=== PATIENT | female | born 1975 | race Caucasian/White ===

== ENCOUNTER 2017-11-27 16:55 | Outpatient (REF) | payer MEDICAID, SELFPAY ==
[2017-11-27 20:30] LABS: Abs Immature Grans 0.02 k/cumm (0.0-0.09); Absolute Basophil Count 0.07 k/cumm (0.0-0.2); Absolute Eosinophil Count 0.28 k/cumm (0.0-0.7); Absolute Lymphocyte Count 3.35 k/cumm (1.2-3.4); Absolute Monocyte Count 0.58 k/cumm (0.11-0.7); Absolute Neutrophil Count 5.65 k/cumm (1.2-6.7); Basophils % 0.7; Eosinophils % 2.8; HCT 45.5 % (36.0-46.0); Immature Grans % 0.2; Lymphocytes % 33.7; Mean Corpuscular Hemoglobin 31.1 pg (27.0-33.0); Mean Corpuscular Volume 94.4 fL (80-95); Mean Platelet Volume 9.5 fL (8.0-11.0); Monocytes % 5.8; Neutrophils % 56.8; Platelet Count 318 x1000/uL (130-400); RBC 4.82 m/cumm (4.00-5.20); RBC Distribution Width 13.4 % (11.7-14.6); White Blood Cell Count 9.95 k/cumm (4.4-10.8)
[2017-11-27 20:49] LABS: ALT 15 U/L (12-78); AST 11 U/L (15-37); Albumin 3.1 g/dL (3.4-5.0); Alkaline Phosphatase 103 U/L (46-116); Amylase 55 U/L (25-115); Anion Gap 10.9 mmol/L (3-11); BUN 9 mg/dL (7-18); Bilirubin, Total 0.2 mg/dL (0.2-1.0); CO2 27.1 mmol/L (21.0-32.0); CREATININE 0.71 mg/dL (0.55-1.02); Calcium 8.8 mg/dL (8.5-10.1); Chloride 106 mmol/L (98-107); Glucose 102 mg/dL (70-100); Lipase 110 U/L (73-393); Potassium 4.2 mmol/L (3.5-5.1); Sodium 144 mmol/L (136-145); Total Protein 6.2 g/dL (6.4-8.2)
== END 2017-11-27 17:15 ==
LOC: NCHCN 16:55
PROVIDERS: PCP Nurse Practitioner Family; Visit Provider Nurse Practitioner Family
DX: R10.9 Unspecified abdominal pain (principal)
CPT/HCPCS: 80053; 83690; 82150; 85025

== ENCOUNTER 2017-11-30 01:16 | Outpatient (CLI) | payer MEDICAID, SELFPAY ==
--- NOTE | 2017-11-30 08:15 | DI.CT_ITS ---
SYMPTOM/DIAGNOSIS: LOWER QUAD ABD PAIN, DIFFUSE R10.9 CT ABDOMEN AND PELVIS: The study was carried out according to the usual protocol with an intravenous administration of 100 cc Omnipaque 350 and oral ingestion of dilute Omnipaque. The lung bases are unremarkable. The liver is normal. The gallbladder is normal. There are no stones or ductal dilatation. The pancreas and spleen and kidneys are unremarkable. The adrenals are normal. There is no evidence of bowel obstruction or localized bowel abnormality. The appendix is intact. There is no evidence of free air or free fluid in the intraperitoneal space. The bladder is normal. There are small bilateral ovarian cysts. The uterus is normal. There is no evidence of an aortic aneurysm. There is no evidence of a hernia SUMMARY: No acute abnormality is demonstrated. Please see the above discussion.
[2017-11-30] MEDS: Omnipaque 350 MG/ML 50 ML BTL IJ (08:46)
[2017-11-30] MEDS: Omnipaque 350 MG/ML 100 ML BTL IJ (08:48)
== END 2017-11-30 01:36 ==
PROVIDERS: PCP Nurse Practitioner Family; Visit Provider Nurse Practitioner Family
DX: R10.31 Right lower quadrant pain (principal); N83.291 Other ovarian cyst, right side; N83.292 Other ovarian cyst, left side
CPT/HCPCS: 74177; J3490; Q9967

== ENCOUNTER 2018-01-03 01:29 | Outpatient (CLI) | payer MEDICAID, SELFPAY ==
--- NOTE | 2018-01-03 14:00 | DI.US_ITS ---
SYMPTOMS/DIAGNOSIS: PELVIC PAIN, N83.209, OVARIAN CYST PELVIC ULTRASOUND: A transabdominal and transvaginal examination was carried out. The uterus measures 8 cm in length, 4.3 cm in height and 5.1 cm in width with an endometrial stripe thickness of 2.5 mm. Note is made of small calcifications in the endometrial in the uterine fundus. There are small nabothian cysts. The right ovary measures 3.5 x 1.8 x 2.5 cm, the left ovary 1.6 x 1.9 x 3.0 cm. Follicular cysts are demonstrated in the right ovary. There is a 1.3 x 1.3 x 0.9 complex cyst in the left ovary, which may well represent a collapsing cyst. Normal blood flow is noted in the ovaries. There is nothing to suggest torsion. There is no free fluid in the pelvis. SUMMARY: A 1.3 x 1.3 x 0.9 cm complex cyst is noted in the left ovary and may represent a collapsing cyst; however, further evaluation with a repeat pelvic ultrasound in four to six weeks is suggested for further review.
== END 2018-01-03 01:49 ==
PROVIDERS: PCP Nurse Practitioner Family; Visit Provider Obstetrics & Gynecology Gynecology
DX: R10.2 Pelvic and perineal pain (principal); N83.292 Other ovarian cyst, left side
CPT/HCPCS: 76830; 76856

== ENCOUNTER 2018-08-18 16:09 | Emergency (ER) | payer MEDICAID, SELFPAY ==
[2018-08-18 16:15] VITALS: BP 133/84; PULSE 104; TEMP 37.2; O2SAT 98
--- NOTE | 2018-08-18 17:09 | DI.RAD_ITS ---
SYMPTOM/DIAGNOSIS: RIGHT GROIN/LATERAL PAIN. nO TRAUMA PELVIS AND RIGHT HIP: AP pelvis and AP and frog leg lateral views of the right hip were performed. The exam is somewhat limited by the patient's body habitus, reducing visualization of bony detail. There is no evidence of fracture or dislocation. There are no significant degenerative changes. There is no gross evidence of a lytic or blastic lesion. The SI joints are unremarkable. IMPRESSION: Negative pelvis and right hip
--- NOTE | 2018-08-18 17:09 | ED.GENADUL_ITS ---
Discharge Plan Disposition Patient Disposition: HOME Discharge Details Chief Complaint: Sorethroat Clinical Impression: Pharyngitis, Right hip pain Primary Care Provider: Angelita Cruz ED Provider: Nando Virgen Home Meds and New Rx's Prescriptions: No Action Flovent Diskus 250 mcg/actuation blister with device 1 inh IH Q12H RF: 0 nicotine 21 mg/24 hr patch 24 hour 1 patch TD Q24H RF: 0 omeprazole 20 MG capsule,delayed release(DR/EC) 20 mg PO DAILY RF: 0 cetirizine 5 MG tablet,chewable 10 mg PO DAILY RF: 0 levalbuterol tartrate [Xopenex HFA] 15 GM HFA aerosol inhaler 45 mcg Inhalation QID RF: 0 albuterol sulfate [ProAir HFA] 8.5 GM HFA aerosol inhaler 2 puff Inhalation Q6H PRN RF: 0 Savella 50 MG tablet 50 mg PO BID RF: 0 amitriptyline 100 MG tablet 100 mg PO HS RF: 0 clonazepam 1 MG tablet 1 mg PO DAILY RF: 0 acetaminophen [Tylenol] 325 MG tablet 650 mg PO Q6H PRN PRNQty: 30 RF: 0 Discharge Instructions Instructions: Pharyngitis (ED) Additional Instructions: Your strep screen was negative. We will follow-up with your culture results. X-rays of your hip were negative for fracture. Follow-up with your provider should your pain or symptoms persist. Return should pain worsen. Referrals: Angelita Cruz [Primary Care Provider] - 1 week Medical Decision Making This is a nontoxic-appearing 42-year-old female presenting with the above complaint. Vitals stable. Physical exam reveals focal tenderness over the anterior lateral right hip. Full range of motion. Pain with active range of motion. X-rays negative for acute osseous abnormality. Patient also noted to have URI symptoms including sore throat, nasal congestion, sinus pressure. Strep screen negative today. Supportive care discussed. Return precautions p rovided. She is stable for discharge at this time HPI General Date/Time Provider Initiated Documentation: 08/18/18 16:17 . HPI Narrative: Patient is a 42-year-old female with a significant past medical history for fibromyalgia, PTSD, tobacco abuse who presents to the emergency department today for sore throat and right hip pain. Patient states that she has had URI symptoms including rhinorrhea, ear congestion, sore throat and cough for the last 24 to 48 hours. She states that she is been taking cough drops for her sore throat. She denies any fever, nausea, abdominal pain or shortness of breath. Patient also complains of right hip pain. She has had hip pain in the past cervantes ana maría today her pain seems to be worse. She states that she was walking yesterday and her hip gave out. She locates her pain along the anterior lateral aspect of the right hip. Pain radiates down the lateral femur. She has been able to place weight over her right lower extremity however reports pain with active flexion and external rotation of the hip. No trauma. No numbness or tingling. She denies any lower back pain or abdominal pain. Related Data Home Medications Medication Instructions Recorded Confirmed cetirizine 10 mg PO DAILY tab-cap 07/23/12 08/18/18 levalbuterol tartrate [Xopenex HFA] 45 mcg INHALATION QID puff 07/23/12 08/18/18 omeprazole 20 mg PO DAILY tab-cap 07/23/12 08/18/18 amitriptyline 100 mg PO HS 04/11/13 08/18/18 clonazepam 1 mg PO DAILY 04/03/17 08/18/18 Savella 50 mg PO BID tab-cap NS 06/30/17 08/18/18 albuterol sulfate [ProAir HFA] 2 puff INHALATION Q6H PRN inhaler 06/30/17 08/18/18 NS acetaminophen [Tylenol] 650 mg PO Q6H PRN PRN #30 tab 07/13/17 08/18/18 fluticasone propionate 250 1 inh IH Q12H 01/01/18 08/18/18 mcg/actuation blister powder for inhalation nicotine 21 mg/24 hr daily 1 patch TD Q24H 01/01/18 08/18/18 transdermal patch Previous Rx's Medication Instructions Recorded acetaminophen [Tylenol] 650 mg PO Q6H PRN PRN #30 tab 07/13/17 Allergies Allergy/AdvReac Type Severity Reaction Status Date / Time erythromycin base Allergy Intermediate Unverified 08/18/18 16:19 [Erythromycin Base] Penicillins Allergy Intermediate Skin Rash Unverified 08/18/18 16:19 propoxyphene napsylate Allergy Intermediate Unverified 08/18/18 16:19 [From Darvocet-N 100] amoxicillin Allergy Unknown Verified 08/18/18 16:19 cyclobenzaprine Allergy Unverified 08/18/18 16:19 [From Flexeril] doxycycline Allergy Unverified 08/18/18 16:19 nabumetone Allergy Unverified 08/18/18 16:19 naproxen [From Aleve] Allergy Unverified 08/18/18 16:19 oxaprozin Allergy Unverified 08/18/18 16:19 ranitidine HCl [From Zantac] Allergy Unverified 08/18/18 16:19 Sulfa (Sulfonamide Allergy Unverified 08/18/18 16:19 Antibiotics) codeine [Codeine] AdvReac Intermediate Upset Unverified 08/18/18 16:19 stomach ibuprofen AdvReac Intermediate upset Unverified 08/18/18 16:19 stomach General Stated Complaint: Sorethroat KAYLYNN: 4 Review of Systems Constitutional Denies anorexia, Denies chills, Denies fever(s), Denies headache(s), Denies malaise, Denies night sweats and Denies weakness ENT Denies dysphagia, Denies dizziness, Denies dry mouth, Denies ear discharge, Denies headache(s), Reports nasal congestion, Reports sinus pain, Reports sore throat, Denies throat swelling and Denies tongue swelling Cardiovascular Denies dyspnea Respiratory Reports cough, Denies pain on inspiration, Denies pain with cough, Denies dyspnea and Denies wheezing Gastrointestinal Denies abdominal pain and Denies dysphagia Musculoskeletal Denies back pain, Denies deformity, Denies joint swelling, Reports limited range of motion, Denies muscle weakness, Denies numbness, Denies stiffness and Denies tingling Integumentary/Breasts Denies rash Neurologic Denies dizziness, Denies headache(s), Denies numbness, Denies tingling and Denies weakness Allergic/Immunologic Denies throat swelling, Denies tongue swelling and Denies wheezing [facility] Medical History PTSD (post-traumatic stress disorder) (Chronic) Mood disorder (Chronic) Anxiety disorder (Chronic) Fibromyalgia (Chronic) Asthma, mild persistent (Chronic) Tobacco abuse (Chronic) Learning difficulty (Chronic) Genital herpes (Chronic) Abdominal pain (Chronic) Back pain (Chronic) JULIEN II (cervical intraepithelial neoplasia II) (Acute) Follicular cyst of ovary (Acute) Varicose vein of leg (Acute) ADHD Lumbar back pain Mass of left thigh Myositis Vaginal discharge Surgical History Excision, Lesion (07/13/17) Social History Smoking/Tobacco Use Status: Former Tobacco Use Alcohol Intake: never Drug use: Never Substance use type: does not use Seatbelt use: always Do you feel safe at home: Yes Do you feel safe in your relationship?: Yes Exam Const General: cooperative and healthy appearing Orientation: alert, awake and oriented x3 HENMT Head: normal to inspection Ears: hearing grossly normal bilaterally and TM's normal bilaterally General nose exam: external nose normal Face and sinus: normal facial exam and sinuses nontender Mouth: oral mucosae normal Throat: posterior oropharynx abnormal erythema; no edema and no exudates Eyes General: appearance normal, both eyes and all related structures Neck Neck: normal visual inspection Lymphatic: lymphadenopathy Chest Chest: normal inspection of the chest Resp Effort & Inspection: normal respiratory effort and able to speak in complete sentences Auscultation: clear to auscultation bilaterally Cardio Rate: regular rate Rhythm: regular rhythm GI Inspection: normal to inspection Palpation: soft Back/Spine/Pelvis Thoracic/Lumbar Spine: thoracic and lumbar spine normal to inspection Skin General skin exam: no rashes or lesions noted Neuro Gait: normal gait Motor: muscle tone normal throughout Sensory Exam: no sensory deficits noted Extrem General: normal to inspection Right lower extremity: hip/thigh Details: normal to inspection, tenderness Location: of the hip and of the proximal upper leg and abnormal ROM Details: pain with passive ROM during Details: to flexion, to internal rotation and to external rotation Course Vital Signs Temperature 37.2 C 08/18/18 16:15 Pulse 104 H 08/18/18 16:15 Blood Pressure 133/84 08/18/18 16:15 Pulse Oximetry 98 08/18/18 16:15 Temperature 37.2 C 08/18/18 16:15 Pulse 104 H 08/18/18 16:15 Respiratory Effort 08/18/18 16:18 Blood Pressure 133/84 08/18/18 16:15 Pulse Oximetry 98 08/18/18 16:15 Oxygen Delivery Method Room Air 08/18/18 16:15 Oxygen Flow Rate 0 08/18/18 16:15 Lab/Test Results Lab/Test Results: 08/18/18 16:30 Pharynx Streptococcus Screen (MARLEN) - Pending POC Strep Test-ARNAUD(Rapid) Start: 08/18/18 16:44 Freq: .Rapid Strep Test Status: Active Protocol: Document 08/18/18 16:45 MM (Rec: 08/18/18 16:45 MM [id number]) Strep test-ARNAUD(Rapid)-POC POC-Strep test-ARNAUD (Rapid) Negative POC-Strep test-ARNAUD (Rapid) Negative
--- NOTE | 2018-08-18 17:20 | DI.VRAD_ITS ---
EXAM: XR Right Hip with Pelvis when Performed EXAM DATE/TIME: 08/18/2018 4:55 PM CLINICAL HISTORY: 42 years old, female; Right hip; Patient HX: Right groin/lateral hip pain, no trauma TECHNIQUE: Imaging protocol: XR Right hip with pelvis when performed. Views: 2 or 3 views. COMPARISON: US PELVIS TRANSVAGINAL 01/03/2018 10:07 AM FINDINGS: Bones/joints: Osseous anatomic alignment is well preserved. No acutely displaced fracture or dislocation. Joint spaces are well preserved. Soft tissues: Normal. IMPRESSION: Negative for acute skeletal pathology. Dictated and Authenticated by: Roman Mcgregor MD. Ordering:CELESTE Collier MD
== END 2018-08-18 17:42 | disposition home or self-care (01) ==
PROVIDERS: Emergency Provider Physician Assistant; PCP Nurse Practitioner Family
DX: M25.551 Pain in right hip (principal); J02.9 Acute pharyngitis, unspecified
CPT/HCPCS: 73502; 87081

== ENCOUNTER 2018-09-19 15:12 | Outpatient (REF) | payer MEDICAID, SELFPAY ==
[2018-09-19 19:58] LABS: Abs Immature Grans 0.02 k/cumm (0.0-0.09); Absolute Basophil Count 0.04 k/cumm (0.0-0.2); Absolute Eosinophil Count 0.21 k/cumm (0.0-0.7); Absolute Lymphocyte Count 2.77 k/cumm (1.2-3.4); Absolute Monocyte Count 0.72 k/cumm (0.11-0.7); Absolute Neutrophil Count 8.06 k/cumm (1.2-6.7); Basophils % 0.3; Eosinophils % 1.8; HCT 42.7 % (36.0-46.0); HGB 13.9 g/dL (12.0-15.5); Immature Grans % 0.2; Lymphocytes % 23.4; Mean Corp. HGB Concentration 32.6 g/dL (32.0-36.0); Mean Corpuscular Hemoglobin 30.5 pg (27.0-33.0); Mean Corpuscular Volume 93.8 fL (80-95); Mean Platelet Volume 9.4 fL (8.0-11.0); Monocytes % 6.1; Neutrophils % 68.2; Platelet Count 332 x1000/uL (130-400); RBC 4.55 m/cumm (4.00-5.20); RBC Distribution Width 14.5 % (11.7-14.6); White Blood Cell Count 11.82 k/cumm (4.4-10.8)
[2018-09-19 20:28] LABS: ALT 20 U/L (12-78); AST 11 U/L (15-37); Albumin 3.3 g/dL (3.4-5.0); Alkaline Phosphatase 87 U/L (46-116); Anion Gap 9.1 mmol/L (3-11); BUN 11 mg/dL (7-18); Bilirubin, Total 0.3 mg/dL (0.2-1.0); CO2 26.9 mmol/L (21.0-32.0); CREATININE 0.87 mg/dL (0.55-1.02); Calcium 8.9 mg/dL (8.5-10.1); Chloride 107 mmol/L (98-107); Glucose 75 mg/dL (70-100); Potassium 4.3 mmol/L (3.5-5.1); Sodium 143 mmol/L (136-145); Total Protein 6.5 g/dL (6.4-8.2)
== END 2018-09-19 15:32 ==
LOC: NCHCN 15:12
PROVIDERS: PCP Nurse Practitioner Family; Visit Provider Family Medicine
DX: R10.11 Right upper quadrant pain (principal)
CPT/HCPCS: 80053; 85025

== ENCOUNTER 2019-02-22 03:25 | Outpatient (CLI) | payer MEDICAID, SELFPAY ==
[2019-02-22] MEDS: Inhaler, Assist Device 1 EACH MC (10:40)
[2019-02-22] MEDS: Albuterol HFA 18 GM 200 PUFF INH IH (10:40)
--- NOTE | 2019-02-22 12:49 | PFT_ITS ---
PULMONARY FUNCTION TEST REPORT DATE OF SERVICE: February 22, 2019 REQUESTING PROVIDER: Ayesha Mendiola N.P. Spirometry shows moderately severe obstructive airways disease with significant bronchodilator response. Lung volumes show no evidence of restriction. Diffusion capacity moderately reduced, which is normal when corrected to alveolar volume. Airways resistance normal. IMPRESSION: Moderately severe obstructive airways disease with significant bronchodilator response. This is associated with moderate diffusion defect. Clinical correlation recommended. KAL/kathryn D/
== END 2019-02-22 03:45 ==
PROVIDERS: PCP Nurse Practitioner Family; Visit Provider Nurse Practitioner Family
DX: J45.909 Unspecified asthma, uncomplicated (principal); R06.09 Other forms of dyspnea; R06.2 Wheezing; F17.210 Nicotine dependence, cigarettes, uncomplicated
CPT/HCPCS: 94060; 94150; 94726; 94729

== ENCOUNTER 2019-07-15 09:16 | Emergency (ER) | payer MEDICAID, SELFPAY ==
--- NOTE | 2019-07-15 09:15 | DI.RAD_ITS ---
EXAM: XR FOOT RT COMPLETE CLINICAL HISTORY: Stepped through a box spring, twisting TECHNIQUE: COMPARISON: CR RIGHT FOOT COMPLETE from 09/16/2010 FINDINGS: Three views were obtained. There are fractures of the diaphyseal metaphyseal junctions of the 2nd th rough 4th metatarsals with slight displacement and angulation. No other fracture seen. IMPRESSION:
[2019-07-15 09:21] VITALS: BP 145/89; PULSE 109; RESP 20; TEMP 37.1; O2SAT 98
--- NOTE | 2019-07-15 10:25 | W.ED.GENAD ---
Discharge Plan Disposition Patient Disposition: HOME Condition: Stable Discharge Details Chief Complaint: Orthopedic Clinical Impression: Metatarsal fracture Primary Care Provider: Ayesha Mendiola ED Provider: Sunil Andrade Home Meds and New Rx's Prescriptions: No Action Flovent Diskus 250 mcg/actuation blister with device 1 inh IH Q12H RF: 0 nicotine 21 mg/24 hr patch 24 hour 1 patch TD Q24H RF: 0 omeprazole 20 MG capsule,delayed release(DR/EC) 20 mg PO DAILY RF: 0 cetirizine 5 MG tablet,chewable 10 mg PO DAILY RF: 0 levalbuterol tartrate [Xopenex HFA] 15 GM HFA aerosol inhaler 45 mcg Inhalation QID RF: 0 albuterol sulfate [ProAir HFA] 8.5 GM HFA aerosol inhaler 2 puff Inhalation Q6H PRN RF: 0 Savella 50 MG tablet 50 mg PO BID RF: 0 amitriptyline 100 MG tablet 100 mg PO HS RF: 0 clonazepam 1 MG tablet 1 mg PO DAILY RF: 0 acetaminophen [Tylenol] 325 MG tablet 650 mg PO Q6H PRN PRNQty: 30 RF: 0 Discharge Instructions Instructions: Foot Fracture in Adults (ED) Additional Instructions: Rest, elevate, cool compresses every 2 hours for 20 minutes. [id number] Tylenol and/or Motrin as directed for discomfort. Wear walking boot and use crutches, you may stop using crutches as tolerated but be sure to wear the boot and follow-up with our podiatry team. I have given you the referral to Dr. Moran, call his office later today or tomorrow for prompt outpatient reevaluation. Please watch for new or worsening symptoms and return to the ER for any concerns. Referrals: Giacomo Moran DPM [[facility] STAFF PHYSICIAN] - Discharge Data Discharge Date/Time-TO BE ENTERED AT DEPARTURE: 07/15/19 10:32 Medical Decision Making 43-year-old female presenting with right foot injury that occurred Monday after stepping through her box spring. Pain is persisting, decided to come to the ER for further evaluation. She appears well, no acute distress. Neuro, vascular, tendon intact. Will obtain x-ray to rule out any bony involvement. I read the right foot x-ray as a second, third, fourth distal metatarsal fracture, minimal displacement. Case discussed with Dr. Moran, recommends Cam walking boot, and he will be happy to follow the patient in his office. I discussed the x-ray and my conversation with podiatry with the patient. She feels as though she also needs crutches. Cam walking boot and crutches applied. Dr. Moran's name and number given to the patient she may contact his office later today for prompt outpatient reevaluation. Patient with no additional questions or concerns, comfortable discharge at this time Medical Records Medical records reviewed: Yes I reviewed the patient's medical records. Imaging Data Radiologic Study: Attestation: I personally reviewed and interpreted this imaging study as follows: Imaging: X-Ray My impression: Right foot x-ray read by me as minimally displaced second, third, fourth distal metatarsal fractures. HPI General Mode of arrival: ambulatory. Date/Time Provider Initiated Documentation: 07/15/19 09:17. Limitations to Documentation: no limitations. Information obtained by: patient. HPI Narrative: 43-year-old female with a history of PTSD, back pain, asthma, anxiety, current smoker, presents having stepped through her box spring on Monday injuring her right foot. She reports that the injury was a twisting mechanism and also directly struck the wooden frame. She initially thought the injury was a sprain however it is not getting any better with time and elevation. She denies any other injury, numbness, tingling, weakness. Reports the pain is moderate at rest, worse with weightbearing. Related Data Home Medications Medication Instructions Recorded Confirmed cetirizine 10 mg PO DAILY tab-cap 07/23/12 07/15/19 levalbuterol tartrate [Xopenex HFA] 45 mcg INHALATION QID puff 07/23/12 07/15/19 omeprazole 20 mg PO DAILY tab-cap 07/23/12 07/15/19 amitriptyline 100 mg PO HS 04/11/13 07/15/19 clonazepam 1 mg PO DAILY 04/03/17 07/15/19 Savella 50 mg PO BID tab-cap NS 06/30/17 07/15/19 albuterol sulfate [ProAir HFA] 2 puff INHALATION Q6H PRN inhaler 06/30/17 07/15/19 NS acetaminophen [Tylenol] 650 mg PO Q6H PRN PRN #30 tab 07/13/17 07/15/19 fluticasone propionate 250 1 inh IH Q12H 01/01/18 07/15/19 mcg/actuation blister powder for inhalation nicotine 21 mg/24 hr daily 1 patch TD Q24H 01/01/18 08/18/18 transdermal patch Previous Rx's Medication Instructions Recorded acetaminophen [Tylenol] 650 mg PO Q6H PRN PRN #30 tab 07/13/17 Allergies Allergy/AdvReac Type Severity Reaction Status Date / Time erythromycin base Allergy Intermediate Unverified 07/15/19 09:23 [Erythromycin Base] Penicillins Allergy Intermediate Skin Rash Unverified 07/15/19 09:23 propoxyphene napsylate Allergy Intermediate Unverified 07/15/19 09:23 [From Darvocet-N 100] amoxicillin Allergy Unknown Verified 07/15/19 09:23 cyclobenzaprine Allergy Unverified 07/15/19 09:23 [From Flexeril] doxycycline Allergy Unverified 07/15/19 09:23 nabumetone Allergy Unverified 07/15/19 09:23 naproxen [From Aleve] Allergy Unverified 07/15/19 09:23 oxaprozin Allergy Unverified 07/15/19 09:23 ranitidine HCl [From Zantac] Allergy Unverified 07/15/19 09:23 Sulfa (Sulfonamide Allergy Unverified 07/15/19 09:23 Antibiotics) codeine [Codeine] AdvReac Intermediate Upset Unverified 07/15/19 09:23 stomach ibuprofen AdvReac Intermediate upset Unverified 07/15/19 09:23 stomach General Stated Complaint: Orthopedic KAYLYNN: 4 Review of Systems Constitutional Constitutional: Denies weakness Cardiovascular Cardiovascular: Denies chest pain and Denies dyspnea Respiratory Respiratory: Denies cough and Denies dyspnea Musculoskeletal Musculoskeletal: Denies deformity, Denies numbness and Denies tingling Integumentary/Breasts Skin/Breast: Denies rash Neurologic Neurologic: Denies numbness, Denies tingling and Denies weakness PFSH Medical History Abdominal pain (Chronic) since ? 2016. CT scan neg for GI etiology. Pelvic u/s normal. ADHD Anxiety disorder (Chronic) Asthma, mild persistent (Chronic) Back pain (Chronic) JULIEN II (cervical intraepithelial neoplasia II) (Acute) Fibromyalgia (Chronic) Follicular cyst of ovary (Acute) Genital herpes (Chronic) Learning difficulty (Chronic) Lumbar back pain Mass of left thigh Mood disorder (Chronic) Myositis PTSD (post-traumatic stress disorder) (Chronic) Tobacco abuse (Chronic) Vaginal discharge Varicose vein of leg (Acute) Surgical History Excision, Lesion (07/13/17) left posterior thigh, benign vascular proliferation and mature fibroadipose tissue Social History Smoking/Tobacco Use Status: Current every day Tobacco Type: cigarettes Alcohol Intake: never Drug use: Never Substance use type: does not use Seatbelt use: always Do you feel safe at home: Yes Do you feel safe in your relationship?: Yes Exam Const General: cooperative, healthy appearing, comfortable and no acute distress Orientation: alert, awake and oriented x3 HENMT Head: normal to inspection, normocephalic and atraumatic Mouth: moist mucous membranes Eyes Conjunctivae: conjunctivae normal Neck Neck: normal visual inspection, trachea midline and supple Resp Effort & Inspection: normal respiratory effort and able to speak in complete sentences Cardio Rate: regular rate Rhythm: regular rhythm Skin General skin exam: no rashes or lesions noted Neuro General: patient alert, patient awake, moves all extremities and no focal motor deficits Sensory Exam: no sensory deficits noted Extrem General: full ROM and capillary refill normal Right lower extremity: full ROM, normal capillary refill and foot Details: normal capillary refill, tenderness (Dorsal aspect second-fourth metatarsal), toes with normal ROM and ecchymosis (Dorsal aspect of foot distal second-fourth metatarsal); no unusual warmth Psych Appearance: grossly normal Mental Status: mental status grossly normal Course Vital Signs Vital signs: Vital Signs Temperature 37.1 C 07/15/19 09:21 Pulse 109 H 07/15/19 09:21 Respiratory Rate 20 07/15/19 09:21 Blood Pressure 145/89 H 07/15/19 09:21 Pulse Oximetry 98 07/15/19 09:21 Temperature 37.1 C 07/15/19 09:21 Temperature Source Skin 07/15/19 09:21 Pulse 109 H 07/15/19 09:21 Respiratory Rate 20 07/15/19 09:21 Respiratory Effort Non-Labored 07/15/19 09:26 Blood Pressure 145/89 H 07/15/19 09:21 Blood Pressure Position Sitting 07/15/19 09:21 Pulse Oximetry 98 07/15/19 09:21 Oxygen Delivery Method Room Air 07/15/19 09:21 Oxygen Flow Rate 0 07/15/19 09:21 Pain Level 9 07/15/19 09:21
== END 2019-07-15 10:32 | disposition home or self-care (01) ==
PROVIDERS: Emergency Provider Physician Assistant; PCP Nurse Practitioner Family
DX: S92.321A Displaced fracture of second metatarsal bone, right foot, initial encounter for closed fracture (principal); S92.331A Displaced fracture of third metatarsal bone, right foot, initial encounter for closed fracture; S92.341A Displaced fracture of fourth metatarsal bone, right foot, initial encounter for closed fracture; X50.9XXA Other and unspecified overexertion or strenuous movements or postures, initial encounter
CPT/HCPCS: 28470; 73630; E0114; L4361

== ENCOUNTER 2019-10-01 19:48 | Outpatient (REF) | payer MEDICAID, SELFPAY ==
[2019-10-04 17:59] LABS: Amphetamine 2714 ng/mL (Cutoff: 25); Amphetamines Interpretation Positive.; MDA (Ecstasy Metabolite) Negative ng/mL (Cutoff: 25); MDMA (Ecstasy) Negative ng/mL (Cutoff: 25); Methamphetamine Negative ng/mL (Cutoff: 25); Phentermine Negative ng/mL (Cutoff: 25); Pseudoephedrine/Ephedrine Negative ng/mL (Cutoff: 25)
[2019-10-04 23:40] LABS: Benzoylecgonine Negative ng/mL (Cutoff: 50); Cocaine Negative ng/mL (Cutoff: 50); Cocaine Interpretation Negative.
[2019-10-05 03:07] LABS: 2-OH-Ethyl-Flurazepam Negative ng/mL (Cutoff: 100); 7-NH-Clonazepam Negative ng/mL (Cutoff: 100); 7-NH-Flunitrazepam Negative ng/mL (Cutoff: 50); Alpha OH-Alprazolam Negative ng/mL (Cutoff: 100); Alpha-OH-Triazolam Negative ng/mL (Cutoff: 100); Benzodiazepines Interpretation Negative.; Lorazepam Negative ng/mL (Cutoff: 100); Temazepam Negative ng/mL (Cutoff: 100)
[2019-10-05 05:42] LABS: Codeine Negative ng/mL (Cutoff: 25); Dihydrocodeine Negative ng/mL (Cutoff: 25); Hydrocodone Negative ng/mL (Cutoff: 25); Hydromorphone Negative ng/mL (Cutoff: 25); Morphine Negative ng/mL (Cutoff: 25); Naloxone Negative ng/mL (Cutoff: 25); Norhydrocodone Negative ng/mL (Cutoff: 25); Noroxycodone Negative ng/mL (Cutoff: 25); Noroxymorphone Negative ng/mL (Cutoff: 25); Opiates Interpretation Negative.
[2019-10-05 16:33] LABS: Methylphenidate 22 ng/mL; Ritalinic Acid NEGATIVE
[2019-10-06 11:59] LABS: Carboxy-THC Interpretation Negative.; Delta-9 CarboxyThc by LC-MS/MS Negative ng/mL (Cutoff:<3)
== END 2019-10-01 20:08 ==
LOC: NCHCN 19:48
PROVIDERS: PCP Nurse Practitioner Family; Visit Provider Nurse Practitioner Psychiatric/Mental Health
DX: Z51.81 Encounter for therapeutic drug level monitoring (principal)
CPT/HCPCS: 80324; 80349; 80360; 80361; 80346; 80353

== ENCOUNTER 2019-11-07 13:44 | Outpatient (REF) | payer MEDICAID, SELFPAY ==
[2019-11-14 03:54] LABS: 2-OH-Ethyl-Flurazepam Negative ng/mL (Cutoff: 100); 7-NH-Flunitrazepam Negative ng/mL (Cutoff: 50); Alpha OH-Alprazolam Negative ng/mL (Cutoff: 100); Alpha-OH-Triazolam Negative ng/mL (Cutoff: 100); Lorazepam Negative ng/mL (Cutoff: 100); Temazepam Negative ng/mL (Cutoff: 100)
== END 2019-11-07 14:04 ==
LOC: NCHCN 13:44
PROVIDERS: PCP Nurse Practitioner Family; Visit Provider Nurse Practitioner Psychiatric/Mental Health
DX: Z51.81 Encounter for therapeutic drug level monitoring (principal)
CPT/HCPCS: 80346

== ENCOUNTER 2019-12-04 02:09 | Outpatient (CLI) | payer MEDICAID, SELFPAY ==
--- NOTE | 2019-12-04 09:15 | DI.RAD_ITS ---
EXAM: XR SHOULDER RT COMPLETE 2+V CLINICAL HISTORY: RT SHOULDER JOINT PAIN,M25.511,RECURRENT DISLOCATIONS. TECHNIQUE: 2D digital imaging was performed. COMPARISON: No exams were available for comparison FINDINGS: BONES: No acute fracture is present. No old fracture deformities are seen. No bony destructive les ion is seen. JOINTS: No dislocation present. There is minimal spurring at the AC joint and glenohumeral joint. SOFT TISSUE: Normal. IMPRESSION: Mild degenerative changes. DATA REPOSITORY: RADIATION DOSE DELIVERED:
== END 2019-12-04 02:29 ==
PROVIDERS: PCP Nurse Practitioner Family; Visit Provider Physician Assistant
DX: M19.011 Primary osteoarthritis, right shoulder (principal); M77.8 Other enthesopathies, not elsewhere classified
CPT/HCPCS: 73030

== ENCOUNTER 2020-01-12 03:56 | Emergency (ER) | payer MEDICAID, SELFPAY ==
[2020-01-12 04:06] VITALS: BP 154/105; PULSE 121; RESP 22; TEMP 36.6; O2SAT 98
[2020-01-12 04:15] VITALS: PULSE 121; RESP 18; O2SAT 98
--- NOTE | 2020-01-12 04:15 | RT.EKG_ITS ---
APPROVED REPORT Exam: Resting ECG Patient Location: E HR:115 bpm ECG Measurements Heart Rate 115 AXIS DC 136 P 74 QRSd 70 QRS 9 QT 333 T 30 QTc 460 Conclusion Sinus tachycardia...rate> 99 Multiform ventricular premature complexes...short R-R, variable morphology Low voltage, precordial leads...precordial leads <1.0mV Physician: EKG 4: 34 Rate 115, sinus tachycardia, occasional PVC, no significant ST elevation or depression, no QT prolong ation, QRS prolongation, or other significant abnormality.
--- NOTE | 2020-01-12 04:34 | ED.GENADUL_ITS ---
Discharge Plan Disposition Patient Disposition: HOME Condition: Good Discharge Details Clinical Impression: Medication adverse effect, Misuse of drugs Primary Care Provider: Ayesha Mendiola ED Provider: Ramakrishna Ty Home Meds and New Rx's Prescriptions: Continued Flovent Diskus 250 mcg/actuation blister with device 1 inh IH Q12H RF: 0 omeprazole 20 MG capsule,delayed release(DR/EC) 20 mg PO DAILY RF: 0 cetirizine 5 MG tablet,chewable 10 mg PO DAILY RF: 0 levalbuterol tartrate [Xopenex HFA] 15 GM HFA aerosol inhaler 45 mcg Inhalation QID RF: 0 albuterol sulfate [ProAir HFA] 8.5 GM HFA aerosol inhaler 2 puff Inhalation Q6H PRN RF: 0 Savella 50 MG tablet 50 mg PO BID RF: 0 amitriptyline 100 MG tablet 100 mg PO HS RF: 0 acetaminophen [Tylenol] 325 MG tablet 650 mg PO Q6H PRN PRNQty: 30 RF: 0 Discharge Instructions Additional Instructions: It would be in your best interest to not snort Ritalin or Focalin. Please only take your amitriptyline as directed. Please follow-up closely with your counselor in your mental health specialist. Please drink plenty of fluids, and stay well-hydrated. If you notice any worsening of your symptoms, or any new symptoms such as vomiting, diarrhea, fever, chills, shortness of breath, chest pain, numbness, weakness, or fainting , please return immediately to the emergency department for reevaluation. Please follow up with your primary care provider as soon as possible for reassessment and reevaluation. As always, it was a pleasure participating in your medical care today. Referrals: Ayesha Mendiola [Primary Care Provider] - Medical Decision Making 44-year-old female with a past medical history of PTSD, anxiety disorder, fibromyalgia, asthma, mood disorder, presents today for unintentional overdose and auditory visual hallucinations. The patient's sister is at bedside. Per the patient and sister sounds like that patient had a friend grind up 1 Ritalin and one Focalin, she then snorted it, and she also took 1 tablet of amitriptyline. She is unable to give any other specifics as to the doses. Normally the patient does take amitriptyline 100 mg daily. Patient states that around this time she began hearing voices and thinking that people were at and around her house. She began saying things that were of concern to her. She contacted her sister who then brought her to the ER for further assessment. The patient's sister states that the patient gets like this occasionally when she has a psychotic episode usually secondary to taking these medications in the way is not intended. The patient currently denies seeing or hearing anything currently that is not real, she denies any homicidal or suicidal ideations. She states that she just wants to sleep. She denies any alcohol use tonight or any other IV or illicit drug use. She states that she does want help and does want to seek out a counselor to speak with at some point in the future. No other complaints at this time. Physical exam demonstrates pressured speech, mild flight of ideas, however she denies any auditory or visual hallucinations now. She is mildly tachycardic, mucous membranes notably dry. While this may certainly be a component of the effect of snorting the Ritalin and Focalin and taking the amitriptyline, her EKG shows no signs of widened QRS, or widened QTC so I notably doubt TCA overdose if this would be inconsistent. At this time she may be experiencing a mild schizophrenic episode. She does not seem to be harm to herself but I feel she does need medical clearance and further eval. We will rehydrate, evaluate for acute metabolic or toxicology logic etiology that could be the cause of her symptoms. I do feel that formal mental health evaluation would be beneficial. If the patient is not a threat to herself or others, and the sister is here with her in the room I do not feel that there is an indication for a one-to-one observer at this time. 7:30 AM Laboratory work-up is returned, notably unremarkable, after Ativan and some flui ds the patient was doing remarkably better. Urine drug screen was only positive for TCAs, however EKG shows no signs of QRS prolongation or QT prolongation or significant dysrhythmia. Heart rate normalized while the patient was here, and patient notably returned to her baseline. She was seen and assessed by mental health, at this time patient has no more auditory visual hallucinations, she feels well would like to go home. She denies any homicidal or suicidal ideations. Suspect that her initial symptomatology was likely secondary to snorting Ritalin and Focalin. Mental health will schedule close outpatient follow-up this week with counselors and then later with psychiatry. Discussed red flags which to return. Sister was at bedside and plan was also discussed with her. [facility] feels that the patient is safe for discharge and at this time I agree. Patient has been medically cleared. I have extensively reviewed the treatment plan and discharge instructions with the patient and their family. I have addressed all patient concerns at this time. The patient and family was made aware of what symptoms to monitor for that would warrant a return to the emergency department. Discussed the plan with the patient and family, they demonstrate verbal understanding and agreement with our assessment and plan at this time. EKG 4: 34 Rate 115, sinus tachycardia, occasional PVC, no significant ST elevation or depression, no QT prolongation, QRS prolongation, or other significant abnormality. HPI General Date/Time Provider Initiated Documentation: 01/12/20 04:04 . HPI Narrative: 44-year-old female with a past medical history of PTSD, anxiety disorder, fibromyalgia, asthma, mood disorder, presents today for unintentional overdose and auditory visual hallucinations. The patient's sister is at bedside. Per the patient and sister sounds like that patient had a friend grind up 1 Ritalin and one Focalin, she then snorted it, and she also took 1 tablet of amitriptyline. She is unable to give any other specifics as to the doses. Normally the patient does take amitriptyline 100 mg daily. Patient states that around this time she began hearing voices and thinking that people were at and around her house. She began saying things that were of concern to her. She contacted her sister who then brought her to the ER for further assessment. The patient's sister states that the patient gets like this occasionally when she has a psychotic episode usually secondary to taking these medications in the way is not intended. The patient currently denies seeing or hearing anything currently that is not real, she denies any homicidal or suicidal ideations. She states that she just wants to sleep. She denies any alcohol use tonight or any other IV or illicit drug use. She states that she does want help and does want to seek out a counselor to speak with at some point in the future. No other complaints at this time. Related Data Home Medications Medication Instructions Recorded Confirmed cetirizine 10 mg PO DAILY tab-cap 07/23/12 01/12/20 levalbuterol tartrate [Xopenex HFA] 45 mcg INHALATION QID puff 07/23/12 01/12/20 omeprazole 20 mg PO DAILY tab-cap 07/23/12 01/12/20 amitriptyline 100 mg PO HS 04/11/13 01/12/20 Savella 50 mg PO BID tab-cap NS 06/30/17 01/12/20 albuterol sulfate [ProAir HFA] 2 puff INHALATION Q6H PRN inhaler 06/30/17 01/12/20 NS acetaminophen [Tylenol] 650 mg PO Q6H PRN PRN #30 tab 07/13/17 01/12/20 fluticasone propionate 250 1 inh IH Q12H 01/01/18 01/12/20 mcg/actuation blister powder for inhalation Previous Rx's Medication Instructions Recorded acetaminophen [Tylenol] 650 mg PO Q6H PRN PRN #30 tab 07/13/17 Allergies Allergy/AdvReac Type Severity Reaction Status Date / Time erythromycin base Allergy Intermediate Verified 01/12/20 04:14 [Erythromycin Base] Penicillins Allergy Intermediate Skin Rash Verified 01/12/20 04:14 propoxyphene napsylate Allergy Intermediate Verified 01/12/20 04:14 [From Darvocet-N 100] amoxicillin Allergy Unknown Verified 01/12/20 04:14 cyclobenzaprine Allergy Verified 01/12/20 04:14 [From Flexeril] doxycycline Allergy Verified 01/12/20 04:14 nabumetone Allergy Verified 01/12/20 04:14 naproxen [From Aleve] Allergy Verified 01/12/20 04:14 oxaprozin Allergy Verified 01/12/20 04:14 ranitidine HCl [From Zantac] Allergy Verified 01/12/20 04:14 Sulfa (Sulfonamide Allergy Verified 01/12/20 04:14 Antibiotics) codeine [Codeine] AdvReac Intermediate Upset Verified 01/12/20 04:14 stomach ibuprofen AdvReac Intermediate upset Verified 01/12/20 04:14 stomach General Stated Complaint: OD/Poison KAYLYNN: 3 Review of Systems All systems reviewed & are unremarkable except as noted in HPI and below PFSH Medical History Abdominal pain since ? 2016. CT scan neg for GI etiology. Pelvic u/s normal. ADHD Anxiety disorder Asthma, mild persistent Back pain JULIEN II (cervical intraepithelial neoplasia II) Fibromyalgia Follicular cyst of ovary Genital herpes Learning difficulty Lumbar back pain Mass of left thigh Mood disorder Myositis PTSD (post-traumatic stress disorder) Right rotator cuff tendonitis Tobacco abuse Vaginal discharge Varicose vein of leg Surgical History Excision, Lesion (07/13/17) left posterior thigh, benign vascular proliferation and mature fibroadipose tissue Social History Smoking/Tobacco Use Status: Current every day Tobacco Type: cigarettes Smoking risk assessment performed?: Yes Alcohol Intake: never Drug use: Never Substance use type: former substance user Current gender identity: female Seatbelt use: always Do you feel safe at home: Yes Do you feel safe in your relationship?: Yes Exam Narrative Exam Narrative: 1.Const: Well-nourished, Well-developed, appearing stated age 2.Eyes: PERRL, no conjunctival injection, and symmetrical lids. 3.ENT: Atraumatic external nose and ears. Moist MM. Neck: Symmetric, trachea midline, No thyromegaly. Patient demonstrates good movement of cervical neck. There is no nuchal rigidity, no nuchal tenderness. Patient is able to flex the neck without any difficulty or significant pain. Negative Kernig's and Brudzinski sign. 4.CVS: +S1/S2, No murmurs or gallops. Peripheral pulses 2+ and equal in all extremities. Brisk capillary refill in all extremities. 5.RESP: Unlabored respiratory effort. Clear to auscultation bilaterally. No wheezes rales or rhonchi 6.GI: Soft, Nontender/Nondistended, No hepatosplenomegaly. No guarding or rebound. 7.MSK: Normocephalic/Atraumatic, Extremities w/o deformity or ttp No cyanosis or clubbing, Normal movement of all extremities. No hyperreflexia, no clonus, no leadpipe rigidity. Patellar reflexes +2 bilaterally. No asterixis. 8.Skin: Warm, Dry. No rashes or lesions. 9.Neuro: central services tech II-XII grossly intact. Sensation grossly intact, no focal neurologic deficits. All 6 cardinal planes of vision are fully intact. No evidence of rotatory or vertical nystagmus. The patient demonstrated a normal [id number], good dexterity. There was no evidence of dysdiadochokinesia. Patient was able to ambulate without difficulty. There was no wide-based gait Sensation was intact bilaterally as well as muscle strength bilaterally for all extremities. Patient was able to verbalize butter cup with no slurring, or miss pronunciation. 10.Psych: (AAO) x3. Mildly pressured speech, flight of ideas is present. Course Vital Signs Vital signs: Vital Signs Temperature 36.6 C 01/12/20 04:06 Pulse 121 H 01/12/20 04:06 Respiratory Rate 22 01/12/20 04:06 Blood Pressure 154/105 H 01/12/20 04:06 Pulse Oximetry 98 01/12/20 04:06 Temperature 36.6 C 01/12/20 04:06 Temperature Source Skin 01/12/20 04:06 Pulse 121 H 01/12/20 04:06 Respiratory Rate 22 01/12/20 04:06 Respiratory Effort Non-Labored 01/12/20 04:14 Respiratory Depth Normal 01/12/20 04:14 Respiratory Pattern Normal 01/12/20 04:14 Blood Pressure 154/105 H 01/12/20 04:06 Pulse Oximetry 98 01/12/20 04:06 Pain Level 3 01/12/20 04:06
[2020-01-12 04:45] VITALS: BP 134/87; PULSE 101; RESP 15; O2SAT 97
[2020-01-12 04:46] LABS: *AMPHETAMINES SCREEN URINE Negative (Negative); *BARBITURATES SCREEN URINE Negative (Negative); *BENZODIAZEPINES SCREEN URINE Negative (Negative); Cannabinoids THC Negative (Negative); Cocaine Screen,Urine Negative (Negative); METHADONE URINE SCREEN Negative (Negative); OPIATES URINE SCREEN Negative (Negative)
[2020-01-12 04:48] LABS: Tricyclic Antidepressants POSITIVE (Negative)
[2020-01-12 04:54] LABS: Abs Immature Grans 0.02 10^3/uL (0.0-0.06); Absolute Basophil Count 0.07 10^3/uL (0.0-0.2); Absolute Eosinophil Count 0.22 10^3/uL (0.0-0.7); Absolute Lymphocyte Count 2.33 10^3/uL (1.2-3.4); Absolute Monocyte Count 0.76 10^3/uL (0.1-0.8); Basophils % 0.7; Eosinophils % 2.2; HCT 43.9 % (36.0-46.0); HGB 14.3 g/dL (11.2-15.7); Immature Grans % 0.2; Lymphocytes % 22.8; MCH 30.5 pg (27.0-33.0); MCHC 32.6 % (32.0-36.0); MCV 93.6 fL (80-95); MPV 8.6 fL (8.0-11.0); Monocytes % 7.5; Neutrophils % 66.6; Nucleated RBC 0 %; Platelet Count 327 10^3/uL (130-400); RBC 4.69 10^6/uL (3.93-5.22); RDW 13.4 % (11.7-14.6); RDW-SD 45.9 fL
[2020-01-12] MEDS: LORazepam 2 MG/ML VIAL 1 MG IVP (04:54)
[2020-01-12] MEDS: Normal Saline 1,000 ML 1000 ML IV (04:56)
[2020-01-12 05:08] LABS: Salicylate 6.9 mg/dL (2.8-20.0)
[2020-01-12 05:10] LABS: ALT 13 U/L (14-59); AST 20 U/L (15-37); Albumin 3.3 g/dL (3.4-5.0); Alkaline Phosphatase 90 U/L (46-116); Anion Gap 10.3 mmol/L (3-11); BUN 9 mg/dL (7-18); Bilirubin, Total 0.5 mg/dL (0.2-1.0); CO2 23.7 mmol/L (21.0-32.0); CREATININE 0.89 mg/dL (0.55-1.02); Calcium 8.2 mg/dL (8.5-10.1); Chloride 106 mmol/L (98-107); Glucose 111 mg/dL (74-106); Magnesium 1.9 mg/dL (1.8-2.4); Potassium 3.8 mmol/L (3.5-5.1); Sodium 140 mmol/L (136-145); Total Protein 7.1 g/dL (6.4-8.2)
[2020-01-12 05:17] LABS: Acetaminophen 2 ug/mL (10-30)
[2020-01-12 05:22] LABS: ETHANOL BLOOD < 3.0 mg/dL (<3)
[2020-01-12 05:26] LABS: HCG Qual (Serum) Negative
--- NOTE | 2020-01-12 07:20 | PDOC.MHCN_ITS ---
Date of service: 01/12/20 Time of Service: 07:20 Mental Health Crisis Note Presenting Issue How did you arrive at the ED and why did you come: Elsa arrived to the ER this am via her sister after Elsa had misused Ritalin and Focalin due to peer pressure per Elsa's report. Precipitating Factors Elsa denied current SI and HI. I observed no signs of delusions. She does seem confused but was also sleeping very soundly when I was brought to the room to zoom. She had a hard time waking and staying awake. Disposition BEHAVIOR: Elsa was pleasant and tried to be engaged but struggled with some questions of the assessment due to a learning disability possibly of a processing kind. Elsa's sister was helpful in keeping her awake and trying to help re-ask the questions. I would have to rephrase the questions so as to get the answer I needed from Elsa even with the sisters help. EYE CONTACT: fair MOOD: Sleepy and remorseful for using the drugs tonight. AFFECT: tired APPETITE: Reports she is very hungry now and eats well as a norm. SLEEP(trouble falling/staying asleep: Reports that she feels her Amitriptyline is affecting her ability to sleep not just the ADHD meds she did tonight. Plan Elsa will make a f/u appointment with her PCP to discuss meds. I will do an in house referral for case management to assist Elsa with housing concerns. Dr. Ty would like her to see a psychiatrist around her meds. I will discuss this with her later when I reach out to check in. If Elsa is agreeable to this I will also put in that referral. Signature Clinician's Name/Title: Anat Swift MS, [facility] Emergency Services Clinician
[2020-01-12 07:49] VITALS: BP 128/82; PULSE 96; RESP 18; TEMP 37; O2SAT 98
== END 2020-01-12 07:32 | disposition home or self-care (01) ==
PROVIDERS: Emergency Provider Student in an Organized Health Care Education/Training Program; PCP Nurse Practitioner Family
DX: R44.0 Auditory hallucinations (principal); R44.1 Visual hallucinations; E86.0 Dehydration; T43.635A Adverse effect of methylphenidate, initial encounter
CPT/HCPCS: 36415; 80053; 80307; 81025; 93005; 96361; 96374; 99284; 80320; 80329; 83735; 84703; 85025; 93010; 99285; J2060

== ENCOUNTER 2020-02-27 17:49 | Outpatient (REF) | payer MEDICAID, SELFPAY ==
[2020-03-01 16:06] LABS: COVID-19 RT-PCR UVMMC Result Negative (Negative)
== END 2020-02-27 18:09 ==
LOC: NCHCN 17:49
PROVIDERS: PCP Nurse Practitioner Family; Visit Provider Nurse Practitioner Family
DX: R05 Cough (principal)
CPT/HCPCS: U0003

== ENCOUNTER 2020-04-07 15:54 | Outpatient (REF) | payer MEDICAID, SELFPAY ==
[2020-04-07 22:38] LABS: TSH (W/Ref FT4) 0.82 uIU/mL (0.36-3.74); Vitamin B12 291 pg/mL (193-986)
[2020-04-09 04:47] LABS: Vitamin D 25 Total 40.4 ng/ml (30-100)
== END 2020-04-07 15:55 | disposition home or self-care (01) ==
LOC: NCHCN 15:54
PROVIDERS: PCP Nurse Practitioner Family; Visit Provider Nurse Practitioner Psychiatric/Mental Health
DX: F39 Unspecified mood [affective] disorder (principal)
CPT/HCPCS: 82306; 82607; 84443

== ENCOUNTER 2020-05-05 03:01 | Outpatient (CLI) | payer MEDICAID, SELFPAY ==
[2020-05-07 13:06] LABS: Cotinine 366 ng/mL (<3.0); Nicotine 21 ng/mL (<3.0)
== END 2020-05-05 03:02 | disposition home or self-care (01) ==
LOC: LBO 03:02
PROVIDERS: PCP Nurse Practitioner Family; Visit Provider Student in an Organized Health Care Education/Training Program
DX: F17.200 Nicotine dependence, unspecified, uncomplicated (principal)
CPT/HCPCS: 36415; 80323

== ENCOUNTER 2020-05-08 06:13 | Day surgery (SDC) | payer MEDICAID, SELFPAY ==
[2020-05-08] VITALS (8 sets, daily range): BP systolic 110–135; BP diastolic 68–96; PULSE 92–114; RESP 17–28; TEMP 36–36.5; O2SAT 93–99
[2020-05-08] MEDS: Lactated Ringers 1,000 ML 100 ML IV (07:03)
[2020-05-08] MEDS: ceFAZolin 2 GM/50 ML BAG IVPB (07:44)
[2020-05-08] MEDS: EPINEPHrine 30 MG/30 ML VIAL (09:16)
--- NOTE | 2020-05-08 09:20 | ROE_ITS ---
Date of service: 05/08/20 Time of Service: 08:00 Operative Note Operative Note DATE OF PROCEDURE: 05/08/20 PRE-OP DIAGNOSIS: Right: 1. Labral tear 2. LHB tendinopathy 3. Bursitis 4. Impingement 5. Instability POST-OP DIAGNOSIS: other Right: 1. Labral tear 2. LHB tendinopathy 3. Bursitis 4. Impingement 5. Partial rotator cuff subscpularis tear PROCEDURE: Right: 1. Rotator cuff repair, CPT# 28851. This involved repair of the subscapularis using suture and anchor to close a tear defect and secure the rotator cuff to the footprint of the lesser tuberosity. 2. Arthroscopic biceps tenodesis, CPT# 07932. This involved arthroscopically suturing and reattaching the long head of the biceps tendon to the proximal humerus at the superior margin of the bicipital groove with a screw at the correct tension. 3. Extensive debridement, CPT# 42471. This involved using arthroscopic hand instruments, power instruments, and radiofrequency instruments to release to rel ease the long head of the biceps tendon and debride areas of labral tearing, synovitis, and chondromalacia about the biceps groove within the glenohumeral joint anteriorly, superiorly and posteriorly as well as partial rotator cuff tearing of the supraspinatus. 4. Subacromial decompression with partial acromioplasty, CPT# 36670. This involved using arthroscopic power instruments and a radiofrequency wand to complete a bursectomy and remove bone spurs on the undersurface of the acromion. 5. Capsulorrhaphy, CPT #23124. This involved suturing and reattaching the posterior capsule labral complex for posterior labral repair and plication. The assistant professor nurse education was medically required in order to help assist in techniques above, which require positioning the arm, holding the arthroscope, and manipulat ing multiple instruments and sutures at the same time. This cannot be done without the help of an experienced assistant professor nurse education. SURGEON: Will Herrmann SIX PACK PACKER: Luis Pollard ANESTHESIA TYPE: Local By Surgeon, General:No Airway and Primary Nerve Block Refer to Anesthesia Record ESTIMATED BLOOD LOSS: 15 PATHOLOGY: none sent COMPLICATIONS: None Patient was transported to: PACU Patient's condition: stable Implants: Arthrex: 4.75mm SwiveLocks x 1 and 2.9 mm PushLock x1 Indications: The patient was diagnosed with the above conditions and appropriately indicated for surgical intervention. Please see complete medical record for details. Findings: Exam under anesthesia: Full range of motion without any gross instability although difficult to appreciate any subtle subluxation given shoulder obesity Glenohumeral joint: Significant anterior and superior synovitis. Anterior labral fraying that continued into a SLAP tear that traveled posteriorly to the equator involving slight cartilage and bone loss most posteriorly. Mild long head biceps tendon injection. Subscapularis with significant upper border split tearing with grossly intact attachment to the lesser tuberosity although the tear extended a few centimeters from the lesser tuberosity medial and was full- thickness from anterior posterior. Intact articular sided supraspinatus and infraspinatus except for some anterior margin fraying of the articular supraspinatus. Moderate chondromalacia about the bicipital groove. Subacromial space: Moderate bursitis. Moderate undersurface acromial and distal clavicle bone spurring. Intact bursal rotator cuff. Procedure Description: In the operating room, general anesthesia was induced. Bilateral shoulders were examined. The patient was positioned in the beachchair position. All bony prominences were well-padded. Preoperative antibiotics were administered. The shoulder was prepped and draped in the usual sterile fashion. The correct patient, procedure, and side of the procedure were all verified prior to incision. Starting through the posterior portal a standard complete diagnostic arthroscopy was performed of the glenohumeral joint including inspection of the long head of the biceps, anterior and superior labrum, subscapularis tendon, supraspinatus and infraspinatus tendons, and axillary recess. The glenoid and humeral head cartilage as well as the posterior labrum were inspected from an anterior viewing portal. Significant findings and interventions noted above. Rigid cannula was established anteriorly. An all-arthroscopic suprapectoral biceps tenodesis was performed through an anterior portal using a Loop N Tack method with a SutureTape FiberLink cinched around and through the tendon. The biceps was tenotomized from the labrum and kept laterally for subscapularis work. A self retrieving suture passer was then used to pass a fiber tape just inferior to the horizontal split tear about the lateral margin of the subscapularis incorporating the tear and tested found to have good apposition of the tissue. Decision was made to repair to a suture anchor for secure fixation prevent tear propagation from last tuberosity. The punch was used to localize placement of a suture anchor at the superior margin of the bicipital groove just lateral superior to the subscapularis. Details from the subscapularis sutures were brought from medial to lateral through the eyelet of the suture anchor in the tail of the biceps tenodesis suture brought from lateral to medial. Suture anchor was then brought down and secured to bone without placing undue tension of the subscapularis and appropriately tension the biceps tenodesis. Repair was probed and inspected through range of motion found to be appropriate. Was no limitation to external rotation. Next the posterior labrum tear extended from the SLAP tear was inspected. There was diminutive posterior labral tissue. Given the patient complaints of subjective instability, the posterior labral tear, and loss of some cartilage posteriorly in the decision was made to proceed with a 1 anchor posterior labral capsular ligamentous complex repair and plication stitch. This will complete both anterior posterior work to the patient best chance of stability. Rigid cannula was moved posteriorly localized over spinal needle best trajectory for the tear and anchor placement on the glenoid. A 1 portal technique was used to pass stitch around the posterior capsule and labrum tear after the labral tear margin had been debrided and a fiber link shuttled over the tissue in cinch mode. The drill was used to drill guide for the push lock anchor, the sutures passed through the eyelet of the suture, and the suture anchor secured down to bone. Repair was tested and found of secure fixation. There was a slight prominence of plastic most superior that was removed using the [place] just barely millimeter. The posterior labral tissue remained diminutive but securely fixated the posterior margin glenoid. Starting through the posterior portal, the arthroscope was directed into the subacromial space. A lateral 50 yard line lateral portal was created. A combination of power instruments and a radiofrequency ablator were used to debride bursitis anteriorly, posteriorly, and laterally as well as expose and smooth bone spurring on the undersurface of the acromion. The coracoacromial ligament was partially released. The bursectomy was completed viewing laterally and working from posteriorly and the rotator cuff was thoroughly inspected with findings noted above. The distal clavicle was only slightly coplane to match the contour of the undersurface the acromion. The shoulder was drained of arthroscopic fluid. All portal sites were copiously irrigated. These incisions were closed using 3-0 Monocryl in a buried fashion, covered with Mastisol, Steri-Strips, Xeroform, dry gauze, and ABDs. The dressings were covered and secured with Medipore tape. The operative extremity was placed into a sling for immobilization. The patient awoke from anesthesia without complication and was transferred to the recovery room in a stable condition.
[2020-05-08] MEDS: Normal Saline Flush 10 ML SYR IV (10:35)
[2020-05-08] MEDS: HYDROmorphone 2 MG/ML VIAL IVP (10:35)
--- NOTE | 2020-05-08 12:14 | W.PM.DSUDISC ---
Discharge Plan Disposition Patient Disposition: HOME Condition: Stable Discharge Details Reason For Visit: Right shoulder surgery Attending Provider: Will Herrmann Primary Care Provider: Ayesha Mendiola Home Meds and New Rx's Prescriptions: New aspirin 81 mg tablet,delayed release (DR/EC) 81 mg PO DAILY 14 Days Qty: 14 RF: 0 oxycodone 5 mg tablet 5 - 10 mg PO Q4H PRN (Reason: moderate to severe pain) Qty: 16 RF: 0 Continued Flovent Diskus 250 mcg/actuation blister with device 1 inh IH Q12H RF: 0 omeprazole 20 MG capsule,delayed release(DR/EC) 20 mg PO DAILY RF: 0 cetirizine 5 MG tablet,chewable 10 mg PO DAILY RF: 0 levalbuterol tartrate [Xopenex HFA] 15 GM HFA aerosol inhaler 45 mcg Inhalation QID RF: 0 albuterol sulfate [ProAir HFA] 8.5 GM HFA aerosol inhaler 2 puff Inhalation Q6H PRN RF: 0 Savella 50 MG tablet 50 mg PO BID RF: 0 acetaminophen [Tylenol] 325 MG tablet 650 mg PO Q6H PRN PRNQty: 30 RF: 0 mirtazapine 7.5 mg tablet 7.5 mg PO HS RF: 0 Discharge Instructions Additional Instructions: Surgery: Shoulder arthroscopy with subscapularis rotator cuff repair, arthroscopic biceps tenodesis, extensive debridement, posterior labral repair and subacromial decompression. Activity: You should keep your arm at your side in a neutral position at all times except for physical therapy. Do not try to lift or raise your arm using your own muscles. You should use the sling whenever you are out of the house. You may have to adjust the abduction pillow or remove it for comfort. At home it is best to remove the sling and rest the arm on a pillow at your side or support the operative side with your other hand. You may allow the arm to dangle at your side. A physical therapy prescription will be sent electronically to begin in 2-3 weeks. Prescriptions: Aspirin 81 mg take 1 daily to prevent a blood clot for 2 weeks Oxycodone 5 mg take 1-2 every 4-6 hours as needed for severe pain You may use [id number] Tylenol (acetaminophen) as needed for mild pain. These pain medications may be taken all at once or in different combinations as needed. Also, recommend Colace (docusate) as a stool softener as surgery and pain medicine cause constipation. Dressings: Remove shoulder bandage after 3 days. Leave the sticky Steri-Strips in place until they fall off or remove them after you shower. Cover the incisions with Band-Aids or leave them open to air. You may shower after 5 days. Follow-up: 10-[address] Herrmann You may take off the leg compression stockings this evening at home. You may also leave them on a few days longer if you have a history of leg swelling or edema. Let us know right away if you develop any redness, drainage, fevers, chest pain, or trouble breathing. Do not drink alcohol or drive for at least 24 hours after anesthesia. Please call the office during business hours with any questions or concerns. Stand Alone Forms: Anesthesia Discharge Inst. Referrals: Will Herrmann MD [ [facility] STAFF PHYSICIAN] - Discharge Orders Discharge Orders: Discharge Order (Routine); Ordered 05/08/20 Ordered By: Will Herrmann DS: Diagnosis Discharge Diagnosis (1) Tear of right glenoid labrum: Status: Acute (2) Instability of right shoulder joint: Status: Acute (3) Tendonitis of long head of biceps brachii of right shoulder: Status: Acute (4) Bursitis of right shoulder: Status: Acute (5) Impingement syndrome of right shoulder: Status: Acute (6) Right rotator cuff tendonitis: Status: Deleted (7) Rotator cuff tear, right: Status: Acute
== END 2020-05-08 12:30 | disposition home or self-care (01) ==
PROVIDERS: PCP Nurse Practitioner Family; Visit Provider Student in an Organized Health Care Education/Training Program
PROC: (CPT 29805; principal; 2020-05-08 07:30)
PROC: (CPT 23430; 2020-05-08 07:30)
DX: S43.431A Superior glenoid labrum lesion of right shoulder, initial encounter (principal); M75.21 Bicipital tendinitis, right shoulder; M75.51 Bursitis of right shoulder; M75.41 Impingement syndrome of right shoulder; M75.81 Other shoulder lesions, right shoulder; M75.101 Unspecified rotator cuff tear or rupture of right shoulder, not specified as traumatic
CPT/HCPCS: 29806; 29827; 29826; 29823; 29828; 76942; 81025; J0690; J1100; J1885; J2001; J2250; J2370; J2405; J2704

== ENCOUNTER 2020-07-26 18:37 | Emergency (ER) | payer MEDICAID, SELFPAY ==
[2020-07-26 18:41] VITALS: BP 154/99; PULSE 94; RESP 18; TEMP 36.5; O2SAT 97
--- NOTE | 2020-07-26 18:50 | ED.GENADUL_ITS ---
Discharge Plan Disposition Patient Disposition: HOME Condition: Good Discharge Details Clinical Impression: Tick bite, Erythema migrans (Lyme disease) Primary Care Provider: Ayesha Mendiola ED Provider: Ramakrishna Ty Home Meds and New Rx's Prescriptions: New azithromycin 500 mg tablet 500 mg PO DAILY 6 Days Qty: 6 RF: 0 Continued Flovent Diskus 250 mcg/actuation blister with device 1 inh IH Q12H RF: 0 quetiapine [Seroquel] 50 mg tablet 50 mg PO DAILY RF: 0 atomoxetine [Strattera] 25 mg capsule 25 mg PO DAILY RF: 0 omeprazole 20 MG capsule,delayed release(DR/EC) 20 mg PO DAILY RF: 0 cetirizine 5 MG tablet,chewable 10 mg PO DAILY RF: 0 levalbuterol tartrate [Xopenex HFA] 15 GM HFA aerosol inhaler 45 mcg Inhalation QID RF: 0 albuterol sulfate [ProAir HFA] 8.5 GM HFA aerosol inhaler 2 puff Inhalation Q6H PRN RF: 0 Savella 50 mg tablet See Rx Instructions PO BID RF: 0 acetaminophen [Tylenol] 325 MG tablet 650 mg PO Q6H PRN PRNQty: 30 RF: 0 mirtazapine 7.5 mg tablet 7.5 mg PO HS RF: 0 Discharge Instructions Instructions: Azithromycin (By mouth), Tick Bite (ED) Additional Instructions: You have the early stages of erythema migrans which is a tickborne illness. Please take the azithromycin, 500 mg every day as directed for the next 6 days. Take a 25 mg Benadryl with it every day as well as there is a slight risk that you may have an allergic reaction from the azithromycin. As we discussed together there are risks and benefits with taking the medication and also with not taking the medication and letting the disease progress. Through our shared decision-making process you have elected to go ahead with the azithromycin treatment for the tickborne illness. The prescription for the medication has been sent to your pharmacy on file. Azithromycin is not the ideal treatment for this tic disease, but with your other allergies it seems like the best option at this time. Because of this it is very important to follow-up closely with your primary care provider in the next 5 to 7 days to make sure that the rash and illness has resolved and was treated completely. If you notice any worsening of your symptoms, or any new symptoms such as swelling, rash, difficulty breathing, vomiting, diarrhea, fever, chills, shortness of breath, chest pain, numbness, weakness, or fainting , please return immediately to the emergency department for reevaluation. Please follow up with your primary care provider as soon as possible for reassessment and reevaluation. As always, it was a pleasure participating in your medical care today. Referrals: Ayesha Mendiola [Primary Care Provider] - Medical Decision Making This is a pleasant 44-year-old female with multiple medical allergies, asthma, fibromyalgia, PTSD, who presents today for tick bite on her right arm. Patient states that about an hour or 2 ago she noticed a tick on her right forearm, she plucked it off. She did feel that it was engorged. She was uncertain as to how long it was on her. She noticed a small red rash around that area and came in for further evaluation. She denies any symptoms of fever, chills, myalgias. No other complaints at this time. She is uncertain as to the type of tick that it was. No other modifying factors. Exam demonstrates a 3 cm rash on the patient's right forearm. The tick said was still in place, I was able to remove this with tweezers. No evidence of abscess. Out of concern for erythema migrans the patient would benefit from antibiotic therapy. However a compounding component is her multiple allergies to doxycycline amoxicillin erythromycin. Patient states that she has tolerated azithromycin in the past. We will do a trial of this. We will give her a 500 mg dose here and 25 mg of Benadryl as well. She states that her reaction to erythromycin is just a rash on her skin. She denies any history of anaphylaxis or angioedema. I spent an extended period of time discussing with the patient the risks and benefits of antibiotic therapy, the risks of an allergic reaction, and the long-term consequences of Lyme disease. Patient has elected to go ahead with the antibiotic therapy understanding these risks. We will continue to monitor the patient here for 30 minutes after her dose, and discussed with her extensively signs and symptoms concerning for an allergic reaction and an outpatient status. Because we are using azithromycin, which is a less ideal treatment method, she will need close follow-up in the next 7 days to monitor for improvement or resolution of her symptoms. 7:40 p.m. Patient was monitored here in the ED, she has had no allergic reaction whatsoever. No rash, swelling, difficulty breathing, diarrhea or vomiting. Patient stable for discharge. Again discussed risks and benefits of treatment decision with symptoms for which to evaluate for. I have extensively reviewed the treatment plan and discharge instructions with the patient. I have addressed all patient concerns at this time. The patient was made aware of what symptoms to monitor for that would warrant a return to the emergency department. Discussed the plan with the patient, they demonstrate verbal understanding and agreement with our assessment and plan at this time. The documentation in this chart was dictated using [employer] dictation software. Please excuse any dictation errors. HPI General Date/Time Provider Initiated Documentation: 07/26/20 18:47 . HPI Narrative: This is a pleasant 44-year-old female with multiple medical allergies, asthma, fibromyalgia, PTSD, who presents today for tick bite on her right arm. Patient states that about an hour or 2 ago she noticed a tick on her right forearm, she plucked it off. She did feel that it was engorged. She was uncertain as to how long it was on her. She noticed a small red rash around that area and came in for further evaluation. She denies any symptoms of fever, chills, myalgias. No other complaints at this time. She is uncertain as to the type of tick that it was. No other modifying factors. Related Data Home Medications Medication Instructions Recorded Confirmed cetirizine 10 mg PO DAILY tab-cap 07/23/12 07/26/20 levalbuterol tartrate [Xopenex HFA] 45 mcg INHALATION QID puff 07/23/12 07/26/20 omeprazole 20 mg PO DAILY tab-cap 07/23/12 07/26/20 albuterol sulfate [ProAir HFA] 2 puff INHALATION Q6H PRN inhaler 06/30/17 07/26/20 NS acetaminophen [Tylenol] 650 mg PO Q6H PRN PRN #30 tab 07/13/17 07/26/20 fluticasone propionate 250 1 inh IH Q12H 01/01/18 07/26/20 mcg/actuation blister powder for inhalation mirtazapine 7.5 mg PO HS 05/06/20 07/26/20 Savella 50 mg tablet See Rx Instructions PO BID 05/20/20 07/26/20 tab-cap NS atomoxetine 25 mg capsule 25 mg PO DAILY cap 07/22/20 07/26/20 quetiapine 50 mg tablet 50 mg PO DAILY 07/22/20 07/26/20 azithromycin 500 mg PO DAILY 6 Days #6 tab 07/26/20 Previous Rx's Medication Instructions Recorded acetaminophen [Tylenol] 650 mg PO Q6H PRN PRN #30 tab 07/13/17 azithromycin 500 mg PO DAILY 6 Days #6 tab 07/26/20 Allergies Allergy/AdvReac Type Severity Reaction Status Date / Time erythromycin base Allergy Intermediate Skin Rash Verified 07/26/20 18:50 [Erythromycin Base] Penicillins Allergy Intermediate Skin Rash Verified 07/26/20 18:50 propoxyphene napsylate Allergy Intermediate Hives Verified 07/26/20 18:50 [From Darvocet-N 100] amoxicillin Allergy Unknown Skin Rash Verified 07/26/20 18:50 cyclobenzaprine Allergy unknown Verified 07/26/20 18:50 [From Flexeril] doxycycline Allergy rash, SOB, Verified 07/26/20 18:50 upset stomach nabumetone Allergy Skin Rash Verified 07/26/20 18:50 naproxen [From Aleve] Allergy Verified 07/26/20 18:50 oxaprozin Allergy unknown Verified 07/26/20 18:50 ranitidine HCl [From Zantac] Allergy unknown Verified 07/26/20 18:50 Sulfa (Sulfonamide Allergy Hives Verified 07/22/20 09:30 Antibiotics) codeine [Codeine] AdvReac Intermediate Upset Verified 07/22/20 09:30 stomach ibuprofen AdvReac Intermediate upset Verified 07/22/20 09:30 stomach General Stated Complaint: RashLesion KAYLYNN: 4 Review of Systems All systems reviewed & are unremarkable except as noted in HPI and below PFSH Medical History Abdominal pain since ? 2015. CT scan neg for GI etiology. Pelvic u/s normal. ADHD Anxiety disorder Asthma, mild persistent Back pain JULIEN II (cervical intraepithelial neoplasia II) Fibromyalgia Follicular cyst of ovary Genital herpes Learning difficulty Lumbar back pain Mass of left thigh Mood disorder Myositis PTSD (post-traumatic stress disorder) Tobacco abuse Vaginal discharge Varicose vein of leg Surgical History Excision, Lesion (07/13/17) left posterior thigh, benign vascular proliferation and mature fibroadipose tissue Hx of tubal ligation Social History Smoking/Tobacco Use Status: Current every day Tobacco Type: cigarettes Smoking risk assessment performed?: Yes Alcohol Intake: never Drug use: Never Substance use type: former substance user Current gender identity: female Seatbelt use: always Do you feel safe at home: Yes Exam Narrative Exam Narrative: 1.Const: Well-nourished, Well-developed, appearing stated age 2.Eyes: PERRL, no conjunctival injection, and symmetrical lids. 3.ENT: Atraumatic external nose and ears. Moist MM. Neck: Symmetric, trachea midline, No thyromegaly. 4.CVS: +S1/S2, No murmurs or gallops. Peripheral pulses 2+ and equal in all extremities. Brisk capillary refill in all extremities. 5.RESP: Unlabored respiratory effort. Clear to auscultation bilaterally. No wheezes rales or rhonchi 6.GI: Soft, Nontender/Nondistended, No hepatosplenomegaly. No guarding or rebound. 7.MSK: Normocephalic/Atraumatic, Extremities w/o deformity or ttp No cyanosis or clubbing, Normal movement of all extremities 8.Skin: Warm, Dry. The patient's right forearm demonstrates a bull's-eye lesion with a diameter of roughly 3 cm. The tick head was still in place, I was able to extract this with tweezers though. No fluctuance or evidence of abscess. 9.Neuro: citrus picker II-XII grossly intact. Sensation grossly intact, no focal neurologic deficits. 10.Psych: (AAO) x3. Appropriate mood and affect Course Vital Signs Vital signs: Vital Signs Temperature 36.5 C 07/26/20 18:41 Pulse 94 H 07/26/20 18:41 Respiratory Rate 18 07/26/20 18:41 Blood Pressure 154/99 H 07/26/20 18:41 Pulse Oximetry 97 07/26/20 18:41 Temperature 36.5 C 07/26/20 18:41 Temperature Source Temporal Artery Scan 07/26/20 18:41 Pulse 94 H 07/26/20 18:41 Respiratory Rate 18 07/26/20 18:41 Respiratory Effort 07/26/20 18:48 Blood Pressure 154/99 H 07/26/20 18:41 Blood Pressure Position Sitting 07/26/20 18:41 Pulse Oximetry 97 07/26/20 18:41 Oxygen Delivery Method Room Air 07/26/20 18:41 Oxygen Flow Rate 0 07/26/20 18:41 Pain Level 6 07/26/20 18:41
[2020-07-26] MEDS: diphenhydrAMINE 25 MG CAP PO (18:54)
[2020-07-26] MEDS: Azithromycin 250 MG TAB 500 MG PO (18:54)
[2020-07-26 19:00] VITALS: BP 163/97; PULSE 84; O2SAT 98
[2020-07-26 19:30] VITALS: BP 148/94; PULSE 84; TEMP 36.3; O2SAT 98
== END 2020-07-26 19:34 | disposition home or self-care (01) ==
PROVIDERS: Emergency Provider Student in an Organized Health Care Education/Training Program; PCP Nurse Practitioner Family
DX: A69.20 Lyme disease, unspecified (principal); S40.861A Insect bite (nonvenomous) of right upper arm, initial encounter; W57.XXXA Bitten or stung by nonvenomous insect and other nonvenomous arthropods, initial encounter
CPT/HCPCS: 99283

== ENCOUNTER 2020-08-17 15:08 | Emergency (ER) | payer MEDICAID, SELFPAY ==
[2020-08-17 15:20] VITALS: BP 144/93; PULSE 106; RESP 18; TEMP 36.9; O2SAT 97
--- NOTE | 2020-08-17 15:32 | ED.GENADUL_ITS ---
Discharge Plan Disposition Patient Disposition: HOME Condition: Good Discharge Details Clinical Impression: Itching Primary Care Provider: Ayesha Mendiola ED Provider: Ramakrishna Ty Home Meds and New Rx's Prescriptions: New hydroxyzine HCl 25 mg tablet 25 mg PO TID Qty: 30 RF: 0 Continued Flovent Diskus 250 mcg/actuation blister with device 1 inh IH Q12H RF: 0 quetiapine [Seroquel] 50 mg tablet 50 mg PO DAILY RF: 0 atomoxetine [Strattera] 25 mg capsule 25 mg PO DAILY RF: 0 omeprazole 20 MG capsule,delayed release(DR/EC) 20 mg PO DAILY RF: 0 cetirizine 5 MG tablet,chewable 10 mg PO DAILY RF: 0 levalbuterol tartrate [Xopenex HFA] 15 GM HFA aerosol inhaler 45 mcg Inhalation QID RF: 0 albuterol sulfate [ProAir HFA] 8.5 GM HFA aerosol inhaler 2 puff Inhalation Q6H PRN RF: 0 Savella 50 mg tablet See Rx Instructions PO BID RF: 0 acetaminophen [Tylenol] 325 MG tablet 650 mg PO Q6H PRN PRNQty: 30 RF: 0 mirtazapine 7.5 mg tablet 7.5 mg PO HS RF: 0 Discharge Instructions Additional Instructions: At this time there is no evidence of new bug bites on your skin or evidence of recent bites. Please take the Atarax/hydroxyzine as directed to help with the itching. A prescription has been sent to your local pharmacy. If this does not improve your symptoms please follow-up closely with your primary care provider as we may need to adjust your dose of quetiapine as this can sometimes cause a side effect of itching sensation. If you notice any worsening of your symptoms, or any new symptoms such as vomiting, diarrhea, fever, chills, shortness of breath, chest pain, numbness, weakness, or fainting , please return immediately to the emergency department for reevaluation. Please follow up with your primary care provider as soon as possible for reassessment and reevaluation. As always, it was a pleasure participating in your medical care today. Referrals: Ayesha Mendiola [Primary Care Provider] - Discharge Data Discharge Date/Time-TO BE ENTERED AT DEPARTURE: 08/17/20 17:34 Medical Decision Making 44-year-old female with a past medical history of ADHD, asthma, fibromyalgia, PTSD, mood disorder, presents today for evaluation of itching. Patient states that she feels like for the last 24 to 48 hours she has had itching all over her body which she attributes to bug bites. States that she feels that occasionally bugs crawling on her skin but she cannot see them. She denies any other auditory or visual hallucinations though. She denies any fever or chills. Of note she was seen 2 weeks ago and did have evidence of a tick bite at that time, with mild infection. She was prescribed azithromycin secondary to multiple allergies. She tolerated this well and completed the prescription. Patient has no other complaints at this time. No change in her medications recently. Her physical exam is notably unremarkable. Note evidence of significant bite huerta, scabies, tics or other abnormalities. Patient otherwise does not show any signs of psychosis or other abnormalities clinically. She may certainly have some mild itching secondary to allergies or some bites that I cannot see. We will do a prescription trial of Atarax, if this does not improve her symptoms I did recommend that she follow-up closely with her family doctor for reassessment of her quetiapine dose as this may certainly sometimes cause the symptoms. Otherwise patient does not clinically demonstrate evidence of an acute psychotic episode. The patient is able to speak clearly. There is no demonstration of any slurring of speech. There is evidence of clear decision making capacity. Patient is able to ambulate well without any difficulty. There are no signs of ataxia or stumbling motions. Will discharge home with close follow-up with PCP. Discussed red flags which to return. I have extensively reviewed the treatment plan and discharge instructions with the patient. I have addressed all patient concerns at this time. The patient was made aware of what symptoms to monitor for that would warrant a return to the emergency department. Discussed the plan with the patient, they demonstrate verbal understanding and agreement with our assessment and plan at this time. The documentation in this chart was dictated using [employer] dictation software. Please excuse any dictation errors. HPI General Date/Time Provider Initiated Documentation: 08/17/20 15:23 . HPI Narrative: 44-year-old female with a past medical history of ADHD, asthma, fibromyalgia, PTSD, mood disorder, presents today for evaluation of itching. Patient states that she feels like for the last 24 to 48 hours she has had itching all over her body which she attributes to bug bites. States that she feels that occasionally bugs crawling on her skin but she cannot see them. She denies any other auditory or visual hallucinations though. She denies any fever or chills. Of note she was seen 2 weeks ago and did have evidence of a tick bite at that time, with mild infection. She was prescribed azithromycin secondary to multiple allergies. She tolerated this well and completed the prescription. Patient has no other complaints at this time. No change in her medications recently. Related Data Home Medications Medication Instructions Recorded Confirmed cetirizine 10 mg PO DAILY tab-cap 07/23/12 08/17/20 levalbuterol tartrate [Xopenex HFA] 45 mcg INHALATION QID puff 07/23/12 08/17/20 omeprazole 20 mg PO DAILY tab-cap 07/23/12 08/17/20 albuterol sulfate [ProAir HFA] 2 puff INHALATION Q6H PRN inhaler 06/30/17 08/17/20 NS acetaminophen [Tylenol] 650 mg PO Q6H PRN PRN #30 tab 07/13/17 08/17/20 fluticasone propionate 250 1 inh IH Q12H 01/01/18 08/17/20 mcg/actuation blister powder for inhalation mirtazapine 7.5 mg PO HS 05/06/20 08/17/20 Savella 50 mg tablet See Rx Instructions PO BID 05/20/20 08/17/20 tab-cap NS atomoxetine 25 mg capsule 25 mg PO DAILY cap 07/22/20 08/17/20 quetiapine 50 mg tablet 50 mg PO DAILY 07/22/20 08/17/20 hydroxyzine HCl 25 mg PO TID #30 tab 08/17/20 Previous Rx's Medication Instructions Recorded acetaminophen [Tylenol] 650 mg PO Q6H PRN PRN #30 tab 07/13/17 hydroxyzine HCl 25 mg PO TID #30 tab 08/17/20 Allergies Allergy/AdvReac Type Severity Reaction Status Date / Time erythromycin base Allergy Intermediate Skin Rash Verified 08/17/20 15:25 [Erythromycin Base] Penicillins Allergy Intermediate Skin Rash Verified 08/17/20 15:25 propoxyphene napsylate Allergy Intermediate Hives Verified 08/17/20 15:25 [From Darvocet-N 100] amoxicillin Allergy Unknown Skin Rash Verified 08/17/20 15:25 cyclobenzaprine Allergy unknown Verified 08/17/20 15:25 [From Flexeril] doxycycline Allergy rash, SOB, Verified 08/17/20 15:25 upset stomach nabumetone Allergy Skin Rash Verified 08/17/20 15:25 naproxen [From Aleve] Allergy Verified 08/17/20 15:25 oxaprozin Allergy unknown Verified 08/17/20 15:25 ranitidine HCl [From Zantac] Allergy unknown Verified 08/17/20 15:25 Sulfa (Sulfonamide Allergy Hives Verified 08/17/20 15:25 Antibiotics) codeine [Codeine] AdvReac Intermediate Upset Verified 08/17/20 15:25 stomach ibuprofen AdvReac Intermediate upset Verified 08/17/20 15:25 stomach General Stated Complaint: RashLesion KAYLYNN: 4 Review of Systems All systems reviewed & are unremarkable except as noted in HPI and below PFSH Medical History Abdominal pain since ? 2016. CT scan neg for GI etiology. Pelvic u/s normal. ADHD Anxiety disorder Asthma, mild persistent Back pain JULIEN II (cervical intraepithelial neoplasia II) Fibromyalgia Follicular cyst of ovary Genital herpes Learning difficulty Lumbar back pain Mass of left thigh Mood disorder Myositis PTSD (post-traumatic stress disorder) Tobacco abuse Vaginal discharge Varicose vein of leg Surgical History Excision, Lesion (07/13/17) left posterior thigh, benign vascular proliferation and mature fibroadipose tissue Hx of tubal ligation Social History Smoking/Tobacco Use Status: Current every day Tobacco Type: cigarettes Smoking risk assessment performed?: Yes Alcohol Intake: never Drug use: Never Substance use type: former substance user Current gender identity: female Seatbelt use: always Do you feel safe at home: Yes Do you feel safe in your relationship?: Yes Exam Narrative Exam Narrative: 1.Const: Well-nourished, Well-developed, appearing stated age 2.Eyes: PERRL, no conjunctival injection, and symmetrical lids. 3.ENT: Atraumatic external nose and ears. Moist MM. Neck: Symmetric, trachea midline, No thyromegaly. 4.CVS: +S1/S2, No murmurs or gallops. Peripheral pulses 2+ and equal in all extremities. Brisk capillary refill in all extremities. 5.RESP: Unlabored respiratory effort. Clear to auscultation bilaterally. No wheezes rales or rhonchi 6.GI: Soft, Nontender/Nondistended, No hepatosplenomegaly. No guarding or rebound. 7.MSK: Normocephalic/Atraumatic, Extremities w/o deformity or ttp No cyanosis or clubbing, Normal movement of all extremities 8.Skin: Warm, Dry. No rashes or lesions. No evidence of rash in the intertriginous areas, no new bite huerta. No significant lesions. 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 Sensation grossly intact, no focal neurologic deficits. 10.Psych: (AAO) x3. Appropriate mood and affect Course Vital Signs Vital signs: Vital Signs Temperature 36.9 C 08/17/20 15:20 Pulse 106 H 08/17/20 15:20 Respiratory Rate 18 08/17/20 15:20 Blood Pressure 144/93 H 08/17/20 15:20 Pulse Oximetry 97 08/17/20 15:20 Temperature 36.9 C 08/17/20 15:20 Temperature Source Temporal Artery Scan 08/17/20 15:20 Pulse 106 H 08/17/20 15:20 Respiratory Rate 18 08/17/20 15:20 Blood Pressure 144/93 H 08/17/20 15:20 Blood Pressure Position Standing 08/17/20 15:20 Pulse Oximetry 97 08/17/20 15:20 Oxygen Delivery Method Room Air 08/17/20 15:20 Oxygen Flow Rate 0 08/17/20 15:20 Pain Level 6 08/17/20 15:20
[2020-08-17] MEDS: hydrOXYzine HCL 25 MG TAB PO (15:40)
== END 2020-08-17 17:34 | disposition home or self-care (01) ==
PROVIDERS: Emergency Provider Student in an Organized Health Care Education/Training Program; PCP Nurse Practitioner Family
DX: L29.9 Pruritus, unspecified (principal)
CPT/HCPCS: 99283

== ENCOUNTER 2020-09-21 18:06 | Outpatient (REF) | payer MEDICAID, SELFPAY ==
[2020-09-22 10:09] LABS: Lyme Ab w Rflx to Lyme Confirm Negative (Negative)
[2020-09-22 11:57] LABS: COVID-19 RT-PCR UVMMC Result Negative (Negative)
== END 2020-09-21 18:07 | disposition home or self-care (01) ==
LOC: NCHCN 18:06
PROVIDERS: PCP Nurse Practitioner Family; Visit Provider Nurse Practitioner
DX: A69.20 Lyme disease, unspecified (principal); R05 Cough; Z20.822 Contact with and (suspected) exposure to COVID-19
CPT/HCPCS: U0003; 86618

== ENCOUNTER 2021-06-21 15:51 | Emergency (ER) | payer MEDICAID, SELFPAY ==
[2021-06-21 15:55] VITALS: BP 149/113; PULSE 114; RESP 18; TEMP 35.9; O2SAT 94
--- NOTE | 2021-06-21 17:05 | ED.GENADUL_ITS ---
Discharge Plan Disposition Patient Disposition: HOME Condition: Stable Discharge Details Clinical Impression: Tick bite Primary Care Provider: Ayesha Mendiola ED Provider: Sunil Andrade Home Meds and New Rx's Prescriptions: Continued Flovent Diskus 250 mcg/actuation blister with device 1 inh IH Q12H 0RF quetiapine [Seroquel] 50 mg tablet 50 mg PO DAILY 0RF atomoxetine [Strattera] 25 mg capsule 25 mg PO DAILY 0RF omeprazole 20 MG capsule,delayed release(DR/EC) 20 mg PO DAILY 0RF cetirizine 5 MG tablet,chewable 10 mg PO DAILY 0RF levalbuterol tartrate [Xopenex HFA] 15 GM HFA aerosol inhaler 45 mcg Inhalation QID 0RF albuterol sulfate [ProAir HFA] 8.5 GM HFA aerosol inhaler 2 puff Inhalation Q6H PRN 0RF Savella 50 mg tablet See Rx Instructions PO BID 0RF Rx Instructions: PO twice a day; acetaminophen [Tylenol] 325 MG tablet 650 mg PO Q6H PRN PRNQty: 30 0RF mirtazapine 7.5 mg tablet 7.5 mg PO HS 0RF Label Comments: TAKE ONE TABLET BY MOUTH AT BEDTIME hydroxyzine HCl 25 mg tablet 25 mg PO TID Qty: 30 0RF Discharge Instructions Instructions: Tick Bite (ED) Additional Instructions: I do not see any obvious remaining tick from your tick bite around 1:00 today. We discussed a prophylactic single dose of antibiotics but you have declined. Please watch for new or worsening symptoms and return to the ER for any concerns. Cool and/or warm compresses every 2 hours for 20 minutes. Change antibiotic dressing daily. Medical Decision Making Patient reports a tick bite around 1:00 this afternoon, removed the tick with tweezers but her friend thought maybe a piece of tick was still present. She has no additional concerns or complaints at this time. Patient states that she is allergic to all antibiotics and does not want any antibiotics for this tick bite, not even a prophylactic dose of doxycycline. I am unable to see any obvious foreign body. Using an 11 blade and looking with an otoscope, I was able to gently scrape away the scab. I was able to see the base of the wound and I still see no evidence of residual tick. Bacitracin dressing applied. Patient tolerated well. Standard discharge and return precautions were provided. This documentation was generated using [employer] system, please disregard any oddities of phrase or misspellings. Medical Records Medical records reviewed: Yes I reviewed the patient's medical records. HPI General Mode of arrival: ambulatory . Date/Time Provider Initiated Documentation: 06/21/21 16:01 . Limitations to Documentation: no limitations . Information obtained by: patient . History of Present Illness 45 year old F presents to the emergency department with the chief complaint of L leg tick bite, described as mild, with intensity rated at 2. Quality is described as aching, and is localized to the left and lower extremity. Patient reports no radiation. Patient started experiencing this hour(s) (4.5) and it has been other (removed tick already). improves with No relieving factors improve symptom(s), No exacerbating factors reported . Patient notes rash (redness). Patient did receive the following treatments prior to arrival, none Related Data Home Medications Medication Instructions Recorded Confirmed cetirizine 5 mg chewable tablet 10 mg PO DAILY tab-cap 07/23/12 08/17/20 levalbuterol tartrate 45 45 mcg INHALATION QID puff 07/23/12 08/17/20 mcg/actuation aerosol inhaler (Xopenex HFA) omeprazole 20 mg capsule,delayed 20 mg PO DAILY tab-cap 07/23/12 08/17/20 release ProAir HFA 90 mcg/actuation 2 puff INHALATION Q6H PRN inhaler 06/30/17 08/17/20 aerosol inhaler (albuterol sulfate) NS acetaminophen 325 mg tablet 650 mg PO Q6H PRN PRN #30 tab 07/13/17 08/17/20 (Tylenol) fluticasone propionate 250 1 inh IH Q12H 01/01/18 08/17/20 mcg/actuation blister powder for inhalation (Flovent Diskus) mirtazapine 7.5 mg tablet 7.5 mg PO HS 05/06/20 08/17/20 Savella 50 mg tablet (milnacipran) See Rx Instructions PO BID 05/20/20 08/17/20 tab-cap NS atomoxetine 25 mg capsule 25 mg PO DAILY cap 07/22/20 08/17/20 (Strattera) quetiapine 50 mg tablet (Seroquel) 50 mg PO DAILY 07/22/20 08/17/20 hydroxyzine HCl 25 mg tablet 25 mg PO TID #30 tab 08/17/20 Previous Rx's Medication Instructions Recorded acetaminophen 325 mg tablet 650 mg PO Q6H PRN PRN #30 tab 07/13/17 (Tylenol) hydroxyzine HCl 25 mg tablet 25 mg PO TID #30 tab 08/17/20 Allergies Allergy/AdvReac Type Severity Reaction Status Date / Time erythromycin base Allergy Intermediate Skin Rash Verified 08/17/20 15:25 [Erythromycin Base] Penicillins Allergy Intermediate Skin Rash Verified 08/17/20 15:25 propoxyphene napsylate Allergy Intermediate Hives Verified 08/17/20 15:25 [From Darvocet-N 100] amoxicillin Allergy Unknown Skin Rash Verified 08/17/20 15:25 cyclobenzaprine Allergy unknown Verified 08/17/20 15:25 [From Flexeril] doxycycline Allergy rash, SOB, Verified 08/17/20 15:25 upset stomach nabumetone Allergy Skin Rash Verified 08/17/20 15:25 naproxen [From Aleve] Allergy Verified 08/17/20 15:25 oxaprozin Allergy unknown Verified 08/17/20 15:25 ranitidine HCl [From Zantac] Allergy unknown Verified 08/17/20 15:25 Sulfa (Sulfonamide Allergy Hives Verified 08/17/20 15:25 Antibiotics) codeine [Codeine] AdvReac Intermediate Upset Verified 08/17/20 15:25 stomach ibuprofen AdvReac Intermediate upset Verified 08/17/20 15:25 stomach General Stated Complaint: Cellulitis KAYLYNN: 4 Review of Systems Constitutional Constitutional: Denies fever(s) and Denies weakness Musculoskeletal Musculoskeletal: Denies arthralgias, Denies numbness and Denies tingling Integumentary/Breasts Skin/Breast: Reports erythema and Denies rash Neurologic Neurologic: Denies numbness, Denies tingling and Denies weakness PFSH All Active Problems Tick bite (Acute) Erythema migrans (Lyme disease) (Acute) Itching (Acute) Tick bite (Acute) Rotator cuff tear, right (Acute) Tenosynovitis (Chronic 07/01/13) Tear of right glenoid labrum (Acute) Instability of right shoulder joint (Acute) Tendonitis of long head of biceps brachii of right shoulder (Acute) Bursitis of right shoulder (Acute) Impingement syndrome of right shoulder (Acute) PTSD (post-traumatic stress disorder) (Chronic) Mood disorder (Chronic) Anxiety disorder (Chronic) Fibromyalgia (Chronic) Asthma, mild persistent (Chronic) Tobacco abuse (Chronic) Learning difficulty (Chronic) Genital herpes (Chronic) Abdominal pain (Chronic) since ? 2016. CT scan neg for GI etiology. Pelvic u/s normal. Back pain (Chronic) Medical History ADHD JULIEN II (cervical intraepithelial neoplasia II) Follicular cyst of ovary Lumbar back pain Mass of left thigh Myositis Vaginal discharge Varicose vein of leg Surgical History Excision, Lesion (07/13/17) left posterior thigh, benign vascular proliferation and mature fibroadipose tissue Hx of tubal ligation Social History Smoking/Tobacco Use Status: Current every day Tobacco Type: cigarettes Smoking risk assessment performed?: Yes Alcohol Intake: never Drug use: Never Substance use type: former substance user Current gender identity: female Seatbelt use: always Do you feel safe at home: Yes Do you feel safe in your relationship?: Yes Exam Const General: cooperative, healthy appearing, comfortable and no acute distress Orientation: alert and awake HENMT Head: normal to inspection, normocephalic and atraumatic Eyes Conjunctivae: conjunctivae normal Neck Neck: normal visual inspection, trachea midline and supple Resp Effort & Inspection: normal respiratory effort and able to speak in complete sentences Cardio Rate: regular rate Rhythm: regular rhythm Skin Rashes: no rashes Neuro General: patient alert, patient awake, moves all extremities and no focal motor deficits Speech: speech normal Gait: normal gait Motor: muscle tone normal throughout Sensory Exam: no sensory deficits noted Extrem General: full ROM and capillary refill normal Upper/lower leg/hip images: 1. 1 cm diameter erythema with central scabbing, no obvious foreign body. No warmth, tenderness, lymphangitic streaking. No induration or fluctuance. Psych Appearance: grossly normal Mental Status: mental status grossly normal Course Vital Signs Vital signs: Vital Signs Temperature 35.9 C L 04/18/22 15:55 Pulse 114 H 06/21/21 15:55 Respiratory Rate 18 06/21/21 15:55 Blood Pressure 149/113 H 06/21/21 15:55 Pulse Oximetry 94 06/21/21 15:55 Temperature 35.9 C L 06/21/21 15:55 Temperature Source Skin 06/21/21 15:55 Pulse 114 H 06/21/21 15:55 Respiratory Rate 18 06/21/21 15:55 Respiratory Effort 06/21/21 16:00 Blood Pressure 149/113 H 06/21/21 15:55 Blood Pressure Position Sitting 06/21/21 15:55 Pulse Oximetry 94 06/21/21 15:55 Oxygen Delivery Method Room Air 06/21/21 15:55 Oxygen Flow Rate 0 06/21/21 15:55 Pain Level 0 06/21/21 15:55
== END 2021-06-21 17:32 | disposition home or self-care (01) ==
PROVIDERS: Emergency Provider Physician Assistant; PCP Nurse Practitioner Family
DX: S80.862A Insect bite (nonvenomous), left lower leg, initial encounter (principal); W57.XXXA Bitten or stung by nonvenomous insect and other nonvenomous arthropods, initial encounter
CPT/HCPCS: 99282

== ENCOUNTER 2021-10-21 10:27 | Outpatient (REF) | payer MEDICAID, SELFPAY ==
--- NOTE | 2021-10-21 09:35 | PAPFT_PTH ---
PATIENT: Elsa Oh LOC: [facility]#:[id number] AGE/SX: 45/F ROOM: RE10/21/[address]: Ayesha Mendiola : 1975 BED: DIS: 10/21/2021 SPEC #: [id number] RECD: 10/21/21 17:02 STATUS: VESNA RENeelima #: [id number] THIAGO: 10/21/21 09:[address]: Ayesha Mendiola DEPT: [facility] Cytology RECD BY: Kellen Montes Tissues: 1 - CX/ENDOCX FOR PAP SMEARS Procedures: PAP THIN PREP/UVM Screening HPV DNA PROBE Comments: [id number]
[2021-10-21 16:04] LABS: ALT 22 U/L (14-59); AST 22 U/L (15-37); Alkaline Phosphatase 102 U/L (46-116); Anion Gap 9.6 mmol/L (3-11); BUN 10 mg/dL (7-18); Bilirubin, Total 0.4 mg/dL (0.2-1.0); CO2 27.4 mmol/L (21.0-32.0); CREATININE 0.9 mg/dL (0.55-1.02); Calcium 9.1 mg/dL (8.5-10.1); Calculated LDL 106 mg/dL (<100); Chloride 106 mmol/L (98-107); Cholesterol 168 mg/dL (<200); Glucose 99 mg/dL (74-106); HDL Cholesterol 31 mg/dL (40-60); Potassium 4.1 mmol/L (3.5-5.1); Sodium 143 mmol/L (136-145); Total Protein 7.4 g/dL (6.4-8.2); Triglyceride 157 mg/dL (<150)
== END 2021-10-21 10:28 | disposition home or self-care (01) ==
LOC: NCHCN 10:27
PROVIDERS: PCP Nurse Practitioner Family; Visit Provider Nurse Practitioner Family
DX: Z13.220 Encounter for screening for lipoid disorders (principal); E66.8 Other obesity; Z68.39 Body mass index [BMI] 39.0-39.9, adult; Z12.4 Encounter for screening for malignant neoplasm of cervix; N76.0 Acute vaginitis; Z11.51 Encounter for screening for human papillomavirus (HPV)
CPT/HCPCS: 80053; 80061; 88142; 87624

== ENCOUNTER 2022-02-05 09:55 | Emergency (ER) | payer MEDICAID, SELFPAY ==
[2022-02-05 09:59] VITALS: BP 181/97; PULSE 96; RESP 16; TEMP 36.8; O2SAT 97
--- NOTE | 2022-02-05 10:15 | DI.RAD_ITS ---
Exam(s) XR RIBS LT W PA LAT CHEST EXAM: XR RIBS LT W PA LAT CHEST CLINICAL HISTORY: pain after coughing TECHNIQUE: COMPARISON: CR CHEST 2 VIEWS PA,LAT from 04/18/2013 FINDINGS: PA and lateral views of the chest and 3 additional views of the left ribs were obtained. The heart i s not enlarged. There are prominent epicardial fat pads bilaterally, unchanged from prior examinatio n of 2013. The lungs are clear. No pleural effusion. No rib fracture. IMPRESSION: Negative examination of the chest and left ribs. RADIATION DOSE DELIVERED: Total DLP
[2022-02-05] MEDS: Dexamethasone 4 MG TAB 10 MG PO (10:51)
[2022-02-05] MEDS: oxyCODONE 5 MG TAB PO (10:51)
--- NOTE | 2022-02-05 11:10 | DI.VRAD_ITS ---
PROCEDURE INFORMATION: Exam: XR Left Ribs Exam date and time: 02/05/2022 10:55 AM Age: 46 years old Clinical indication: Other: Pain after coughing, left ribs.No history of trauma or recent surgery is provided. TECHNIQUE: Imaging protocol: Radiologic exam of the Left ribs. Views: 3 views. COMPARISON: No recent chest or rib radiograph is currently available. FINDINGS: Bones/joints: There is subtle dextrocurvature versus positioning of the thoracic spine. No fracture or dislocation is appreciated. Soft tissues: No radiopaque foreign body or subcutaneous emphysema is appreciated. IMPRESSION: Osseous alignment is maintained.No fracture or dislocation is appreciated. PROCEDURE INFORMATION: Exam: XR Chest Exam date and time: 02/05/2022 10:55 AM Age: 46 years old Clinical indication: Other: Pain after coughing, left ribs.No history of trauma or recent surgery is provided. TECHNIQUE: Imaging protocol: Radiologic exam of the chest. 5image(s) are provided. Views: 2 views. COMPARISON: No recent chest or rib radiograph is currently available. FINDINGS: Lungs: Unremarkable. No lobar consolidation is appreciated. Pleural spaces: Unremarkable. No pneumothorax or pleural effusion is appreciated. Heart/Mediastinum: There is some cardio diaphragmatic fat pad averaging demonstrated bilaterally with some minimal bandlike scarring at the lung bases likely postinflammatory related. The cardiomediastinal silhouette is normal. No cardiac decompensation is appreciated. Diaphragm: The hemidiaphragms are symmetric. Bones/joints: Unremarkable. No fracture or dislocation is appreciated. Soft tissues: No radiopaque foreign body or subcutaneous emphysema is appreciated. IMPRESSION: No lobar consolidation or cardiac decompensation is appreciated.No acute cardiopulmonary changes are appreciated. Dictated and Authenticated by: Enrique Esquivel MD. Ordering:MAURICIO Foreman MD
--- NOTE | 2022-02-05 11:29 | ED.GENADUL_ITS ---
Discharge Plan Disposition Patient Disposition: Home Condition: Stable Discharge Details Clinical Impression: Pleurisy, Bronchitis Primary Care Provider: Ayesha Mendiola ED Provider: Kellen Cifuentes Home Meds and New Rx's Prescriptions: New cefuroxime axetil 500 mg tablet 500 mg PO BID Qty: 10 0RF Continued Flovent Diskus 250 mcg/actuation blister with device 1 inh IH Q12H quetiapine [Seroquel] 50 mg tablet 50 mg PO DAILY atomoxetine [Strattera] 25 mg capsule 25 mg PO DAILY omeprazole 20 MG capsule,delayed release(DR/EC) 20 mg PO DAILY cetirizine 5 MG tablet,chewable 10 mg PO DAILY levalbuterol tartrate [Xopenex HFA] 15 GM HFA aerosol inhaler 45 mcg Inhalation QID albuterol sulfate [ProAir HFA] 8.5 GM HFA aerosol inhaler 2 puff Inhalation Q6H PRN Savella 50 mg tablet See Rx Instructions PO BID Rx Instructions: PO twice a day; acetaminophen [Tylenol] 325 MG tablet 650 mg PO Q6H PRN PRNQty: 30 0RF mirtazapine 7.5 mg tablet 7.5 mg PO HS Label Comments: TAKE ONE TABLET BY MOUTH AT BEDTIME hydroxyzine HCl 25 mg tablet 25 mg PO TID Qty: 30 0RF Discharge Instructions Instructions: Pleurisy (ED), Acute Bronchitis (ED) Additional Instructions: Take antibiotics as prescribed, continue use your inhaler Given you several doses of pain medication, take this only at night Return earlier should you have new or worsening complaints Referrals: Ayesha Mendiola [Primary Care Provider] - Discharge Data Discharge Date/Time-TO BE ENTERED AT DEPARTURE: 02/05/22 12:28 Medical Decision Making 46-year-old female with history of COPD coming in with left-sided pleuritic chest pain, after using PERC criteria, considered low risk for pulmonary embolism, specifically no hypoxia, significant tachycardia, or no respiratory distress, x-ray was ordered as patient has had persistent pain cough, upper respiratory symptoms, will assess for rib fracture versus pneumonia, other pulmonary pathology Did consider cardiac etiology, however patient's pain is largely pleuritic, positional, and considered low risk and less likely to be cardiac in nature based on my clinical assessment Chest x-ray does not show evidence of acute abnormality per radiology interpretation my review, pain is likely pleuritic in nature, however given this patient's cough, shortness of breath, will treat for bronchitis and COPD patient with doxycycline, prednisone, and albuterol Return precautions reviewed and patient expressed understanding, will discharge home in stable condition with stable vitals Sign Out No HPI General Date/Time Provider Initiated Documentation: 02/05/22 10:19 . HPI Narrative: This 46-year-old female presents with cough and cold symptoms for the past 2 week. She states that in the past 3 days she has developed some left rib pain. She states is worse with moving, breathing, and coughing. She denies any fever or chills. She states she feels short of breath secondary to pain. She has any history of coagulopathy. She denies any recent flights, surgeries, calf pain or swelling, long drives. She denies any chance of . She is taken several COVID test at home and all of which have been negative. Related Data Home Medications Medication Instructions Recorded Confirmed cetirizine 5 mg chewable tablet 10 mg PO DAILY 07/23/12 02/05/22 levalbuterol tartrate 45 45 mcg inhalation QID 07/23/12 02/05/22 mcg/actuation aerosol inhaler (Xopenex HFA) omeprazole 20 mg capsule,delayed 20 mg PO DAILY 07/23/12 02/05/22 release ProAir HFA 90 mcg/actuation 2 puff inhalation Q6H PRN 06/30/17 02/05/22 aerosol inhaler (albuterol sulfate) acetaminophen 325 mg tablet 650 mg PO Q6H PRN PRN #30 tabs 07/13/17 02/05/22 (Tylenol) fluticasone propionate 250 1 inh inhalation Q12H 01/01/18 02/05/22 mcg/actuation blister powder for inhalation (Flovent Diskus) mirtazapine 7.5 mg tablet 7.5 mg PO HS 05/06/20 02/05/22 Savella 50 mg tablet (milnacipran) See Rx Instructions PO BID 05/20/20 02/05/22 atomoxetine 25 mg capsule 25 mg PO DAILY 07/22/20 02/05/22 (Strattera) quetiapine 50 mg tablet (Seroquel) 50 mg PO DAILY 07/22/20 02/05/22 hydroxyzine HCl 25 mg tablet 25 mg PO TID #30 tabs 08/17/20 02/05/22 cefuroxime axetil 500 mg tablet 500 mg PO BID #10 tabs 02/05/22 Previous Rx's Medication Instructions Recorded acetaminophen 325 mg tablet 650 mg PO Q6H PRN PRN #30 tabs 07/13/17 (Tylenol) hydroxyzine HCl 25 mg tablet 25 mg PO TID #30 tabs 08/17/20 cefuroxime axetil 500 mg tablet 500 mg PO BID #10 tabs 02/05/22 Allergies Allergy/AdvReac Type Severity Reaction Status Date / Time erythromycin base Allergy Intermediate Skin Rash Verified 02/05/22 10:03 [Erythromycin Base] Penicillins Allergy Intermediate Skin Rash Verified 02/05/22 10:03 propoxyphene napsylate Allergy Intermediate Hives Verified 02/05/22 10:03 [From Darvocet-N 100] amoxicillin Allergy Unknown Skin Rash Verified 02/05/22 10:03 cyclobenzaprine Allergy unknown Verified 02/05/22 10:03 [From Flexeril] doxycycline Allergy rash, SOB, Verified 02/05/22 10:03 upset stomach nabumetone Allergy Skin Rash Verified 02/05/22 10:03 naproxen [From Aleve] Allergy Verified 02/05/22 10:03 oxaprozin Allergy unknown Verified 02/05/22 10:03 ranitidine HCl [From Zantac] Allergy unknown Verified 02/05/22 10:03 Sulfa (Sulfonamide Allergy Hives Verified 02/05/22 10:03 Antibiotics) codeine [Codeine] AdvReac Intermediate Upset Verified 02/05/22 10:03 stomach ibuprofen AdvReac Intermediate upset Verified 02/05/22 10:03 stomach General Stated Complaint: Chest/Rib KAYLYNN: 4 Review of Systems Narrative: Review of systems obtained x7 and negative aside from medication HPI PFSH All Active Problems (Updated 02/05/22 @ 11:42 by MICHAEL Montiel) Tick bite (Acute) Erythema migrans (Lyme disease) (Acute) Itching (Acute) Pleurisy (Acute) Bronchitis (Acute) Rotator cuff tear, right (Acute) Tenosynovitis (Chronic 07/01/13) Tear of right glenoid labrum (Acute) Instability of right shoulder joint (Acute) Tendonitis of long head of biceps brachii of right shoulder (Acute) Bursitis of right shoulder (Acute) Impingement syndrome of right shoulder (Acute) PTSD (post-traumatic stress disorder) (Chronic) Mood disorder (Chronic) Anxiety disorder (Chronic) Fibromyalgia (Chronic) Asthma, mild persistent (Chronic) Tobacco abuse (Chronic) Learning difficulty (Chronic) Genital herpes (Chronic) Abdominal pain (Chronic) since ? 2016. CT scan neg for GI etiology. Pelvic u/s normal. Back pain (Chronic) Medical History ADHD JULIEN II (cervical intraepithelial neoplasia II) Follicular cyst of ovary Lumbar back pain Mass of left thigh Myositis Vaginal discharge Varicose vein of leg Surgical History Excision, Lesion (07/13/17) left posterior thigh, benign vascular proliferation and mature fibroadipose tissue Hx of tubal ligation Social History Smoking/Tobacco Use Status: Current every day Tobacco Type: cigarettes Smoking risk assessment performed?: Yes Alcohol Intake: never Drug use: Never Substance use type: former substance user Current gender identity: female Seatbelt use: always Do you feel safe at home: Yes Do you feel safe in your relationship?: Yes Exam Const General: cooperative, comfortable and no acute distress Eyes Pupils: PERRL Resp Effort & Inspection: normal respiratory effort Auscultation: clear to auscultation bilaterally Cardio Rate: regular rate Rhythm: regular rhythm GI Other: No abdominal tenderness on exam, specifically no left upper quadrant tenderness or flank tenderness Skin Other: No rashes or lesions Neuro Other: alert and oriented x3 Extrem Other: No calf swelling or tenderness Course Vital Signs Vital signs: Vital Signs Temperature 36.8 C 02/05/22 09:59 Pulse 96 H 02/05/22 09:59 Respiratory Rate 16 02/05/22 09:59 Blood Pressure 181/97 H 02/05/22 09:59 Pulse Oximetry 97 02/05/22 09:59 Temperature 36.8 C 02/05/22 09:59 Temperature Source Temporal Artery Scan 02/05/22 09:59 Pulse 96 H 02/05/22 09:59 Respiratory Rate 16 02/05/22 09:59 Respiratory Effort 02/05/22 10:05 Respiratory Depth Normal 02/05/22 10:05 Respiratory Pattern Normal 02/05/22 10:05 Blood Pressure 181/97 H 02/05/22 09:59 Blood Pressure Position Sitting 02/05/22 09:59 Pulse Oximetry 97 02/05/22 09:59 Oxygen Delivery Method Room Air 02/05/22 09:59 Oxygen Flow Rate 0 02/05/22 09:59 Pain Level 9 02/05/22 10:05
== END 2022-02-05 12:28 | disposition home or self-care (01) ==
PROVIDERS: Emergency Provider Physician Assistant; PCP Nurse Practitioner Family
DX: J40 Bronchitis, not specified as acute or chronic (principal); R09.1 Pleurisy; J44.9 Chronic obstructive pulmonary disease, unspecified; Z79.51 Long term (current) use of inhaled steroids
CPT/HCPCS: 99283; 71046; 71100; 99284; J8540

== ENCOUNTER 2022-03-24 03:02 | Outpatient (CLI) | payer MEDICAID, SELFPAY ==
--- NOTE | 2022-03-24 | DI.RAD_ITS ---
Exam(s) XR KNEE RT 3V AP,LAT,RAVINDRA EXAM: XR KNEE RT 3V AP,LAT,RAVINDRA CLINICAL HISTORY: RT KNEE PAIN, M25.561,ACUTE, S/P SLIP/TRIP. TECHNIQUE: 2D digital imaging was performed. COMPARISON: No exams were available for comparison FINDINGS: 3 views No evidence of fracture or joint effusion. No degenerative changes. Bone density normal. No osseou s lesions. No osteochondral defects. IMPRESSION: No significant osseous findings. DATA REPOSITORY: RADIATION DOSE DELIVERED:
== END 2022-03-24 03:22 ==
LOC: DI 03:02
PROVIDERS: PCP Nurse Practitioner Family; Visit Provider Nurse Practitioner Family
DX: M25.561 Pain in right knee (principal)
CPT/HCPCS: 73562

== ENCOUNTER 2022-07-26 13:03 | Outpatient (REF) | payer MEDICAID, SELFPAY ==
[2022-07-26 18:02] LABS: Abs Immature Grans 0.04 10^3/uL (0.0-0.06); Absolute Basophil Count 0.09 10^3/uL (0.0-0.2); Absolute Eosinophil Count 0.19 10^3/uL (0.0-0.7); Absolute Lymphocyte Count 3.12 10^3/uL (1.2-3.4); Absolute Monocyte Count 0.57 10^3/uL (0.1-0.8); Basophils % 0.7; Eosinophils % 1.4; HCT 41.8 % (36.0-46.0); HGB 13.1 g/dL (11.2-15.7); Immature Grans % 0.3; Lymphocytes % 23.4; MCH 28.5 pg (27.0-33.0); MCHC 31.3 % (32.0-36.0); MCV 91 fL (80-95); Monocytes % 4.3; Neutrophils % 69.9; Platelet Count 394 10^3/uL (130-400); RBC 4.59 10^6/uL (3.93-5.22); RDW 15.3 % (11.7-14.6); RDW-SD 50.7 fL; WBC 13.34 10^3/uL (4.4-10.8)
[2022-07-26 18:08] LABS: Absolute Neutrophil Count 9.32 10^3/uL (1.2-6.7)
[2022-07-26 18:35] LABS: Hemoglobin A1C 5.8 % (<5.7)
[2022-07-26 18:43] LABS: ALT 20 U/L (14-59); AST 13 U/L (15-37); Albumin 3.1 g/dL (3.4-5.0); Alkaline Phosphatase 108 U/L (46-116); Anion Gap 9.5 mmol/L (3-11); BUN 14 mg/dL (7-18); Bilirubin, Total 0.1 mg/dL (0.2-1.0); CO2 26.5 mmol/L (21.0-32.0); CREATININE 0.9 mg/dL (0.55-1.02); Calcium 8.6 mg/dL (8.5-10.1); Calculated LDL 112 mg/dL (<100); Chloride 107 mmol/L (98-107); Cholesterol 178 mg/dL (<200); Estimated GFR 79.85 (mL/min/1.73m2); Glucose 139 mg/dL (74-106); HDL Cholesterol 27 mg/dL (40-60); Sodium 143 mmol/L (136-145); TSH (W/Ref FT4) 1.28 uIU/mL (0.36-3.74); Total Protein 6.6 g/dL (6.4-8.2); Triglyceride 197 mg/dL (<150)
== END 2022-07-26 13:04 | disposition home or self-care (01) ==
LOC: NCHCN 13:03
PROVIDERS: PCP Nurse Practitioner Family; Visit Provider Nurse Practitioner Family
DX: Z13.220 Encounter for screening for lipoid disorders (principal); J44.9 Chronic obstructive pulmonary disease, unspecified; G43.909 Migraine, unspecified, not intractable, without status migrainosus; B00.9 Herpesviral infection, unspecified; F39 Unspecified mood [affective] disorder
CPT/HCPCS: 80053; 80061; 83036; 84443; 85025

== ENCOUNTER 2022-09-29 02:42 | Outpatient (CLI) | payer MEDICAID, SELFPAY ==
--- NOTE | 2022-09-29 | DI.MAMMO_ITS ---
Exam(s) MAMMO SCREENING EXAM: MAMMO SCREENING CLINICAL HISTORY: SCREENING, Z12.39. TECHNIQUE: Bilateral full field digital CC and MLO mammographic images were obtained with 3D tomosyn thesis and utilizing computer aided detection (CAD). COMPARISON: Prior mammograms were reviewed. FINDINGS: There has been no significant change in the appearance and distribution of the fibroglandular tissue. There are no new findings in the left breast. Towards the lateral aspect of the right breast there is an asymmetric density-possible nodule now yordan dent which measures approximately 8 by 4 mm, approximately 6 cm in from the nipple on the CC view. N ot previously present in 2018 (there are no interval mammograms. Further imaging recommended There are no malignant-appearing microcalcification groups in this region or elsewhere in either [address]. There is no significant architectural distortion nor skin thickening-retraction. IMPRESSION: 1. No radiographic evidence of malignancy in the left breast. 2. Possible 8 x 4 mm nodule in the right breast. Spot compression CC view and right breast ultrasoun d recommended. BI-RADS Category 0 - Assessment Incomplete: Need additional imaging evaluation Breast Density - Category B - Scattered areas of fibroglandular density Breast density Category C or D implies that the patient has dense breast tissue. Dense breast tissue can make it harder to find cancer on a mammogram. Dense breast tissue is also associated with an incr eased risk of breast cancer. This information about the result of the mammogram report was provided to the patient to raise their awareness. Use this report when you speak with the patient about their risks for breast cancer, which includes their family history. At that time, you may recommend additional screening tests (Ultrasoun d or MRI) as these tests may add significant information. A negative radiographic report should not delay biopsy if a dominant or clinically suspicious mass is present. Up to ten percent of cancers are not identified on mammography. A negative report may reinforce clinical impression. Adenosis and dense breasts may obscure an underlying neoplasm. False positive reports average 6 to 10%. Patient will receive a letter notifying them of these results.
== END 2022-09-29 03:02 ==
LOC: DI 02:42
PROVIDERS: PCP Nurse Practitioner Family; Visit Provider Nurse Practitioner Family
DX: Z12.31 Encounter for screening mammogram for malignant neoplasm of breast (principal)
CPT/HCPCS: 77063; 77067

== ENCOUNTER 2022-10-03 00:47 | Outpatient (CLI) | payer MEDICAID, SELFPAY ==
--- NOTE | 2022-10-03 | DI.US_ITS ---
Exam(s) MG MAMMO SCREEN CALL BACK UNI US BREAST RT COMPLETE EXAM: MG MAMMO SCREEN CALL BACK UNI-RIGHT AND COMPLETE RIGHT BREAST ULTRASOUND CLINICAL HISTORY: F/U MAMMO, NODULE RT BREAST. TECHNIQUE: Unilateral spot mammographic images obtained with 3D tomosynthesisand utilizing computer aided detection (CAD). . Complete breast Ultrasound was also performed, including all 4 quadrants, the retroareolar region, a nd the ipsilateral axilla. COMPARISON: Prior mammograms were reviewed. This additional imaging was performed due to findings described on the recent screening mammogram of 09/29/2022. FINDINGS: DIAGNOSTIC MAMMOGRAM: Additional mammographic views performed todayrender this area less concerning. COMPLETE RIGHT BREAST ULTRASOUND: Ultrasound performed today reveals no evidence of solid or significant cystic findings in all 4 quadr ants.. Scanning of the ipsilateral axilla reveals no significant adenopathy. IMPRESSION: 1. No radiographic evidence of malignancy in the right breast. 2. Negative complete right breast ultrasound Appropriate follow-up is repeat right breast mammogram in 6 months. The patient was informed of these findings and recommendations self prior to leaving the department [facility]. BI-RADS Category 3 - 6 month - Probably Benign Finding: Recommend follow-up mammography in 6 months Breast Density - Category B - Scattered areas of fibroglandular density Breast density Category C or D implies that the patient has dense breast tissue. Dense breast tissue can make it harder to find cancer on a mammogram. Dense breast tissue is also associated with an incr eased risk of breast cancer. This information about the result of the mammogram report was provided to the patient to raise their awareness. Use this report when you speak with the patient about their risks for breast cancer, which includes their family history. At that time, you may recommend additional screening tests (Ultrasoun d or MRI) as these tests may add significant information. A negative radiographic report should not delay biopsy if a dominant or clinically suspicious mass is present. Up to ten percent of cancers are not identified on mammography. A negative report may reinforce clinical impression. Adenosis and dense breasts may obscure an underlying neoplasm. False positive reports average 6 to 10%. Patient will receive a letter notifying them of these results.
== END 2022-10-03 01:07 ==
LOC: DI 00:47
PROVIDERS: PCP Nurse Practitioner Family; Visit Provider Nurse Practitioner Family
DX: Z12.31 Encounter for screening mammogram for malignant neoplasm of breast (principal); R92.8 Other abnormal and inconclusive findings on diagnostic imaging of breast
CPT/HCPCS: 76642; 77063; 77067

== ENCOUNTER → 2023-04-06 02:19 | Outpatient (CLI) | payer MEDICAID, SELFPAY ==
--- NOTE | 2023-04-06 09:55 | DI.MAMMO_ITS ---
Exam(s) MAMMO DIAGNOSTIC UNI EXAM: MAMMO DIAGNOSTIC UNI-RIGHT CLINICAL HISTORY: RT BREAST NODULE, 6 MO F/U, F/U MAMMO,N63.0. TECHNIQUE: Both CC and MLO right breast mammographic images were obtained [facility] and utilizing computer aided detection (CAD). COMPARISON: Prior mammograms were reviewed, the most recent being September 2022. Ultrasound at that [facility] was also reviewed.. FINDINGS: The previously described nodular density on the prior mammogram is less evident on the present mammog hien, further evidence that it was benign. No new right breast mammographic findings on today's study. Do not feel that repeat ultrasound is required at this time. IMPRESSION: No radiographic evidence of malignancy in the right breast Appropriate follow-up is to keep this patient on her yearly mammogram schedule, this implying that he r next bilateral mammogram would be in September or October 2023.. The patient was informed of the findings and follow-up recommendations prior to leaving the [facility]. BI-RADS Category 2 - Benign Findings Breast Density - Category B - Scattered areas of fibroglandular density Breast density Category C or D implies that the patient has dense breast tissue. Dense breast tissue can make it harder to find cancer on a mammogram. Dense breast tissue is also associated with an incr eased risk of breast cancer. This information about the result of the mammogram report was provided to the patient to raise their awareness. Use this report when you speak with the patient about their risks for breast cancer, which includes their family history. At that time, you may recommend additional screening tests (Ultrasoun d or MRI) as these tests may add significant information. A negative radiographic report should not delay biopsy if a dominant or clinically suspicious mass is present. Up to ten percent of cancers are not identified on mammography. A negative report may reinforce clinical impression. Adenosis and dense breasts may obscure an underlying neoplasm. False positive reports average 6 to 10%. Patient will receive a letter notifying them of these results.
== END ==
PROVIDERS: PCP Nurse Practitioner Family; Visit Provider Nurse Practitioner Family
DX: Z12.31 Encounter for screening mammogram for malignant neoplasm of breast (principal)
CPT/HCPCS: 77061; 77065; G0279

== ENCOUNTER 2023-06-29 14:45 | Outpatient (REF) | payer MEDICAID, SELFPAY ==
[2023-06-29 19:29] LABS: ALT 28 U/L (14-59); AST 19 U/L (15-37); Albumin 3.1 g/dL (3.4-5.0); Alkaline Phosphatase 163 U/L (46-116); Anion Gap 9.6 mmol/L (3-11); BUN 8 mg/dL (7-18); Bilirubin, Total 0.4 mg/dL (0.2-1.0); CO2 28.4 mmol/L (21.0-32.0); CREATININE 0.9 mg/dL (0.55-1.02); Chloride 105 mmol/L (98-107); Estimated GFR 79.35 (mL/min/1.73m2); Glucose 96 mg/dL (74-106); Potassium 3.8 mmol/L (3.5-5.1); Sodium 143 mmol/L (136-145); Total Protein 6.7 g/dL (6.4-8.2)
[2023-06-29 19:36] LABS: Calcium 8.8 mg/dL (8.5-10.1)
[2023-06-29 20:58] LABS: Calculated LDL 133 mg/dL (<100); Cholesterol 207 mg/dL (<200); HDL Cholesterol 41 mg/dL (40-60); Triglyceride 168 mg/dL (<150)
== END 2023-06-29 14:46 | disposition home or self-care (01) ==
LOC: NCHCN 14:45
PROVIDERS: PCP Nurse Practitioner Family; Visit Provider Nurse Practitioner Family
DX: R73.03 Prediabetes (principal); E78.5 Hyperlipidemia, unspecified; F41.8 Other specified anxiety disorders; F39 Unspecified mood [affective] disorder
CPT/HCPCS: 80053; 80061; 83036; 84443

== ENCOUNTER 2023-08-20 13:50 | Emergency (ER) | payer MEDICAID, SELFPAY ==
[2023-08-20 14:13] VITALS: BP 134/97; PULSE 109; RESP 18; TEMP 37.1; O2SAT 97
--- NOTE | 2023-08-20 15:45 | DI.RAD_ITS ---
Exam(s) XR CHEST 2V PA LATERAL EXAM: XR CHEST 2V PA LATERAL CLINICAL HISTORY: sob ,leg swelling TECHNIQUE: 2D digital imaging was performed. Two views. COMPARISON: CR,XR XR RIBS LT W PA LAT CHEST from 02/05/2022 FINDINGS: HEART: Normal size. Aorta: Not dilated. PULMONARY VASCULATURE: Normal. LUNGS: Clear. PLEURAL SPACE: No pleural effusion or pneumothorax. BONE:Unremarkable for age. Soft tissues: Unremarkable. IMPRESSION: No acute abnormality. DATA REPOSITORY: RADIATION DOSE DELIVERED:
--- NOTE | 2023-08-20 15:45 | RT.EKG_ITS ---
APPROVED REPORT Exam: Resting ECG Reason for Exam: leg swelling Patient Location: E HR:100 bpm ECG Measurements Heart Rate 100 AXIS AL 154 P 51 QRSd 77 QRS -12 QT 372 T 22 QTc 476 Conclusion Sinus rhythm...normal P axis, V-rate 60- 99 Probable left atrial enlargement...P >50mS, <-0.10mV V1 Narrow complex sinus tachycardia at a rate of 100. Left axis deviation no signs of LVH. Intervals w ithin normal limits. No ST segment abnormalities. No acute injury pattern. Appears similar to chris landis
--- NOTE | 2023-08-20 15:50 | ED.GENADUL_ITS ---
Discharge Plan Disposition Patient Disposition: Home Condition: Improving Discharge Details Chief Complaint: GenMedical Clinical Impression: Hypernatremia, Hypokalemia Primary Care Provider: KANDICE SPRINGER ED Provider: Mati Santillan Home Meds and New Rx's Prescriptions: No Action fluticasone propionate [Flovent Diskus] 250 mcg/actuation blister with device 1 inh IH Q12H quetiapine [Seroquel] 50 mg tablet 50 mg PO DAILY atomoxetine [Strattera] 25 mg capsule 25 mg PO DAILY omeprazole 20 MG capsule,delayed release(DR/EC) 20 mg PO DAILY cetirizine 5 MG tablet,chewable 10 mg PO DAILY levalbuterol tartrate [Xopenex HFA] 15 GM HFA aerosol inhaler 45 mcg Inhalation QID albuterol sulfate [ProAir HFA] 8.5 GM HFA aerosol inhaler 2 puff Inhalation Q6H PRN Savella 50 mg tablet 25 mg PO DAILY Patient Comments: take in morning acetaminophen [Tylenol] 325 MG tablet 650 mg PO Q6H PRN PRNQty: 30 0RF valacyclovir 500 mg tablet 500 mg PO BID PRN Patient Comments: TAKE ONE TABLET BY MOUTH TWICE A DAY FOR 3 DAYS FOR EACH RECURRENCE mirtazapine 7.5 mg tablet 7.5 mg PO HS Patient Comments: TAKE ONE TABLET BY MOUTH AT BEDTIME Discharge Instructions Additional Instructions: Please follow-up with your primary care physician. Consider reducing your intake of processed meats and increase your intake of fruits and vegetables. HPI General Date/Time Provider Initiated Documentation: 08/20/23 15:17 . HPI Narrative: 47-year-old female presents with bilateral feet and ankle swelling over the last couple of days, denies chest pain or shortness of breath, denies history of coronary disease or thromboembolic disease. Related Data Home Medications Medication Instructions Recorded Confirmed cetirizine 5 mg chewable tablet 10 mg PO DAILY 07/23/12 08/20/23 levalbuterol tartrate 45 45 mcg inhalation QID 07/23/12 08/20/23 mcg/actuation aerosol inhaler (Xopenex HFA) omeprazole 20 mg capsule,delayed 20 mg PO DAILY 07/23/12 08/20/23 release ProAir HFA 90 mcg/actuation 2 puff inhalation Q6H PRN 06/30/17 08/20/23 aerosol inhaler (albuterol sulfate) acetaminophen 325 mg tablet 650 mg (2 x 325 mg) PO Q6H PRN PRN 07/13/17 08/20/23 (Tylenol) #30 tabs fluticasone propionate 250 1 inh inhalation Q12H 01/01/18 08/20/23 mcg/actuation blister powder for inhalation (Flovent Diskus) mirtazapine 7.5 mg tablet 7.5 mg PO HS 05/06/20 08/20/23 Savella 50 mg tablet (milnacipran) 25 mg PO DAILY 05/20/20 08/20/23 atomoxetine 25 mg capsule 25 mg PO DAILY 07/22/20 08/20/23 (Strattera) quetiapine 50 mg tablet (Seroquel) 50 mg PO DAILY 07/22/20 08/20/23 valacyclovir 500 mg tablet 500 mg PO BID PRN 08/20/23 08/20/23 Previous Rx's Medication Instructions Recorded acetaminophen 325 mg tablet 650 mg (2 x 325 mg) PO Q6H PRN PRN 07/13/17 (Tylenol) #30 tabs Allergies Allergy/AdvReac Type Severity Reaction Status Date / Time erythromycin base Allergy Intermediate Skin Rash Verified 08/20/23 14:17 [Erythromycin Base] Penicillins Allergy Intermediate Skin Rash Verified 08/20/23 14:17 propoxyphene napsylate Allergy Intermediate Hives Verified 08/20/23 14:17 [From Darvocet-N 100] amoxicillin Allergy Unknown Skin Rash Verified 08/20/23 14:17 naproxen [From Aleve] Allergy Unknown Other (See Verified 08/20/23 14:17 Comment) cyclobenzaprine Allergy unknown Verified 08/20/23 14:17 [From Flexeril] doxycycline Allergy rash, SOB, Verified 08/20/23 14:17 upset stomach nabumetone Allergy Skin Rash Verified 08/20/23 14:17 oxaprozin Allergy unknown Verified 08/20/23 14:17 ranitidine HCl [From Zantac] Allergy unknown Verified 08/20/23 14:17 Sulfa (Sulfonamide Allergy Hives Verified 08/20/23 14:17 Antibiotics) codeine [Codeine] AdvReac Intermediate Upset Verified 02/05/22 10:03 stomach ibuprofen AdvReac Intermediate upset Verified 08/20/23 14:17 stomach General Stated Complaint: GenMedical KAYLYNN: 3 Review of Systems Narrative: Review of Systems Constitutional: negative Eyes: negative ENT: negative Cardiovascular: Feet and ankle swelling Respiratory: negative Gastrointestinal: negative : negative Musculoskeletal: negative Skin: negative Neurologic: negative Psych: negative Exam Narrative Exam Narrative: Physical Examination General: alert, awake, cooperative, resting comfortably, no acute distress HEENT: normocephalic, atraumatic; PERRL, EOM intact, conjunctiva normal; no nasal discharge; moist mucous membranes, oral and pharyngeal mucosa normal, tolerating secretions Neck: supple, trachea midline; full ROM Chest: normal to inspection Respiratory: normal respiratory effort, speaking in full sentences, clear to auscultation, no wheezing, rales or rhonchi Cardiac: regular rate, regular rhythm, S1S2 intact, no murmurs rubs or gallops GI: abdomen soft, non-tender, non-distended; no palpable mass or hepatosplenomegaly Skin: no lesions, rashes or trauma appreciated Neuro: AAOx3, normal speech, moving all extremities Extremities: Mild edema to bilateral feet and ankles Psych: Appropriate mood and affect Course Vital Signs Vital signs: Vital Signs Temperature 37.1 C 08/20/23 14:13 Pulse 109 H 08/20/23 14:13 Respiratory Rate 18 08/20/23 14:13 Blood Pressure 134/97 H 08/20/23 14:13 Pulse Oximetry 97 08/20/23 14:13 Temperature 37.1 C 08/20/23 14:13 Temperature Source Temporal Artery Scan 08/20/23 14:13 Pulse 109 H 08/20/23 14:13 Respiratory Rate 18 08/20/23 14:13 Blood Pressure 134/97 H 08/20/23 14:13 Blood Pressure Position Sitting 08/20/23 14:13 Pulse Oximetry 97 08/20/23 14:13 Medical Decision Making 47-year-old female presents with mild edema to feet and ankles bilaterally over the last several days denies chest pain or shortness of breath, no history of thromboembolic disease coronary disease or CHF. Alert oriented interactive no respiratory distress not hypoxic not tachypneic. Consider heat related vasodilation versus poor lymphatic drainage versus must consider atypical ACS and new CHF lower suspicion for PE or DVT no evidence of infection. Will obtain basic labs troponin BNP chest x-ray screening EKG dose of Lasix close reassessment likely home with close follow-up pending results 18: 05 evidence of hyponatremia and hypokalemia, patient endorses eating a significant amount of cured meat recently, likely contributing to her salt level and water retention. Responded well to Lasix, given p.o. potassium. No evidence of ACS. Patient given home care instructions and return precautions Quality:SDOH Health Related Social Needs: No Data to Display PFSH All Active Problems (Updated 08/20/23 @ 18:13 by Mati Santillan MD) Hypokalemia (Acute) Hypernatremia (Acute) Itching (Acute) Erythema migrans (Lyme disease) (Acute) Tick bite (Acute) Rotator cuff tear, right (Acute) Tenosynovitis (Chronic 07/01/13) Tear of right glenoid labrum (Acute) Instability of right shoulder joint (Acute) Tendonitis of long head of biceps brachii of right shoulder (Acute) Bursitis of right shoulder (Acute) Impingement syndrome of right shoulder (Acute) PTSD (post-traumatic stress disorder) (Chronic) Mood disorder (Chronic) Anxiety disorder (Chronic) Fibromyalgia (Chronic) Asthma, mild persistent (Chronic) Tobacco abuse (Chronic) Learning difficulty (Chronic) Genital herpes (Chronic) Abdominal pain (Chronic) since ? 2016. CT scan neg for GI etiology. Pelvic u/s normal. Back pain (Chronic) Medical History ADHD JULIEN II (cervical intraepithelial neoplasia II) Follicular cyst of ovary Lumbar back pain Mass of left thigh Myositis Vaginal discharge Varicose vein of leg Surgical History Excision, Lesion (07/13/17) left posterior thigh, benign vascular proliferation and mature fibroadipose tissue Hx of tubal ligation Social History Smoking/Tobacco Use Status: Current every day Tobacco Type: cigarettes Smoking risk assessment performed?: Yes Alcohol Intake: never Drug use: Never Substance use type: former substance user Current gender identity: female Seatbelt use: always Do you feel safe at home: Yes Do you feel safe in your relationship?: Yes
[2023-08-20 16:14] LABS: Abs Immature Grans 0.05 10^3/uL (0.0-0.06); Absolute Basophil Count 0.07 10^3/uL (0.0-0.2); Absolute Eosinophil Count 0.18 10^3/uL (0.0-0.7); Absolute Monocyte Count 0.54 10^3/uL (0.1-0.8); Basophils % 0.6 %; Eosinophils % 1.5 %; HCT 43.4 % (36.0-46.0); Immature Grans % 0.4 %; Lymphocytes % 22.9 %; MCH 29.2 pg (27.0-33.0); MCHC 32.3 % (32.0-36.0); MCV 90 fL (80-95); MPV 8.3 fL (8.0-11.0); Monocytes % 4.4 %; Neutrophils % 70.2 %; Platelet Count 382 10^3/uL (130-400); RDW 16.6 % (11.7-14.6); RDW-SD 55.2 fL; WBC 12.16 10^3/uL (4.4-10.8)
[2023-08-20 16:15] LABS: Absolute Lymphocyte Count 2.78 10^3/uL (1.2-3.4); Absolute Neutrophil Count 8.54 10^3/uL (1.2-6.7)
[2023-08-20 16:28] LABS: PTT Activated 28.6 sec (23.6-32.8); Prothrombin Time 10.4 sec (9.1-11.1)
[2023-08-20 16:37] LABS: ALT 26 U/L (14-59); AST 11 U/L (15-37); Albumin 3.2 g/dL (3.4-5.0); Alkaline Phosphatase 123 U/L (46-116); Anion Gap 10.3 mmol/L (3-11); BUN 4 mg/dL (7-18); Bilirubin, Total 0.3 mg/dL (0.2-1.0); CO2 28.7 mmol/L (21.0-32.0); CREATININE 0.9 mg/dL (0.55-1.02); Calcium 8.7 mg/dL (8.5-10.1); Chloride 108 mmol/L (98-107); Estimated GFR 79.35 (mL/min/1.73m2); Glucose 91 mg/dL (74-106); NT-proBNP 235 pg/mL (<300); Sodium 147 mmol/L (136-145); Total Protein 7.6 g/dL (6.4-8.2); Troponin I < 50 ng/L (< or =60)
[2023-08-20 16:41] LABS: Potassium 2.9 mmol/L (3.5-5.1)
[2023-08-20] MEDS: Potassium Chloride 20 MEQ TABCR PO (18:06)
[2023-08-20 18:07] VITALS: PULSE 78; RESP 16; O2SAT 100
--- NOTE | 2023-08-20 18:09 | DI.VRAD_ITS ---
PROCEDURE INFORMATION: Exam: XR Chest Exam date and time: 08/20/2023 4:21 PM Age: 47 years old Clinical indication: Other: SOB, leg swelling TECHNIQUE: Imaging protocol: Radiologic exam of the chest. Views: 2 views. COMPARISON: CR XR RIBS LT W PA LAT CHEST 02/05/2022 10:55 AM FINDINGS: Lungs: Mild right lower lobe atelectasis. No definite consolidation. Pleural spaces: Unremarkable. No pleural effusion. No pneumothorax. Heart/Mediastinum: Heart size upper limits of normal. Bones/joints: Unremarkable. IMPRESSION: Mild right lower lobe atelectasis. Dictated and Authenticated by: Shani Daigle MD. Ordering:DEZ Thorne MD
== END 2023-08-20 18:17 | disposition home or self-care (01) ==
PROVIDERS: Emergency Provider Emergency Medicine; PCP Nurse Practitioner Family
DX: R22.43 Localized swelling, mass and lump, lower limb, bilateral (principal); E87.6 Hypokalemia; E87.0 Hyperosmolality and hypernatremia
CPT/HCPCS: 80053; 93005; 99283; 71046; 83880; 84484; 85025; 85610; 85730; 93010

== ENCOUNTER 2023-09-09 09:06 | Emergency (ER) | payer MEDICAID, SELFPAY ==
[2023-09-09 09:10] VITALS: BP 188/130; PULSE 113; RESP 18; TEMP 35.9; O2SAT 94
--- NOTE | 2023-09-09 09:15 | DI.RAD_ITS ---
Exam(s) XR WRIST LT COMPLETE EXAM: XR WRIST LT COMPLETE CLINICAL HISTORY: pain, unknown injury. TECHNIQUE: 2D digital imaging was performed. COMPARISON: No exams were available for comparison FINDINGS: 3 views No evidence of acute fracture or dislocation nor significant ulnar variance. Bone density normal. N o osseous lesions. Scaphoid and scapholunate distance are normal. IMPRESSION: No acute osseous findings in the wrist. DATA REPOSITORY: RADIATION DOSE DELIVERED:
--- NOTE | 2023-09-09 10:05 | DI.VRAD_ITS ---
PROCEDURE INFORMATION: Exam: XR Left Wrist Exam date and time: 09/09/2023 9:48 AM Age: 47 years old Clinical indication: Pain; Wrist; Left TECHNIQUE: Imaging protocol: Radiologic exam of the left wrist. Views: 3 or more views. COMPARISON: MR UPPER EXTREMITIES^ADULT 01/02/2020 2:45 PM FINDINGS: Bones/joints: The bones are well mineralized. The joint spaces are preserved. Examination negative for fracture or dislocation. Soft tissues: Unremarkable. IMPRESSION: No acute findings. Dictated and Authenticated by: Francisco Vazquez MD. Ordering:MAURICIO Foreman MD
[2023-09-09 10:14] LABS: Abs Immature Grans 0.08 10^3/uL (0.0-0.06); Absolute Eosinophil Count 0.22 10^3/uL (0.0-0.7); Absolute Lymphocyte Count 3.17 10^3/uL (1.2-3.4); Absolute Monocyte Count 0.62 10^3/uL (0.1-0.8); Basophils % 0.6 %; Eosinophils % 1.5 %; HCT 42.9 % (36.0-46.0); HGB 13.8 g/dL (11.2-15.7); Immature Grans % 0.6 %; MCHC 32.2 % (32.0-36.0); MCV 93 fL (80-95); MPV 8.6 fL (8.0-11.0); Monocytes % 4.3 %; Platelet Count 328 10^3/uL (130-400); RDW 17.2 % (11.7-14.6); RDW-SD 58.5 fL; WBC 14.41 10^3/uL (4.4-10.8)
[2023-09-09 10:16] LABS: Absolute Basophil Count 0.09 10^3/uL (0.0-0.2); Absolute Neutrophil Count 10.23 10^3/uL (1.2-6.7); ESR 14 mm/hr (0-20)
[2023-09-09 10:27] LABS: ALT 21 U/L (14-59); AST 12 U/L (15-37); Albumin 2.8 g/dL (3.4-5.0); Alkaline Phosphatase 113 U/L (46-116); Anion Gap 8.7 mmol/L (3-11); BUN 10 mg/dL (7-18); Bilirubin, Total 0.55 mg/dL (0.2-1.0); C-Reactive Protein 2.38 mg/dL (<or=0.5); CO2 28.3 mmol/L (21.0-32.0); CREATININE 0.9 mg/dL (0.55-1.02); Calcium 8.8 mg/dL (8.5-10.1); Chloride 107 mmol/L (98-107); Estimated GFR 79.35 (mL/min/1.73m2); Glucose 105 mg/dL (74-106); Potassium 3.7 mmol/L (3.5-5.1); Sodium 144 mmol/L (136-145); Total Protein 7.4 g/dL (6.4-8.2)
[2023-09-09 10:34] VITALS: BP 155/92; PULSE 88; RESP 18; O2SAT 96
[2023-09-09] MEDS: predniSONE 20 MG TAB 40 MG PO (10:38)
--- NOTE | 2023-09-09 10:42 | W.ED.GENAD ---
Discharge Plan Disposition Patient Disposition: Home Condition: Stable Discharge Details Clinical Impression: Acute pain of left wrist Primary Care Provider: KANDICE SPRINGER ED Provider: Kellen Cifuentes Home Meds and New Rx's Prescriptions: New prednisone 20 mg tablet 40 mg PO ONCE Qty: 10 0RF Continued fluticasone propionate [Flovent Diskus] 250 mcg/actuation blister with device 1 inh IH Q12H quetiapine [Seroquel] 50 mg tablet 50 mg PO DAILY atomoxetine [Strattera] 25 mg capsule 25 mg PO DAILY omeprazole 20 MG capsule,delayed release(DR/EC) 20 mg PO DAILY cetirizine 5 MG tablet,chewable 10 mg PO DAILY levalbuterol tartrate [Xopenex HFA] 15 GM HFA aerosol inhaler 45 mcg Inhalation QID albuterol sulfate [ProAir HFA] 8.5 GM HFA aerosol inhaler 2 puff Inhalation Q6H PRN Savella 50 mg tablet 25 mg PO DAILY Patient Comments: take in morning acetaminophen [Tylenol] 325 MG tablet 650 mg PO Q6H PRN PRNQty: 30 0RF valacyclovir 500 mg tablet 500 mg PO BID PRN Patient Comments: TAKE ONE TABLET BY MOUTH TWICE A DAY FOR 3 DAYS FOR EACH RECURRENCE mirtazapine 7.5 mg tablet 7.5 mg PO HS Patient Comments: TAKE ONE TABLET BY MOUTH AT BEDTIME Discharge Instructions Instructions: Joint Pain Additional Instructions: Take the prednisone as prescribed Use your splint for the next several days take Tylenol 650 every 4 hours Recheck with your doctor on Monday and return should you develop spreading redness, fever, worsening pain Referrals: KANDICE SPRINGER, [employer] [Primary Care Provider] - 2 days Discharge Data Discharge Date/Time-TO BE ENTERED AT DEPARTURE: 09/09/23 10:41 HPI General Date/Time Provider Initiated Documentation: 09/09/23 09:16. HPI Narrative: 47-year-old female presents with left wrist pain which started 48 hours prior to arrival. Secondary to worsening pain today she presents. Denies known trauma. [id number]. Denies any chance of . Denies any illicit drug use. Denies fever or chills. Pain exacerbated with movement of wrist. Related Data Home Medications Medication Instructions Recorded Confirmed cetirizine 5 mg chewable tablet 10 mg PO DAILY 07/23/12 09/09/23 levalbuterol tartrate 45 45 mcg inhalation QID 07/23/12 09/09/23 mcg/actuation aerosol inhaler (Xopenex HFA) omeprazole 20 mg capsule,delayed 20 mg PO DAILY 07/23/12 09/09/23 release ProAir HFA 90 mcg/actuation 2 puff inhalation Q6H PRN 06/30/17 09/09/23 aerosol inhaler (albuterol sulfate) acetaminophen 325 mg tablet 650 mg (2 x 325 mg) PO Q6H PRN PRN 07/13/17 09/09/23 (Tylenol) #30 tabs fluticasone propionate 250 1 inh inhalation Q12H 01/01/18 09/09/23 mcg/actuation blister powder for inhalation (Flovent Diskus) mirtazapine 7.5 mg tablet 7.5 mg PO HS 05/06/20 09/09/23 Savella 50 mg tablet (milnacipran) 25 mg PO DAILY 05/20/20 09/09/23 atomoxetine 25 mg capsule 25 mg PO DAILY 07/22/20 09/09/23 (Strattera) quetiapine 50 mg tablet (Seroquel) 50 mg PO DAILY 07/22/20 09/09/23 valacyclovir 500 mg tablet 500 mg PO BID PRN 08/20/23 09/09/23 prednisone 20 mg tablet 40 mg (2 x 20 mg) PO ONCE #10 tabs 09/09/23 Previous Rx's Medication Instructions Recorded acetaminophen 325 mg tablet 650 mg (2 x 325 mg) PO Q6H PRN PRN 07/13/17 (Tylenol) #30 tabs prednisone 20 mg tablet 40 mg (2 x 20 mg) PO ONCE #10 tabs 09/09/23 Allergies Allergy/AdvReac Type Severity Reaction Status Date / Time erythromycin base Allergy Intermediate Skin Rash Verified 09/09/23 09:11 [Erythromycin Base] Penicillins Allergy Intermediate Skin Rash Verified 09/09/23 09:11 propoxyphene napsylate Allergy Intermediate Hives Verified 09/09/23 09:11 [From Darvocet-N 100] amoxicillin Allergy Unknown Skin Rash Verified 09/09/23 09:11 naproxen [From Aleve] Allergy Unknown Other (See Verified 09/09/23 09:11 Comment) cyclobenzaprine Allergy unknown Verified 09/09/23 09:11 [From Flexeril] doxycycline Allergy rash, SOB, Verified 09/09/23 09:11 upset stomach nabumetone Allergy Skin Rash Verified 09/09/23 09:11 oxaprozin Allergy unknown Verified 09/09/23 09:11 ranitidine HCl [From Zantac] Allergy unknown Verified 09/09/23 09:11 Sulfa (Sulfonamide Allergy Hives Verified 09/09/23 09:11 Antibiotics) codeine [Codeine] AdvReac Intermediate Upset Verified 09/09/23 09:11 stomach ibuprofen AdvReac Intermediate upset Verified 09/09/23 09:11 stomach General Stated Complaint: Orthopedic KAYLYNN: 4 Exam Narrative Exam Narrative: Tenderness to left wrist predominantly along ulnar aspect, no redness or obvious swelling, neurovascularly intact, no tenderness to forearm Course Vital Signs Vital signs: Vital Signs Temperature 35.9 C L 09/09/23 09:10 Pulse 113 H 09/09/23 09:10 Respiratory Rate 18 09/09/23 09:10 Blood Pressure 188/130 H 09/09/23 09:10 Pulse Oximetry 94 09/09/23 09:10 Temperature 35.9 C L 09/09/23 09:10 Temperature Source Skin 09/09/23 09:10 Pulse 88 09/09/23 10:34 Respiratory Rate 18 09/09/23 10:34 Respiratory Effort Normal, Non-Labored 09/09/23 10:34 Respiratory Depth Normal 09/09/23 10:34 Respiratory Pattern Normal 09/09/23 10:34 Blood Pressure 155/92 H 09/09/23 10:34 Blood Pressure Mean 113 09/09/23 10:34 Blood Pressure Position Sitting 09/09/23 10:34 Pulse Oximetry 96 09/09/23 10:34 Oxygen Delivery Method Room Air 09/09/23 10:34 Oxygen Flow Rate 0 09/09/23 10:34 Pain Level 7 09/09/23 09:10 Lab/Test Results Lab/Test Results: Laboratory Tests Range/Units 09/09/23 10:06 WBC (4.4-10.8) 10^3/uL 14.41 H RBC (3.93-5.22) 10^6/uL 4.60 Hgb (11.2-15.7) g/dL 13.8 Hct (36.0-46.0) % 42.9 MCV (80-95) fL 93 MCH (27.0-33.0) pg 30.0 MCHC (32.0-36.0) % 32.2 RDW (11.7-14.6) % 17.2 H Plt Count (130-400) 10^3/uL 328 MPV (8.0-11.0) fL 8.6 Immature Gran % % 0.6 Neutrophils % % 71.0 Lymphocytes % % 22.0 Monocytes % % 4.3 Eosinophils % % 1.5 Basophils % % 0.6 Nucleated RBC % (0.0-0.3) % 0.0 Absolute Neutrophils (1.2-6.7) 10^3/uL 10.23 H Absolute Lymphocytes (1.2-3.4) 10^3/uL 3.17 Absolute Monocytes (0.1-0.8) 10^3/uL 0.62 Absolute Eosinophils (0.0-0.7) 10^3/uL 0.22 Absolute Basophils (0.0-0.2) 10^3/uL 0.09 ESR (0-20) mm/hr 14 Sodium (136-145) mmol/L 144 Potassium (3.5-5.1) mmol/L 3.7 Chloride (98-107) mmol/L 107 Carbon Dioxide (21.0-32.0) mmol/L 28.3 Anion Gap (3-11) mmol/L 8.7 BUN (7-18) mg/dL 10 Creatinine (0.55-1.02) mg/dL 0.9 Est GFR (CKD-EPI 2020) (mL/min/1.73m2) 79.35 Glucose (74-106) mg/dL 105 Calcium (8.5-10.1) mg/dL 8.8 Total Bilirubin (0.2-1.0) mg/dL 0.55 AST (15-37) U/L 12 L ALT (14-59) U/L 21 Alkaline Phosphatase (46-116) U/L 113 C-Reactive Protein (<or=0.5) mg/dL 2.38 H Total Protein (6.4-8.2) g/dL 7.4 Albumin (3.4-5.0) g/dL 2.8 L Medical Decision Making 47-year-old female who presents with left wrist pain. No swelling, no redness. Leukocytosis 14,000 although no obvious evidence of septic joint clinically, no redness or significant swelling. CRP 2.38 ESR within normal limits. X-ray per radiology interpretation my review does not show evidence of acute abnormality. Placed in a wrist splint and started on prednisone. Recheck in 24 to 48 hours recommended. Return precautions in terms of infection reviewed. Quality:SDOH Health Related Social Needs: No Data to Display PFSH All Active Problems (Updated 09/09/23 @ 10:35 by MICHAEL Montiel) Acute pain of left wrist (Acute) Hypokalemia (Acute) Hypernatremia (Acute) Itching (Acute) Erythema migrans (Lyme disease) (Acute) Tick bite (Acute) Rotator cuff tear, right (Acute) Tenosynovitis (Chronic 07/01/13) Tear of right glenoid labrum (Acute) Instability of right shoulder joint (Acute) Tendonitis of long head of biceps brachii of right shoulder (Acute) Bursitis of right shoulder (Acute) Impingement syndrome of right shoulder (Acute) PTSD (post-traumatic stress disorder) (Chronic) Mood disorder (Chronic) Anxiety disorder (Chronic) Fibromyalgia (Chronic) Asthma, mild persistent (Chronic) Tobacco abuse (Chronic) Learning difficulty (Chronic) Genital herpes (Chronic) Abdominal pain (Chronic) since ? 2016. CT scan neg for GI etiology. Pelvic u/s normal. Back pain (Chronic) Medical History ADHD JULIEN II (cervical intraepithelial neoplasia II) Follicular cyst of ovary Lumbar back pain Mass of left thigh Myositis Vaginal discharge Varicose vein of leg Surgical History Excision, Lesion (07/13/17) left posterior thigh, benign vascular proliferation and mature fibroadipose tissue Hx of tubal ligation Social History Smoking/Tobacco Use Status: Current every day Tobacco Type: cigarettes Smoking risk assessment performed?: Yes Alcohol Intake: never Drug use: Never Substance use type: former substance user Housing: apartment Current gender identity: female Seatbelt use: always Do you feel safe at home: Yes Do you feel safe in your relationship?: Yes
[2023-09-11 12:47] LABS: Lyme Ab w Rflx to Lyme Confirm Negative (Negative)
[2023-09-12 21:16] LABS: Anaplasma phagocytophilum Negative (Negative); B. miyamotoi PCR Negative (Negative); Babesia divergens/MO-1 Negative (Negative); Babesia duncani Negative (Negative); Babesia microti Negative (Negative); Ehrlichia chaffeensis Negative (Negative); Ehrlichia ewingii/canis Negative (Negative); Ehrlichia muris eauclairensis Negative (Negative)
== END 2023-09-09 10:41 | disposition home or self-care (01) ==
PROVIDERS: Emergency Provider Physician Assistant; PCP Nurse Practitioner Family
DX: M25.532 Pain in left wrist (principal)
CPT/HCPCS: 36415; 80053; 85652; 87798; 99283; 73110; 85025; 86140; 86618; J7512

== ENCOUNTER 2023-10-10 12:07 | Emergency (ER) | payer MEDICAID, SELFPAY ==
[2023-10-10 12:11] VITALS: BP 165/98; PULSE 116; RESP 18; TEMP 36.1; O2SAT 96
--- NOTE | 2023-10-10 12:30 | ED.GENADUL_ITS ---
Discharge Plan Disposition Patient Disposition: Home Condition: Stable Discharge Details Clinical Impression: Contusion of lower leg, right, Right ankle sprain Primary Care Provider: KANDICE SPRINGER ED Provider: Beth Blanton Home Meds and New Rx's Prescriptions: Continued fluticasone propionate [Flovent Diskus] 250 mcg/actuation blister with device 1 inh IH Q12H quetiapine [Seroquel] 50 mg tablet 50 mg PO DAILY omeprazole 20 MG capsule,delayed release(DR/EC) 20 mg PO DAILY levalbuterol tartrate [Xopenex HFA] 15 GM HFA aerosol inhaler 45 mcg Inhalation QID albuterol sulfate [ProAir HFA] 8.5 GM HFA aerosol inhaler 2 puff Inhalation Q6H PRN acetaminophen [Tylenol] 325 MG tablet 650 mg PO Q6H PRN PRNQty: 30 0RF valacyclovir 500 mg tablet 500 mg PO BID PRN Patient Comments: TAKE ONE TABLET BY MOUTH TWICE A DAY FOR 3 DAYS FOR EACH RECURRENCE mirtazapine 7.5 mg tablet 7.5 mg PO HS Patient Comments: TAKE ONE TABLET BY MOUTH AT BEDTIME No Action cetirizine 5 MG tablet,chewable 10 mg PO DAILY Savella 50 mg tablet 25 mg PO DAILY Patient Comments: take in morning Discharge Instructions Instructions: Taking care of bruises, Using Cold for Pain, Foot Sprain ED Additional Instructions: At this time no evidence of fracture or bony abnormality or broken bones at this time. You have a small heel spur which is probably been there for a long time and may cause a little bit of pain. The discoloration in your foot and ankle is most likely due to small hematoma or contusion underneath the skin and gravity is having the blood pool or drain down into your foot. This is a normal healing process. Rest, ice, compression elevation. Use the walking boot as needed when having to be on her feet. Elevate above the level of your heart when sitting or lying down. Follow up with primary care provider in 3-5 days if no improvement. Return to ED sooner if any worsening or concerns. Referrals: KANDICE SPRINGER, [employer] [Primary Care Provider] - 1 week Discharge Data Discharge Date/Time-TO BE ENTERED AT DEPARTURE: 10/10/23 13:15 HPI General Mode of arrival: ambulatory . Date/Time Provider Initiated Documentation: 10/10/23 12:17 . Limitations to Documentation: no limitations . Information obtained by: patient, RN notes reviewed and old records reviewed . HPI Narrative: 47-year-old female presents to the ER with chief complaint of right lower leg injury and swelling. Patient reports on or Monday she slipped in the tub injuring her right lower extremity. She does have a healing contusion noted to the anterior lateral aspect of her rivas. She now notes some blood pooling and swelling to her foot and tenderness. She has been ambulatory since the injury with some tenderness. She has been taking Tylenol with some relief. Denies any hip back pain denies hitting her head or loss of consciousness or any other associated symptoms. She is a smoker, denies any aspirin or blood thinners. She denies any drugs or alcohol. She does have a past medical history of cervical intraepithelial neoplasia, varicose veins ADHD, Lyme disease, PTSD and fibromyalgia. She does have a history of a tubal ligation. Denies any possibility of at this time. Related Data Home Medications ?Medication ?Instructions ?Recorded ?Confirmed cetirizine 5 mg chewable tablet 10 mg PO DAILY 07/23/12 10/10/23 levalbuterol tartrate 45 45 mcg inhalation QID 07/23/12 10/10/23 mcg/actuation aerosol inhaler (Xopenex HFA) omeprazole 20 mg capsule,delayed 20 mg PO DAILY 07/23/12 10/10/23 release ProAir HFA 90 mcg/actuation 2 puff inhalation Q6H PRN 06/30/17 10/10/23 aerosol inhaler (albuterol sulfate) acetaminophen 325 mg tablet 650 mg (2 x 325 mg) PO Q6H PRN PRN 07/13/17 10/10/23 (Tylenol) #30 tabs fluticasone propionate 250 1 inh inhalation Q12H 01/01/18 10/10/23 mcg/actuation blister powder for inhalation (Flovent Diskus) mirtazapine 7.5 mg tablet 7.5 mg PO HS 05/06/20 10/10/23 Savella 50 mg tablet (milnacipran) 25 mg PO DAILY 05/20/20 10/10/23 quetiapine 50 mg tablet (Seroquel) 50 mg PO DAILY 07/22/20 10/10/23 valacyclovir 500 mg tablet 500 mg PO BID PRN 08/20/23 10/10/23 Previous Rx's ?Medication ?Instructions ?Recorded acetaminophen 325 mg tablet 650 mg (2 x 325 mg) PO Q6H PRN PRN 07/13/17 (Tylenol) #30 tabs Allergies Allergy/AdvReac Type Severity Reaction Status Date / Time erythromycin base Allergy Intermediate Skin Rash Verified 10/10/23 12:15 (Erythromycin Base) Penicillins Allergy Intermediate Skin Rash Verified 10/10/23 12:15 propoxyphene napsylate (From Allergy Intermediate Hives Verified 10/10/23 12:15 Darvocet-N 100) amoxicillin Allergy Unknown Skin Rash Verified 10/10/23 12:15 naproxen (From Aleve) Allergy Unknown Other (See Verified 10/10/23 12:15 Comment) cyclobenzaprine (From Allergy unknown Verified 10/10/23 12:15 Flexeril) doxycycline Allergy rash, SOB, Verified 10/10/23 12:15 upset stomach nabumetone Allergy Skin Rash Verified 10/10/23 12:15 oxaprozin Allergy unknown Verified 10/10/23 12:15 ranitidine HCl (From Zantac) Allergy unknown Verified 10/10/23 12:15 Sulfa (Sulfonamide Allergy Hives Verified 10/10/23 12:15 Antibiotics) codeine (Codeine) AdvReac Intermediate Upset Verified 10/10/23 12:15 stomach ibuprofen AdvReac Intermediate upset Verified 10/10/23 12:15 stomach General Stated Complaint: Orthopedic KAYLYNN: 4 Review of Systems ENT Ears, Nose, Mouth, and Throat: Denies neck pain Musculoskeletal Musculoskeletal: Reports as per HPI and Denies neck pain Integumentary/Breasts Skin/Breast: Reports as per HPI Exam Extrem Ankle/foot/toe images: 2 1. Healing contusion 2. Ecchymosis 3. Ecchymosis and swelling Course Vital Signs Vital signs: Vital Signs Temperature 36.1 C L 10/10/23 12:11 Pulse 116 H 10/10/23 12:11 Respiratory Rate 18 10/10/23 12:11 Blood Pressure 165/98 H 10/10/23 12:11 Pulse Oximetry 96 10/10/23 12:11 Temperature 36.1 C L 10/10/23 12:11 Temperature Source Temporal Artery Scan 10/10/23 12:11 Pulse 116 H 10/10/23 12:11 Respiratory Rate 18 10/10/23 12:11 Respiratory Effort Normal 10/10/23 12:15 Blood Pressure 165/98 H 10/10/23 12:11 Blood Pressure Position Sitting 10/10/23 12:11 Pulse Oximetry 96 10/10/23 12:11 Oxygen Delivery Method Room Air 10/10/23 12:11 Oxygen Flow Rate 0 10/10/23 12:11 Pain Level 6 10/10/23 12:11 Medical Decision Making 47-year-old female presents to the ER with chief complaint of right lower leg injury and swelling. Patient reports on or Monday she slipped in the tub injuring her right lower extremity. She does have a healing contusion noted to the anterior lateral aspect of her rivas. She now notes some blood pooling and swelling to her foot and tenderness. She has been ambulatory since the injury with some tenderness. She has been taking Tylenol with some relief. Denies any hip back pain denies hitting her head or loss of consciousness or any other associated symptoms. She is a smoker, denies any aspirin or blood thinners. She denies any drugs or alcohol. She does have a past medical history of cervical intraepithelial neoplasia, varicose veins ADHD, Lyme disease, PTSD and fibromyalgia. She does have a history of a tubal ligation. Denies any possibility of at this time. X-ray tib-fib ankle and foot ordered. I did offer analgesic which patient declined at this time. I did instruct patient to elevate. X-rays show no acute fracture she does have calcaneal spur noted please see official reports. I do suspect that the ecchymosis is related to the rivas contusion. Will give walking boot instruct on RICE procedures and follow-up care if needed. This text was generated using [employer] system, please disregard any oddities of phrase or misspellings. Quality:SDOH Health Related Social Needs: 2 No Data to Display PFSH All Active Problems (Updated 10/10/23 @ 13:09 by Beth Blanton NP) Right ankle sprain (Acute) Contusion of lower leg, right (Acute) Itching (Acute) Erythema migrans (Lyme disease) (Acute) Tick bite (Acute) Rotator cuff tear, right (Acute) Tenosynovitis (Chronic 07/01/13) Tear of right glenoid labrum (Acute) Instability of right shoulder joint (Acute) Tendonitis of long head of biceps brachii of right shoulder (Acute) Bursitis of right shoulder (Acute) Impingement syndrome of right shoulder (Acute) PTSD (post-traumatic stress disorder) (Chronic) Mood disorder (Chronic) Anxiety disorder (Chronic) Fibromyalgia (Chronic) Asthma, mild persistent (Chronic) Tobacco abuse (Chronic) Learning difficulty (Chronic) Genital herpes (Chronic) Abdominal pain (Chronic) since ? 2016. CT scan neg for GI etiology. Pelvic u/s normal. Back pain (Chronic) Medical History JULIEN II (cervical intraepithelial neoplasia II) Varicose vein of leg Follicular cyst of ovary ADHD Lumbar back pain Myositis Mass of left thigh Vaginal discharge Surgical History Hx of tubal ligation Excision, Lesion (07/13/17) left posterior thigh, benign vascular proliferation and mature fibroadipose tissue Social History Smoking/Tobacco Use Status: Current every day Tobacco Type: cigarettes Smoking risk assessment performed?: Yes Alcohol Intake: never Drug use: Never Substance use type: former substance user Housing: apartment Current gender identity: female Seatbelt use: always Do you feel safe at home: Yes Do you feel safe in your relationship?: Yes PAWSS Have you Been Recently Intoxicated or Drunk Within the Last 30 days?: No Have you Ever Experienced Previous Episodes of Alcohol Withdrawal?: No Have you ever Experienced Withdrawal Seizures?: No Have you ever Experienced Delirium Tremens(DT)s?: No Have you ever undergone Alcohol Rehabilitation Treatment (i.e, inpt ot outpatient treatment programs)?: No Have you ever Experienced Blackouts?: No Have you ever Combined Alcohol with other Downers within the last 90 days?: No Have you ever Combined Alcohol with any other Substance of Abuse during the last 90 days?: No Result: 0
--- NOTE | 2023-10-10 12:51 | DI.RAD_ITS ---
Exam(s) XR ANKLE RT COMPLETE EXAM: XR ANKLE RT COMPLETE CLINICAL HISTORY: Fall, pain, swelling. TECHNIQUE: 2D digital imaging was performed. COMPARISON: CR RIGHT ANKLE COMPLETE from 09/16/2010 FINDINGS: 3 views Soft tissue swelling noted on both sides the ankle but no evidence of acute fracture or widening of t he ankle mortise. Talar dome unremarkable. Base of the 5th metatarsal unremarkable. Moderate size inferior calcaneal spur noted. IMPRESSION: No acute osseous findings in the ankle. DATA REPOSITORY: RADIATION DOSE DELIVERED:
--- NOTE | 2023-10-10 12:52 | DI.RAD_ITS ---
Exam(s) XR TIB/FIB RT EXAM: XR TIB/FIB RT CLINICAL HISTORY: Fall, pain, swelling. TECHNIQUE: 2D digital imaging was performed. COMPARISON: No exams were available for comparison FINDINGS: Two views No evidence of fracture of the tibia-fibula. Bone density normal. No osseous lesions. No radiopaqu e foreign bodies. IMPRESSION: No acute osseous findings in the tibia-fibula. DATA REPOSITORY: RADIATION DOSE DELIVERED:
--- NOTE | 2023-10-10 12:52 | DI.RAD_ITS ---
Exam(s) XR FOOT RT COMPLETE EXAM: XR FOOT RT COMPLETE CLINICAL HISTORY: Fall, swelling bruising, pain. TECHNIQUE: 2D digital imaging was performed. COMPARISON: CR XR FOOT RT COMPLETE from 07/15/2019 FINDINGS: 3 views There is diffuse soft tissue swelling over the dorsal aspect of the entire foot.. No evidence of acute fracture nor diastasis of the Lisfranc joint. Great toe metatarsophalangeal oracio nt appears unremarkable. No pes planus. Small inferior calcaneal spur noted. No osseous lesions no r erosions. No radiopaque foreign bodies. IMPRESSION: Prominent soft tissue swelling. No fractures evident. DATA REPOSITORY: RADIATION DOSE DELIVERED:
== END 2023-10-10 13:15 | disposition home or self-care (01) ==
LOC: ER 13:35
PROVIDERS: Emergency Provider Registered Nurse Emergency; PCP Nurse Practitioner Family
DX: S93.401A Sprain of unspecified ligament of right ankle, initial encounter (principal); S80.11XA Contusion of right lower leg, initial encounter; W18.2XXA Fall in (into) shower or empty bathtub, initial encounter
CPT/HCPCS: 29515; 99284; 73590; 73610; 73630; 99283

== ENCOUNTER 2023-12-04 09:42 | Day surgery (SDC) | payer MEDICAID, SELFPAY ==
--- NOTE | 2023-12-03 11:40 | W.PM.DSUDISC ---
Date of service: 12/04/23 Time of Service: 12:33 Discharge Plan Disposition Patient Disposition: Home Condition: Good Discharge Details Reason For Visit: Screening colonoscopy Attending Provider: Delonte Han Primary Care Provider: KANDICE SPRINGER Home Meds and New Rx's Prescriptions: Continued fluticasone propionate [Flovent Diskus] 250 mcg/actuation blister with device 1 inh IH Q12H quetiapine [Seroquel] 50 mg tablet 50 mg PO HS omeprazole 20 MG capsule,delayed release(DR/EC) 20 mg PO DAILY cetirizine 5 MG tablet,chewable 10 mg PO DAILY levalbuterol tartrate [Xopenex HFA] 15 GM HFA aerosol inhaler 45 mcg Inhalation QID albuterol sulfate [ProAir HFA] 8.5 GM HFA aerosol inhaler 2 puff Inhalation Q6H PRN lisinopril 10 mg tablet 10 mg PO DAILY medroxyprogesterone 150 mg/mL suspension 150 mg IM [id number] Savella 50 mg tablet 50 mg PO DAILY acetaminophen [Tylenol] 325 MG tablet 650 mg PO Q6H PRN PRNQty: 30 0RF valacyclovir 500 mg tablet 500 mg PO BID PRN Patient Comments: TAKE ONE TABLET BY MOUTH TWICE A DAY FOR 3 DAYS FOR EACH RECURRENCE mirtazapine 7.5 mg tablet 7.5 mg PO HS Patient Comments: TAKE ONE TABLET BY MOUTH AT BEDTIME Discontinued bisacodyl [Dulcolax (bisacodyl)] 5 mg tablet,delayed release (DR/EC) 5 mg PO ONCE Qty: 4 0RF Rx Instructions: Take per colonoscopy instructions provided by ordering providers office polyethylene glycol 3350 17 gram/dose powder 17 g PO ONCE Qty: 238 0RF Rx Instructions: Take per colonoscopy instructions provided by ordering providers office Discharge Instructions Instructions: Colon polyps Additional Instructions: Elsa, it was very nice to meet you today, and I hope you are comfortable during the colonoscopy. Your prep was excellent and I could see everything fine. I did find and remove 1 small polyp in the first part of your colon (this is known as the cecum). This will be sent off for testing, because polyps, and different varieties. The nature of the polyp will determine the timing of your next colonoscopy. Takes about a week or 2 to get the results of the polyp report, but once we have office has them, we will be in touch with those recommendations. Incidentally, he have a little bit of internal hemorrhoids as well. I do not think this is anything to worry about. I would recommend increasing the fiber in your diet, or using a stool softener if your hemorrhoids are at all bothersome. If you have any questions before the polyp results are available, please do not hesitate to call. 1. If tolerated, consume a soft, low fiber diet for 1-2 days. 2[address] Do not drive, drink alcohol, operate machinery, make critical decisions, or do activities that require coordination or balance for 24 hours. 3. Because air was put into your colon during the procedure, expelling air from your rectum (passing gas or farting) is normal. 4. You may not have a bowel movement for 1-3 days because of the colonoscopy prep. This is normal. 5. Go directly to the emergency room if you notice any of the following: Develop chills (warm to touch), or if you have a thermometer and your temperature is above 101 Difficulty breathing or difficultly swallowing Persistent vomiting Severe abdominal pain, other than gas cramps Severe chest pain Black, tarry stools Any bleeding ? exceeding one tablespoon 6. Call your physician if the site where your intravenous was started becomes red, swollen, painful, and warm to touch. 7. Your physician has reviewed your pre-procedure medications. Please continue to take those medications as previously ordered. You will be given specific information/education regarding any changes to your medications before leaving. Activity:: Activity as Tolerated Diet:: As Tolerated Discharge Orders Discharge Orders: Discharge Order (Routine); Ordered 12/03/23 Ordered By: Delonte Han DS: Diagnosis Discharge Diagnosis (1) Encounter for screening colonoscopy: Status: Acute Asessment and Plan: Follow-up on polypectomy results
--- NOTE | 2023-12-03 11:42 | W.COLOREPORT ---
Date of service: 12/04/23 Time of Service: 12:35 Colonoscopy Report Date of procedure: 12/04/23 Pre-op diagnosis general: screening colonoscopy Post-op diagnosis procedure note: other (Cecal polyp, internal hemorrhoids) Procedure: colonoscopy with polypectomy Surgeon: Delonte Han Anesthesia Type: General:No Airway Estimated blood loss (mL): 5 Pathology: other (0.25 cm pedunculated polyp in the cecum) Complications: None Disposition: same day Indications: Elsa is a 48 year old woman who needs a screening colonoscopy Prep: Miralax/Dulcolax Procedure Start Time: 12:16 Procedure End Time: 12:29 Retraction Time: 6 Findings: Internal hemorrhoids and 0.5 cm cecal polyp Procedure Description: After the induction of anesthesia, and with the patient in left lateral decubitus position, I began by performing an external anorectal exam.? Perineum and skin were normal, as was the anal verge.? There was no evidence of external hemorrhoids.? Next, I performed a digital rectal exam.? I did not appreciate any abnormal findings.? Next, I advanced a colonoscope into the rectal vault.? I performed retroflexion.? There are internal hemorrhoids.? Using insufflation, I then advanced the colonoscope beyond the rectal folds and into the sigmoid colon before advancing towards the cecum.? The scope was noted to be in the cecum by identification of the ileocecal valve and appendiceal orifice.? Few centimeters away from the appendix was a 0.25 cm pedunculated polyp. This was removed with cold forcep polypectomy with minimal bleeding. I then began withdrawing the colonoscope using repeated irrigation as necessary for full evaluation of the colonic mucosa. ?Once the scope was withdrawn to the level of the rectum, great care was taken to examine portions of the rectal folds.? Finally, the scope was withdrawn and the patient was brought to the same-day surgery recovery unit as the anesthetic wore off. ?The findings and instructions were shared with the patient prior to discharge. Glover Bowel Prep Glover Bowel Prep Right Colon: 3 Left Colon: 3 Transverse Colon: 3 Total Score: 9
[2023-12-04 09:58] VITALS: BP 155/112; PULSE 104; RESP 18; TEMP 36.6; O2SAT 96
--- NOTE | 2023-12-04 11:01 | W.ANESPRE ---
General Info Date of Service Date Performed: 12/04/23 Height: 5 ft 6 in Weight: 90.7 kg Body Mass Index (BMI): 32.3 Surgical Procedure: Operation Date: 12/04/23 11:35 Proposed Procedure Side Surgeon jhonatan Han MD Meds Allergies and Home Medications Allergies Allergy/AdvReac Type Severity Reaction Status Date / Time lamotrigine Allergy Severe Rash Verified 12/04/23 10:13 topiramate (From Topamax) Allergy Severe Rash Verified 12/04/23 10:13 erythromycin base Allergy Intermediate Skin Rash Verified 12/04/23 10:13 (Erythromycin Base) Penicillins Allergy Intermediate Skin Rash Verified 12/04/23 10:13 propoxyphene napsylate (From Allergy Intermediate Hives Verified 12/04/23 10:13 Darvocet-N 100) amoxicillin Allergy Unknown Skin Rash Verified 12/04/23 10:13 naproxen (From Aleve) Allergy Unknown Other (See Verified 12/04/23 10:13 Comment) cyclobenzaprine (From Allergy unknown Verified 12/04/23 10:13 Flexeril) doxycycline Allergy rash, SOB, Verified 12/04/23 10:13 upset stomach nabumetone Allergy Skin Rash Verified 12/04/23 10:13 oxaprozin Allergy unknown Verified 12/04/23 10:13 ranitidine HCl (From Zantac) Allergy unknown Verified 12/04/23 10:13 Sulfa (Sulfonamide Allergy Hives Verified 12/04/23 10:13 Antibiotics) codeine (Codeine) AdvReac Intermediate Upset Verified 12/04/23 10:13 stomach ibuprofen AdvReac Intermediate upset Verified 12/04/23 10:13 stomach Home Medication ?Medication ?Instructions ?Recorded cetirizine 5 mg chewable tablet 10 mg PO DAILY 07/23/12 levalbuterol tartrate 45 45 mcg inhalation QID 07/23/12 mcg/actuation aerosol inhaler (Xopenex HFA) omeprazole 20 mg capsule,delayed 20 mg PO DAILY 07/23/12 release ProAir HFA 90 mcg/actuation 2 puff inhalation Q6H PRN 06/30/17 aerosol inhaler (albuterol sulfate) acetaminophen 325 mg tablet 650 mg (2 x 325 mg) PO Q6H PRN PRN 07/13/17 (Tylenol) #30 tabs fluticasone propionate 250 1 inh inhalation Q12H 01/01/18 mcg/actuation blister powder for inhalation (Flovent Diskus) mirtazapine 7.5 mg tablet 7.5 mg PO HS 05/06/20 quetiapine 50 mg tablet (Seroquel) 50 mg PO HS 07/22/20 valacyclovir 500 mg tablet 500 mg PO BID PRN 08/20/23 lisinopril 10 mg tablet 10 mg PO DAILY 10/25/23 medroxyprogesterone 150 mg/mL 150 mg IM [id number] 10/25/23 intramuscular suspension milnacipran 50 mg tablet (Savella) 50 mg PO DAILY 10/25/23 Current Visit Medications: Current Medications Generic Name Dose Route Start Last Admin Trade Name Freq PRN Reason Stop Dose Admin Ringer's Solution 1,000 mls @ 80 mls/hr 12/04/23 06:00 IV 12/04/23 23:59 INFUSION [facility] IV Miscellaneous Supplies 1 each 12/04/23 06:00 Iv Access IV 12/04/23 23:59 DIRECTED NORMA Ondansetron HCl 4 mg 12/03/23 11:43 Ondansetron 4 Mg/2 Ml Vial IVP 01/02/24 11:42 Q4H PRN PRN Nausea / Vomiting Sodium Chloride 0 ml 12/04/23 06:00 Normal Saline Flush 10 Ml Syr IV 12/04/23 23:59 PRN PRN Sodium Chloride 0 ml 12/04/23 06:00 Normal Saline 10 Ml Vial IJ 12/04/23 23:59 DIRECTED PRN Sterile Water 0 ml 12/04/23 06:00 Water,Injection,Sterile 10 Ml Vial IJ 12/04/23 23:59 DIRECTED PRN PFSH Active Problems Active Problems: Problem Status Onset Code Encounter for screening colonoscopy Acute Z12.11 Itching Acute L29.9 Erythema migrans (Lyme disease) Acute A69.20 Tick bite Acute W57.XXXA Rotator cuff tear, right Acute M75.101 Impingement syndrome of right shoulder Acute M75.41 Bursitis of right shoulder Acute M75.51 Tendonitis of long head of biceps brachii of right shoulder Acute M75.21 Instability of right shoulder joint Acute M25.311 Tear of right glenoid labrum Acute S43.431A Tenosynovitis Chronic 07/01/13 M65.9 Back pain Chronic M54.9 Abdominal pain Chronic R10.9 Genital herpes Chronic A60.00 Learning difficulty Chronic Tobacco abuse Chronic Asthma, mild persistent Chronic Fibromyalgia Chronic Anxiety disorder Chronic Mood disorder Chronic PTSD (post-traumatic stress disorder) Chronic Medical History Medical History COPD (chronic obstructive pulmonary disease) JULIEN II (cervical intraepithelial neoplasia II) Varicose vein of leg Follicular cyst of ovary ADHD Lumbar back pain Myositis Mass of left thigh Vaginal discharge Surgical History Surgical History Hx of tubal ligation Excision, Lesion (07/13/17) left posterior thigh, benign vascular proliferation and mature fibroadipose tissue Tobacco Smoking/Tobacco Use Status: Current every day Tobacco Type: cigarettes Alcohol Alcohol Intake: current Alcohol intake frequency: a few times a month Substance Use Substance use: Never Substance use type: former substance user Vital Signs and Lab Results Vital Signs Most Recent Vital Signs in EMR: Most Recent Vital Signs Temp Pulse Resp BP Pulse Ox 36.6 C 104 H 18 155/112 H 96 12/04/23 09:58 12/04/23 09:58 12/04/23 09:58 12/04/23 09:58 12/04/23 09:58 Lab Results Blood Type / Crossmatch: No Data to Display Complete Blood Count: No Data to Display Complete Metabolic Panel: No Data to Display Liver Function Panel: No Data to Display Coagulation Panel: No Data to Display Cardiac Panel: No Data to Display Arterial Blood Gas: No Data to Display Venous Blood Gas: No Data to Display Pancreas Panel: No Data to Display Thyroid Panel: No Data to Display Infectious Disease: No Data to Display Blood Cultures: No Data to Display Toxicology Panel: No Data to Display Panel: No Data to Display Imaging and Studies Imaging and Studies Study information below may be from another EMR and interpreted by another provider. Please see original notes in EMR for more complete details. EKG Summary: EKG PATIENT NAME: Guerda Hu UNIT #: [id number] ORDERING PROVIDER: Mati Santillan M.D. PRIMARY CARE PROVIDER: KANDICE SPRINGER NP DATE/TIME OF SERVICE: 08/20/23 1552 : 1975 PERFORMING LOCATION: ER APPROVED REPORT Exam: Resting ECG Reason for Exam: leg swelling Patient Location: E HR:100 bpm ECG Measurements Heart Rate 100 AXIS SC 154 P 51 QRSd 77 QRS -12 QT 372 T22 QTc 476 Conclusion Sinus rhythm...normal P axis, V-rate 60- 99 Probable left atrial enlargement...P >50mS, <-0.10mV V1 Narrow complex sinus tachycardia at a rate of 100. Left axis deviation no signs of LVH. Intervals within normal limits. No ST segment abnormalities. No acute injury pattern. Appears similar to prior. <Electronically signed by Raymundo Klein M.D. in [place]> E-Sign Date: 08/20/23 E-Sign Time: 1557 ADDENDUM APPROVED REPORT Exam: Resting ECG Reason for Exam: leg swelling Patient Location: E HR:100 bpm ECG Measurements Heart Rate 100 AXIS SC 154 P 51 QRSd 77 QRS -12 QT 372 T22 QTc 476 Conclusion Sinus rhythm...normal P axis, V-rate 60- 99 Probable left atrial enlargement...P >50mS, <-0.10mV V1 Narrow complex sinus tachycardia at a rate of 100. Left axis deviation no signs of LVH. Intervals within normal limits. No ST segment abnormalities. No acute injury pattern. Appears similar to prior. I have reviewed and I agree with the emergency room physician's ECG interpretation. Electronically signed by: <Electronically signed by Josi Puentes M.D. in [place]> 08/21/23 0814 Cosigned by: Pulmonary Function Summary: Pulmonary Function Test PATIENT NAME: GUERDA HU UNIT #: [id number] ADMITTING PROVIDER: KRYSTIAN VALLEJO MD PRIMARY CARE PROVIDER: SABINE MENDIOLA NP DATE OF ADMIT: 02/22/19 : 1975 PULMONARY FUNCTION TEST REPORT DATE OF SERVICE: February 22, 2019 REQUESTING PROVIDER: Sabine Mendiola NQing Spirometry shows moderately severe obstructive airways disease with significant bronchodilator response. Lung volumes show no evidence of restriction. Diffusion capacity moderately reduced, which is normal when corrected to alveolar volume. Airways resistance normal. IMPRESSION: Moderately severe obstructive airways disease with significant bronchodilator response. This is associated with moderate diffusion defect. Clinical correlation recommended. KAL/kathryn D/ Dictated by: KRYSTIAN VALLEJO MD Dict Date: 03/04/19 Dict Time: 1207 <Electronically signed by KRYSTIAN VALLEJO MD> Date: 03/07/19 Time: 0805 Anesthesia Assessment and Plan Anesthesia History Personal History: No History of Anesthesia Complications Family History: No Family History of Anesthesia Complications Exercise Tolerance Exercise Tolerance: Metabolic Equivalents>4 Pertinent Negatives Pertinent Negatives: No Symptoms of GERD Cardiac & Pulmonary Exam Cardiac Exam: Normal S1/S2 Heart Sounds Pulmonary Exam: Clear Bilateral Breath Sounds Implantable Cardiac Device Does patient have a Pacemaker or an ICD?: No Airway Exam Known Difficult Airway: No Mallampati Class: 2 Mouth Opening: Normal (> 3cm) Thyromental Distance: Greater than 3 cm Neck Range of Motion: Full ROM Neck Circumference: Normal Teeth Condition: Edentulous ASA Classification ASA Score: ASA 3 Emergency Case?: No NPO Status NPO Status: NPO Clears >2 hours, Solids >8 hours Status Status: Negative HCG Anesthesia Plan Resuscitation Status: Full Code Anesthesia Technique: General Anesthesia Airway Planned: Natural Airway Monitors Used: Standard Monitors
[2023-12-04] MEDS: Lactated Ringers 1,000 ML 80 ML IV (11:09)
[2023-12-04 11:26] VITALS: BMI 32.3
--- NOTE | 2023-12-04 12:24 | BOWEL_PTH ---
PATIENT: Elsa Oh LOC: [facility] U#:[id number] AGE/SX: 48/F ROOM: RE12/04/[address]: Delonte Han MD : 1975 BED: DIS: 12/04/2023 SPEC #: [id number] RECD: 12/04/23 17:02 STATUS: VESNA RE #: [id number] THIAGO: 12/04/23 12:[address]: Delonte Han DEPT: Surgical Specimen RECD BY: Kellen Montes ENTERED: 12/04/23 17:02 SP TYPE: Bowel OTHR DR: KANDICE SPRINGER NP Tissues: 1 - BIOPSY BOWEL Procedures: GROSS AND MICRO LEVEL 4 Comments: [id number]
[2023-12-04 12:36] VITALS: BP 167/116; PULSE 109; RESP 16; TEMP 36.1; O2SAT 98
[2023-12-04 13:06] VITALS: BP 174/125; PULSE 95; RESP 16; TEMP 36.2; O2SAT 97
--- NOTE | 2023-12-04 13:12 | W.ANESPOSTOP ---
Postoperative Evaluation Date, Time and Location Date Performed: 12/04/23 Time Performed: 12:40 Patient Location: Day Surgery Unit Vital Signs Most Recent Imported Vital Signs: Most Recent Vital Signs Temp Pulse Resp BP Pulse Ox 36.2 C L 95 H 16 174/125 H 97 12/04/23 13:06 12/04/23 13:06 12/04/23 13:06 12/04/23 13:06 12/04/23 13:06 Pain Score Most Recent Pain Score: Most Recent Pain Score Pain Level 0 12/04/23 13:06 Assessment Mental Status: Awake (Alert & Oriented to Patient Baseline) Airway and Respiratory Function: Patent airway with normal (patient baseline) respiratory exam Cardiovascular Function: Hemodynamically Stable Hydration Status: Adequately Hydrated Nausea & Vomiting: No Nausea or Vomiting Pain: Pt. Denies Any Pain Peripheral Nerve Block: Patient did not receive a nerve block
== END 2023-12-04 13:06 | disposition home or self-care (01) ==
PROVIDERS: PCP Nurse Practitioner Family; Visit Provider Surgery
PROC: 0DJD8ZZ Inspection of Lower Intestinal Tract, Via Natural or Artificial Opening Endoscopic (ICD-10-PCS; CPT 45378; principal; 2023-12-04 11:30)
DX: Z12.11 Encounter for screening for malignant neoplasm of colon (principal); D12.0 Benign neoplasm of cecum; K64.8 Other hemorrhoids
CPT/HCPCS: 45380; 81025; 88305; J2704

== ENCOUNTER 2024-03-11 17:42 | Emergency (ER) | payer MEDICAID, SELFPAY ==
[2024-03-11 17:49] VITALS: BP 175/138; PULSE 102; RESP 16; TEMP 36.5; O2SAT 98
--- NOTE | 2024-03-11 18:09 | W.ED.GENAD ---
Discharge Plan Disposition Patient Disposition: Home Discharge Details Clinical Impression: Superficial burn of back of hand Primary Care Provider: KANDICE SPRINGER ED Provider: Arlette Ford Home Meds and New Rx's Prescriptions: No Action fluticasone propionate [Flovent Diskus] 250 mcg/actuation blister with device 1 inh IH Q12H quetiapine [Seroquel] 50 mg tablet 50 mg PO HS omeprazole 20 MG capsule,delayed release(DR/EC) 20 mg PO DAILY cetirizine 5 MG tablet,chewable 10 mg PO DAILY levalbuterol tartrate [Xopenex HFA] 15 GM HFA aerosol inhaler 45 mcg Inhalation QID albuterol sulfate [ProAir HFA] 8.5 GM HFA aerosol inhaler 2 puff Inhalation Q6H PRN lisinopril 10 mg tablet 10 mg PO DAILY medroxyprogesterone 150 mg/mL suspension 150 mg IM [id number] Savella 50 mg tablet 50 mg PO DAILY acetaminophen [Tylenol] 325 MG tablet 650 mg PO Q6H PRN PRNQty: 30 0RF valacyclovir 500 mg tablet 500 mg PO BID PRN Patient Comments: TAKE ONE TABLET BY MOUTH TWICE A DAY FOR 3 DAYS FOR EACH RECURRENCE mirtazapine 7.5 mg tablet 7.5 mg PO HS Patient Comments: TAKE ONE TABLET BY MOUTH AT BEDTIME Discharge Instructions Instructions: Minor Skin August ED Additional Instructions: I encourage you to apply cool compresses for comfort. You may use aloe vera/aloe vera with lidocaine according to package instructions. It might help to put aloe in the fridge to provide cooling effect. If you wish, you may apply triple antibiotic ointment to help keep the skin moisturized. Do not pop any blisters. Please do range of motion of your hand, extending and flexing her fingers to help keep the skin supple your joints mobile. Use Tylenol 2 tablets (1000 mg total) every 6 hours, no more than 8 tablets in a day for pain control. I encourage you follow-up with your PCP if you have any concerns within the next week and would like it rechecked. Return to emergency care if you develop severe swelling, inability to bend your fingers, numbness to your fingers, pus drainage, or if you are very worried and need to be rechecked again immediately. Referrals: KANDICE SPRINGER NP [Primary Care Provider] - Discharge Data Discharge Date/Time-TO BE ENTERED AT DEPARTURE: 03/11/24 18:28 HPI General Date/Time Provider Initiated Documentation: 03/11/24 17:53. HPI Narrative: Elsa is a 48year old female who presents to the emergency department today for evaluation of burn to her right thumb and index finger. She reports that she was cooking sausage when she bumped into her dog and it splashed in a sausage grease on her hands. She ran it under cold tap water and applied cool compress / aloe right away. It is currently giving her 6 out of 10 discomfort. She is fully able to flex and extend the fingers, has sensation intact distally. She is right-handed. He is up-to-date for tetanus, 2019 according to [facility] records. She has not taken any pain medication so far. Physical exam reassuring. Mild erythema consistent with superficial thermal burn noted to the radial aspect of the right index finger and dorsal aspect of the right thumb. Burn is not circumferential. No blisters or peeling of skin. No other injuries noted. History and presentation consistent with minor superficial thermal august to the right hand. No red flags indicating need for specialist referral, august are not circumferential or extensive. While in the emergency department, Elsa received a refillable ice pack for use at home. Toradol was given IM for pain control, as Elsa is unable to tolerate p.o. ibuprofen due to stomach upset. Reviewed discharge instructions with patient, including symptomatic management, pain control, importance of range of motion to preserve mobility, and red flags indicating need for return to emergency care. She voices agreement with plan of care. Recommend follow-up with PCP for reevaluation as needed. Related Data Home Medications ?Medication ?Instructions ?Recorded ?Confirmed cetirizine 5 mg chewable tablet 10 mg PO DAILY 07/23/12 03/11/24 levalbuterol tartrate 45 45 mcg inhalation QID 07/23/12 03/11/24 mcg/actuation aerosol inhaler (Xopenex HFA) omeprazole 20 mg capsule,delayed 20 mg PO DAILY 07/23/12 03/11/24 release ProAir HFA 90 mcg/actuation 2 puff inhalation Q6H PRN 06/30/17 03/11/24 aerosol inhaler (albuterol sulfate) acetaminophen 325 mg tablet 650 mg (2 x 325 mg) PO Q6H PRN PRN 07/13/17 03/11/24 (Tylenol) #30 tabs fluticasone propionate 250 1 inh inhalation Q12H 01/01/18 03/11/24 mcg/actuation blister powder for inhalation (Flovent Diskus) mirtazapine 7.5 mg tablet 7.5 mg PO HS 05/06/20 03/11/24 quetiapine 50 mg tablet (Seroquel) 50 mg PO HS 07/22/20 03/11/24 valacyclovir 500 mg tablet 500 mg PO BID PRN 08/20/23 03/11/24 lisinopril 10 mg tablet 10 mg PO DAILY 10/25/23 03/11/24 medroxyprogesterone 150 mg/mL 150 mg IM [id number] 10/25/23 03/11/24 intramuscular suspension milnacipran 50 mg tablet (Savella) 50 mg PO DAILY 10/25/23 03/11/24 Previous Rx's ?Medication ?Instructions ?Recorded acetaminophen 325 mg tablet 650 mg (2 x 325 mg) PO Q6H PRN PRN 07/13/17 (Tylenol) #30 tabs Allergies Allergy/AdvReac Type Severity Reaction Status Date / Time lamotrigine Allergy Severe Rash Verified 03/11/24 17:48 topiramate (From Topamax) Allergy Severe Rash Verified 03/11/24 17:48 erythromycin base Allergy Intermediate Skin Rash Verified 03/11/24 17:48 (Erythromycin Base) Penicillins Allergy Intermediate Skin Rash Verified 03/11/24 17:48 propoxyphene napsylate (From Allergy Intermediate Hives Verified 03/11/24 17:48 Darvocet-N 100) amoxicillin Allergy Unknown Skin Rash Verified 03/11/24 17:48 naproxen (From Aleve) Allergy Unknown Other (See Verified 03/11/24 17:48 Comment) cyclobenzaprine (From Allergy unknown Verified 03/11/24 17:48 Flexeril) doxycycline Allergy rash, SOB, Verified 03/11/24 17:48 upset stomach nabumetone Allergy Skin Rash Verified 03/11/24 17:48 oxaprozin Allergy unknown Verified 03/11/24 17:48 ranitidine HCl (From Zantac) Allergy unknown Verified 03/11/24 17:48 Sulfa (Sulfonamide Allergy Hives Verified 03/11/24 17:48 Antibiotics) codeine (Codeine) AdvReac Intermediate Upset Verified 03/11/24 17:48 stomach ibuprofen AdvReac Intermediate upset Verified 03/11/24 17:48 stomach General Stated Complaint: Burn KAYLYNN: 3 Review of Systems Narrative: See HPI Exam Const General: cooperative, comfortable, no acute distress and well developed Orientation: alert and oriented x3 Resp Effort & Inspection: normal respiratory effort and able to speak in complete sentences Skin General skin exam: elasticity normal Neuro General: tone normal, moves all extremities and no focal motor deficits Sensory Exam: no sensory deficits noted Extrem Right upper extremity: hand (Superficial august noted to dorsum of R thumb and radial aspect of index) Details: normal capillary refill, neurosensory exam normal, normal ROM of fingers, no swelling and other (no blisters or crusting/drainage); no unusual warmth and no lacerations Course Vital Signs Vital signs: Vital Signs Temperature 36.5 C 03/11/24 17:49 Pulse 102 H 03/11/24 17:49 Respiratory Rate 16 03/11/24 17:49 Blood Pressure 175/138 H 03/11/24 17:49 Pulse Oximetry 98 03/11/24 17:49 Temperature 36.5 C 03/11/24 17:49 Temperature Source Temporal Artery Scan 03/11/24 17:49 Pulse 102 H 03/11/24 17:49 Respiratory Rate 16 03/11/24 17:49 Blood Pressure 175/138 H 03/11/24 17:49 Blood Pressure Position Sitting 03/11/24 17:49 Pulse Oximetry 98 03/11/24 17:49 Oxygen Delivery Method Room Air 03/11/24 17:49 Oxygen Flow Rate 0 03/11/24 17:49 Pain Level 10 03/11/24 17:49 Medical Decision Making Quality:SDOH Health Related Social Needs: No Data to Display PFSH All Active Problems (Updated 03/11/24 @ 18:14 by Arlette Anderson) Superficial burn of back of hand (Acute) Encounter for screening colonoscopy (Acute) Itching (Acute) Erythema migrans (Lyme disease) (Acute) Tick bite (Acute) Rotator cuff tear, right (Acute) Impingement syndrome of right shoulder (Acute) Bursitis of right shoulder (Acute) Tendonitis of long head of biceps brachii of right shoulder (Acute) Instability of right shoulder joint (Acute) Tear of right glenoid labrum (Acute) Tenosynovitis (Chronic 07/01/13) Back pain (Chronic) Abdominal pain (Chronic) since ? 2016. CT scan neg for GI etiology. Pelvic u/s normal. Genital herpes (Chronic) Learning difficulty (Chronic) Tobacco abuse (Chronic) Asthma, mild persistent (Chronic) Fibromyalgia (Chronic) Anxiety disorder (Chronic) Mood disorder (Chronic) PTSD (post-traumatic stress disorder) (Chronic) Medical History (Updated 03/11/24 @ 18:14 by Arlette Anderson) Tubular adenoma of colon (~11/2023) COPD (chronic obstructive pulmonary disease) JULIEN II (cervical intraepithelial neoplasia II) Varicose vein of leg Follicular cyst of ovary ADHD Lumbar back pain Myositis Mass of left thigh Vaginal discharge Surgical History (Updated 12/04/23 @ 15:35 by Aida Moscoso) History of colonoscopy (~11/2023) Hx of tubal ligation Excision, Lesion (07/13/17) left posterior thigh, benign vascular proliferation and mature fibroadipose tissue Social History Smoking/Tobacco Use Status: Current every day Tobacco Type: cigarettes Smoking risk assessment performed?: Yes Alcohol Intake: current Alcohol Intake frequency: a few times a month Drug use: Never Substance use type: former substance user Housing: house Current gender identity: female Seatbelt use: always Do you feel safe at home: Yes Do you feel safe in your relationship?: Yes
[2024-03-11] MEDS: Ketorolac 30 MG/ML VIAL IM (18:21)
== END 2024-03-11 18:28 | disposition home or self-care (01) ==
LOC: ER 18:29
PROVIDERS: Emergency Provider Nurse Practitioner Family; PCP Nurse Practitioner Family
DX: T23.111A Burn of first degree of right thumb (nail), initial encounter (principal)
CPT/HCPCS: 96372; 99284; 99283; J1885

== ENCOUNTER 2024-04-11 00:21 | Outpatient (CLI) | payer MEDICAID, SELFPAY ==
--- NOTE | 2024-04-11 13:03 | DI.MAMMO_ITS ---
Exam(s) MAMMO SCREENING EXAM: MAMMO SCREENING CLINICAL HISTORY: Screening, Z12.31 TECHNIQUE: Mammograms were interpreted according to the usual protocol including computer analysis w [email or web address] CAD system, tomosynthesis and C-view imaging. COMPARISON: 2017 through 2022 FINDINGS: The breasts are composed of mainly fatty density , Breast Density category A. No suspicious masses or suspicious microcalcifications are seen. No skin thickening or abnormal axillary lymph nodes are seen. There has been no significant change from prior exams. IMPRESSION: BI-RADS Category 1, Negative mammogram Yearly screening mammography is recommended. Breast Density - Category A, fatty density. A negative radiographic report should not delay biopsy if a dominant or clinically suspicious mass is present. Up to ten percent of cancers are not identified on mammography. A negative report may reinforce clinical impression. Adenosis and dense breasts may obscure an underlying neoplasm. False positive reports average 6 to 10%. Patient will receive a letter notifying them of these results.
== END 2024-04-11 00:41 ==
LOC: DI 00:21
PROVIDERS: PCP Nurse Practitioner Family; Visit Provider Nurse Practitioner Family
DX: Z12.31 Encounter for screening mammogram for malignant neoplasm of breast (principal)
CPT/HCPCS: 77063; 77067

== ENCOUNTER 2024-05-03 09:31 | Outpatient (CLI) | payer MEDICAID, SELFPAY ==
--- NOTE | 2024-05-03 14:58 | DI.RAD_ITS ---
Exam(s) XR ANKLE RT COMPLETE EXAM: XR ANKLE RT COMPLETE CLINICAL HISTORY: SPRAIN OF RIGHT ANKLE, M25.571. TECHNIQUE: 2D digital imaging was performed. Three views. COMPARISON: CR XR ANKLE RT COMPLETE from 10/10/2023 FINDINGS: BONES: No acute fracture is present. No bony destructive lesion is seen. Plantar calcaneal spur. Small enthesophyte at the Achilles Insertion. JOINTS: The ankle mortise is normally aligned. SOFT TISSUE: Soft tissue swelling, greater around the lateral malleolus. IMPRESSION: Soft tissue swelling. No bony abnormality. DATA REPOSITORY: RADIATION DOSE DELIVERED:
== END 2024-05-03 09:51 ==
LOC: DI 09:31
PROVIDERS: PCP Nurse Practitioner Family; Visit Provider Nurse Practitioner Family
DX: M25.571 Pain in right ankle and joints of right foot (principal)
CPT/HCPCS: 73610

== ENCOUNTER 2024-06-19 10:15 | Emergency (ER) | payer MEDICAID, SELFPAY ==
[2024-06-19 10:17] VITALS: BP 207/122; PULSE 73; RESP 20; TEMP 36.3; O2SAT 93
--- NOTE | 2024-06-19 10:45 | DI.RAD_ITS ---
Exam(s) XR CHEST 2V PA LATERAL EXAM: XR CHEST 2V PA LATERAL CLINICAL HISTORY: cough, left rib pain. TECHNIQUE: 2D digital imaging was performed. COMPARISON: CR,XR XR CHEST 2V PA LATERAL from 08/20/2023 FINDINGS: 2 views: Heart size is normal. The mediastinum is not widened. Lungs are clear. No infiltrates nor pleural effusions. IMPRESSION: No acute pulmonary findings. DATA REPOSITORY: RADIATION DOSE DELIVERED:
--- NOTE | 2024-06-19 11:22 | ED.GENADUL_ITS ---
Discharge Plan Disposition Patient Disposition: Home Condition: Good Discharge Details Clinical Impression: URI (upper respiratory infection), Cough, Acute costochondritis Primary Care Provider: KANDICE SPRINGER ED Provider: Kathe Gutierrez Home Meds and New Rx's Prescriptions: Continued fluticasone propionate [Flovent Diskus] 250 mcg/actuation blister with device 1 inh IH Q12H quetiapine [Seroquel] 50 mg tablet 50 mg PO HS omeprazole 20 MG capsule,delayed release(DR/EC) 20 mg PO DAILY cetirizine 5 MG tablet,chewable 10 mg PO DAILY levalbuterol tartrate [Xopenex HFA] 15 GM HFA aerosol inhaler 45 mcg Inhalation QID albuterol sulfate [ProAir HFA] 8.5 GM HFA aerosol inhaler 2 puff Inhalation Q6H PRN lisinopril 10 mg tablet 10 mg PO DAILY medroxyprogesterone 150 mg/mL suspension 150 mg IM [id number] Savella 50 mg tablet 50 mg PO DAILY acetaminophen [Tylenol] 325 MG tablet 650 mg PO Q6H PRN PRNQty: 30 0RF valacyclovir 500 mg tablet 500 mg PO BID PRN Patient Comments: TAKE ONE TABLET BY MOUTH TWICE A DAY FOR 3 DAYS FOR EACH RECURRENCE mirtazapine 7.5 mg tablet 7.5 mg PO HS Patient Comments: TAKE ONE TABLET BY MOUTH AT BEDTIME Discharge Instructions Instructions: Cough, Adult ED Additional Instructions: As discussed, your exam and imaging are reassuring. No evidence of pneumonia, bronchitis or rub fracture. However, you can easily pull a muscle or develop inflammation which causes chest discomfort, particularly with deep breathing and coughing. Please continue with your inhalers. Please encourage hydration. tylenol as needed for discomfort, take as directed on the packaging. You may also use topical options such as heat/ice, Lidocaine patches which are available over amparo counter. Please follow up with primary care next week for reevaluation. If you develop other new/worsening symptoms, please seek care urgently once again. Referrals: KANDICE SPRINGER, QUALITY ASSURANCE TECHNICIAN [Primary Care Provider] - Discharge Data Discharge Date/Time-TO BE ENTERED AT DEPARTURE: 06/19/24 13:13 HPI General Date/Time Provider Initiated Documentation: 06/19/24 11:22 . Information obtained by: patient and RN notes reviewed . History of Present Illness 48 year old F presents to the emergency department with the chief complaint of cough, congestion, left sided rib pain with cough, with intensity rated at 5. Quality is described as stabbing (with cough), and is localized to the chest (left lower, lateral rib pain with cough). Patient started experiencing this week(s) (cough began one week ago) and it has been constant. Immobilization improves symptom(s), Movement worsens symptoms . Patient notes chest pain, cough and shortness of breath (feels SOB associated some with cough but no exertional symptoms); denies diaphoresis, fever/chills, malaise, nausea/vomiting and rash. Patient did receive the following treatments prior to arrival, none Related Data Home Medications ?Medication ?Instructions ?Recorded ?Confirmed cetirizine 5 mg chewable tablet 10 mg PO DAILY 07/23/12 03/11/24 levalbuterol tartrate 45 45 mcg inhalation QID 07/23/12 03/11/24 mcg/actuation aerosol inhaler (Xopenex HFA) omeprazole 20 mg capsule,delayed 20 mg PO DAILY 07/23/12 03/11/24 release ProAir HFA 90 mcg/actuation 2 puff inhalation Q6H PRN 06/30/17 03/11/24 aerosol inhaler (albuterol sulfate) acetaminophen 325 mg tablet 650 mg (2 x 325 mg) PO Q6H PRN PRN 07/13/17 03/11/24 (Tylenol) #30 tabs fluticasone propionate 250 1 inh inhalation Q12H 01/01/18 03/11/24 mcg/actuation blister powder for inhalation (Flovent Diskus) mirtazapine 7.5 mg tablet 7.5 mg PO HS 05/06/20 03/11/24 quetiapine 50 mg tablet (Seroquel) 50 mg PO HS 07/22/20 03/11/24 valacyclovir 500 mg tablet 500 mg PO BID PRN 08/20/23 03/11/24 lisinopril 10 mg tablet 10 mg PO DAILY 10/25/23 03/11/24 medroxyprogesterone 150 mg/mL 150 mg IM [id number] 10/25/23 03/11/24 intramuscular suspension milnacipran 50 mg tablet (Savella) 50 mg PO DAILY 10/25/23 03/11/24 Previous Rx's ?Medication ?Instructions ?Recorded acetaminophen 325 mg tablet 650 mg (2 x 325 mg) PO Q6H PRN PRN 07/13/17 (Tylenol) #30 tabs Allergies Allergy/AdvReac Type Severity Reaction Status Date / Time lamotrigine Allergy Severe Rash Verified 06/19/24 10:24 topiramate (From Topamax) Allergy Severe Rash Verified 06/19/24 10:24 erythromycin base Allergy Intermediate Skin Rash Verified 06/19/24 10:24 (Erythromycin Base) Penicillins Allergy Intermediate Skin Rash Verified 06/19/24 10:24 propoxyphene napsylate (From Allergy Intermediate Hives Verified 06/19/24 10:24 Darvocet-N 100) amoxicillin Allergy Unknown Skin Rash Verified 06/19/24 10:24 naproxen (From Aleve) Allergy Unknown Other (See Verified 06/19/24 10:24 Comment) cyclobenzaprine (From Allergy unknown Verified 06/19/24 10:24 Flexeril) doxycycline Allergy rash, SOB, Verified 06/19/24 10:24 upset stomach nabumetone Allergy Skin Rash Verified 06/19/24 10:24 oxaprozin Allergy unknown Verified 06/19/24 10:24 ranitidine HCl (From Zantac) Allergy unknown Verified 06/19/24 10:24 Sulfa (Sulfonamide Allergy Hives Verified 06/19/24 10:24 Antibiotics) codeine (Codeine) AdvReac Intermediate Upset Verified 06/19/24 10:24 stomach ibuprofen AdvReac Intermediate upset Verified 06/19/24 10:24 stomach General Stated Complaint: RespSymp KAYLYNN: 3 Review of Systems Constitutional Constitutional: Reports as per HPI and Denies headache(s) Eyes Eyes: Reports as per HPI, Denies eye discharge and Denies irritation ENT Ears, Nose, Mouth, and Throat: Reports as per HPI and Denies headache(s) Cardiovascular Cardiovascular: Reports as per HPI and Denies dyspnea Respiratory Respiratory: Reports as per HPI and Denies dyspnea Gastrointestinal Gastrointestinal: Reports as per HPI, Denies abdominal pain, Denies change in bowel habits, Denies nausea and Denies vomiting Integumentary/Breasts Skin/Breast: Reports as per HPI and Denies rash Neurologic Neurologic: Reports as per HPI and Denies headache(s) Exam Const General: cooperative, healthy appearing, comfortable, no acute distress, well developed and well groomed Nutritional Appearance: well nourished and overweight Orientation: alert and awake [facility] Head: normal to inspection, normocephalic and atraumatic Ears: hearing grossly normal bilaterally and external ears normal General nose exam: external nose normal Face and sinus: normal facial exam, sinuses nontender and face symmetric Mouth: oral mucosae normal, lip normal, tongue normal, oropharynx normal and moist mucous membranes Throat: posterior oropharynx normal, tonsils normal and uvula midline Eyes General: appearance normal, both eyes and all related structures Neck Neck: normal visual inspection, full ROM, no lymphadenopathy and no meningeal signs Chest Chest: normal inspection of the chest and localized rib tenderness with anteroposterior compression (left lower rib, no discoloration, step off or crepitus) Resp Effort & Inspection: normal respiratory effort, able to speak in complete sentences and no respiratory distress Auscultation: clear to auscultation bilaterally, no rales, no rhonchi and no wheezes Cardio Rate: regular rate Rhythm: regular rhythm Heart Sounds: S1 normal and S2 normal Skin General skin exam: no rashes or lesions noted Neuro General: patient alert and patient awake Cognition: normal cognition Speech: speech normal Gait: normal gait Course Vital Signs Vital signs: Vital Signs Temperature 36.3 C L 06/19/24 10:17 Pulse 73 06/19/24 10:17 Respiratory Rate 20 06/19/24 10:17 Blood Pressure 207/122 H 06/19/24 10:17 Pulse Oximetry 93 06/19/24 10:17 Temperature 36.3 C L 06/19/24 10:17 Temperature Source Oral 06/19/24 10:17 Pulse 73 06/19/24 10:17 Respiratory Rate 20 06/19/24 10:17 Blood Pressure 207/122 H 06/19/24 10:17 Blood Pressure Position Sitting 06/19/24 10:17 Pulse Oximetry 93 06/19/24 10:17 Oxygen Delivery Method Room Air 06/19/24 10:17 Oxygen Flow Rate 0 06/19/24 10:17 Pain Level 5 06/19/24 10:17 Comment did not take BP med this morning 06/19/24 10:17 Medical Decision Making Patient is a 48-year-old female presenting today with chief complaint of left- sided rib pain slightly with cough. She reports that the cough for about a week. Denies any fevers. She does have a history of COPD and has been increasing the amount that she is been using her inhalers, reports that she does have plenty of refills left and does not need any further of these. She does find these beneficial although temporizing. Yesterday felt a pop. Since then has been having pain, particularly when she is moving or coughing, taking a deep breath. She states she can be SOB with cough but not with exertion or at baseline. Patient is an active smoker. States that she has had congestion, runny nose, sputum production. On exam, patient appears non-toxic. She is noteably hypertensive but she states she did not take her medications yet today. She is not endoring sxs of end-organ damage assoicated with hypertensive emergency. She has localized rib tenderness left ower rib that is reproducible with movement and palpation. Lungs are clear, normal cardiac exam, no abdominal tenderness. Will place lidoderm patch after patietn return from CXR. Considered PNA, rib fx, viral illness, possible costochondiritis, possible pneumothorax as downstream complication . Her symptoms are not consistent with ACS, PE, dissection. She does not appear septic. XR reviewed by radilogist: Heart size is normal. The mediastinum is not widened. Lungs are clear. No infiltrates nor pleural effusions IMPRESSION: No acute pulmonary findings. Discussed with patient. Advised likely viral illness with costochondritis. Encouraged hydration, supportive care. Encouraged f/u with PCP. Return precautions disucssed. All of her quesitons and concerns were addressed, she is in agreement with this plan. Quality:SDOH Health Related Social Needs: No Data to Display PFSH All Active Problems (Updated 06/19/24 @ 13:00 by MICHAEL Daigle) Acute costochondritis (Acute) Cough (Acute) URI (upper respiratory infection) (Acute) Encounter for screening colonoscopy (Acute) Itching (Acute) Erythema migrans (Lyme disease) (Acute) Tick bite (Acute) Rotator cuff tear, right (Acute) Impingement syndrome of right shoulder (Acute) Bursitis of right shoulder (Acute) Tendonitis of long head of biceps brachii of right shoulder (Acute) Instability of right shoulder joint (Acute) Tear of right glenoid labrum (Acute) Tenosynovitis (Chronic 07/01/13) Back pain (Chronic) Abdominal pain (Chronic) since ? 2015. CT scan neg for GI etiology. Pelvic u/s normal. 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 Follicular cyst of ovary ADHD Lumbar back pain Myositis Mass of left thigh Vaginal discharge Surgical History (Updated 12/04/23 @ 15:35 by Aida Moscoso) History of colonoscopy (~11/2023) Hx of tubal ligation Excision, Lesion (07/13/17) left posterior thigh, benign vascular proliferation and mature fibroadipose tissue Social History Smoking/Tobacco Use Status: Current every day Tobacco Type: cigarettes Smoking risk assessment performed?: Yes Alcohol Intake: current Alcohol Intake frequency: a few times a month Drug use: Never Substance use type: former substance user Housing: house Current gender identity: female Seatbelt use: always Do you feel safe at home: Yes Do you feel safe in your relationship?: Yes
[2024-06-19] MEDS: Lidocaine 5% Patch 1 PATCH TP (13:11)
== END 2024-06-19 13:13 | disposition home or self-care (01) ==
PROVIDERS: Emergency Provider Physician Assistant; PCP Nurse Practitioner Family
DX: J06.9 Acute upper respiratory infection, unspecified (principal); M94.0 Chondrocostal junction syndrome [Tietze]; J44.9 Chronic obstructive pulmonary disease, unspecified; F17.210 Nicotine dependence, cigarettes, uncomplicated
CPT/HCPCS: 99283; 71046

== ENCOUNTER 2024-10-01 13:03 | Outpatient (REF) | payer MEDICAID, SELFPAY ==
[2024-10-01 15:45] LABS: HCT 41.4 % (36.0-46.0); HGB 12.9 g/dL (11.2-15.7); MCH 27.8 pg (27.0-33.0); MCHC 31.2 % (32.0-36.0); MCV 89 fL (80-95); MPV 9.0 fL (8.0-11.0); Platelet Count 412 10^3/uL (130-400); RBC 4.64 10^6/uL (3.93-5.22); RDW 15.7 % (11.7-14.6); RDW-SD 51.3 fL; WBC 14.08 10^3/uL (4.4-10.8)
[2024-10-01 16:18] LABS: ALT 21 U/L (14-59); AST 22 U/L (15-37); Albumin 3.0 g/dL (3.4-5.0); Alkaline Phosphatase 107 U/L (46-116); Anion Gap 9.1 mmol/L (3-11); BUN 12 mg/dL (7-18); Bilirubin, Total 0.4 mg/dL (0.2-1.0); CO2 25.9 mmol/L (21.0-32.0); Calcium 8.9 mg/dL (8.5-10.1); Chloride 108 mmol/L (98-107); Estimated GFR 78.86 (mL/min/1.73m2); Glucose 86 mg/dL (74-106); Potassium 3.6 mmol/L (3.5-5.1); Sodium 143 mmol/L (136-145); TSH (W/Ref FT4) 1.84 uIU/mL (0.36-3.74); Total Protein 7.3 g/dL (6.4-8.2)
== END 2024-10-01 13:04 | disposition home or self-care (01) ==
LOC: NCHCN 13:03
PROVIDERS: PCP Nurse Practitioner Family; Visit Provider Nurse Practitioner Family
DX: R60.0 Localized edema (principal)
CPT/HCPCS: 80053; 85027; 84443

== ENCOUNTER 2024-10-08 11:47 | Outpatient (CLI) | payer MEDICAID, SELFPAY ==
[2024-10-08] MEDS: Inhaler, Assist Device 1 EACH MC (16:35)
[2024-10-08] MEDS: Levalbuterol HFA 15 GM INH 4 PUFF IH (16:35)
--- NOTE | 2024-10-09 07:46 | W.PFT ---
Date of service: 10/08/24 Time of Service: 15:10 Pulmonary Function Test Result Indications: COPD Impression 1. Good patient effort was noted. ATS standards for reproducibility were met. 2. Spirometry showed severe obstructive lung disease with an FEV1 of 46% (1.1 L) 3. Following the administration of a bronchodilator there was not a significant response 4. TLC was low normal. The RV was elevated, suggestive of air trapping. Given low normal TLC, underlying restrictive lung disease is possible and should be considered 5. DLCO was 46%, consistent with a severe defect in alveolar gas exchange
== END 2024-10-08 11:48 | disposition home or self-care (01) ==
PROVIDERS: PCP Nurse Practitioner Family; Visit Provider Internal Medicine Pulmonary Disease
DX: J44.9 Chronic obstructive pulmonary disease, unspecified (principal)
CPT/HCPCS: 94060; 94726; 94729

== ENCOUNTER 2024-11-06 14:50 | Outpatient (CLI) | payer MEDICAID, SELFPAY ==
--- NOTE | 2024-11-06 14:30 | DI.US_ITS ---
APPROVED REPORT EXAM: Comprehensive 2D, Doppler, and color-flow Echocardiogram Patient Location: Out-Patient Field Assembly Supervisor: Kalpana Rodriguze RDCS (AE) Indications: COPD, ROSARIO, Edema Other Information Study Quality: Adequate Conclusion Normal left ventricular wall thickness and chamber size. Ejection fraction is 55%. Wall motion is normal Normal right ventricular size and function Both atria are normal in size Trileaflet aortic valve with mild regurgitation No additional significant valvular disease Borderline dilated ascending aorta measuring 3.44 cm Wall motion Left Ventricle The left ventricle is normal size. The left ventricular systolic function is normal. The left ventricular ejection fraction is within the normal range. There is normal left ventricular wall thickness. There is normal LV segmental wall motion. There is no ventricular septal defect visualized. LVEF is 55%. Right Ventricle The right ventricle is normal size. The right ventricular systolic function is normal. Atria The left atrium size is normal. The right atrium size is normal. The interatrial septum is intact with no evidence for an atrial septal defect. Aortic Valve The aortic valve is normal in structure. Aortic valve is trileaflet. There is no aortic valvular stenosis. Mild aortic regurgitation. Mitral Valve The mitral valve is normal in structure. No evidence of mitral valve stenosis. Trace mitral regurgitation. Tricuspid Valve The tricuspid valve is normal in structure. There is no tricuspid valve stenosis. Trace tricuspid regurgitation. Unable to assess PA pressure. Pulmonic Valve The pulmonary valve is normal in structure. There is no pulmonic valvular stenosis. There is no pulmonic valvular regurgitation. Great Vessels The aortic root is normal in size. The ascending aorta is mildly dilated. Aortic arch is not well visualized. IVC is normal in size and collapses >50% with inspiration. Pericardium There is no pericardial effusion. 2D Dimensions IVSD d PLAX 1.00 cm F: 0.6-1.0 Ao Root d 3.13 cm F: 2.7 - 3.3 LVPW d PLAX 1.00 cm F: 0.6 - 1.0 Ao Asc Diam d 3.44 cm F: 2.3 - 3.1 LVID d PLAX 4.60 cm F: 3.8 - 5.2 LVDs 3.30 cm F: 2.2 - 3.5 LV EF Teichholz 54.9 % FS 28.43 % LV EDV (Teich) 96.3 mL LV ESV (Teich) 43.4 mL M-Mode TAPSE 1.84 cm (M/F) >1.7 Auto EF LV EDV A4C 106.8 mL LV EDV A2C 93.2 mL LV EDV BP 99.7 mL LV ESV A4C 48.0 mL LV ESV A2C 42.3 mL LV ESV BP 44.8 mL LVEF(%) A4C 55.1 % LVEF(%) A2C 54.6 % LVEF(%) BP 55.1 % LV SV A4C 58.8 ml LV SV A2C 50.9 ml LV SV BP 54.9 ml LV CO A4C 5.8 L/min LV CO A2C 5.1 L/min LV CO BP 5.4 L/min HR A4C 97.83 BPM HR A2C 100.00 BPM LV EDV Index (BP) LA Volume LA Length A4C 4.5 cm LA Length A2C 4.5 cm LA Area A4C s 12.44 cm2 LA Area A2C s 11.57 cm2 LA Vol A4C A-L 29.45 mL LA Vol A2C A-L 25.50 mL LA Vol Biplane A-L 27.4 mL LA Vol/BSA A4C A-L LA Vol/BSA A2C A-L LA Vol/BSA BP A-L 14.1 mL/m2 LA Vol A4C MOD 27.4 mL LA Vol A2C MOD 23.6 mL LA Vol BP MOD 25.2 mL RA Volume RA Area A4C 7.6 cm2 RA ESV A4C (A-L) 12.8mL RA Vol/BSA A4C A-L RA Length A4C 3.8 cm RA ESV A4C (MOD) 12.1mL LV Diastology MV E' medial 0.058 (>0.07 m/s) MV E Vmax 0.47 (0.4-1.3 m/s) MV E/E' MED 8.09 (<14) MV A Vmax 1.10 (0.4-1.3 m/s) MV E' lateral 0.087 (>0.1 m/s) E/A Ratio 0.4 MV E/E' LAT 5.36 (<14) MV E' Average 0.073 m/s MV E/E'(average) 6.45 Aortic Valve AoV Vmax 1.48 m/s LVOT Vmax 1.18 m/s AoV Peak Grad 8.8 mmHg LVOT Peak Grad 5.5 mmHg AoV Area (Vmax) 2.28 cm2 LVOT VTI 0.233 m AoV VTI 0.237 m LVOT Mean Grad 3.2 mmHg AoV Mean Laureano. 1.04 m/s LVOT SV 66.95 mL AoV Mean Grad 5.0 mmHg LVOT Diam s 1.90 cm AoV Area (VTI) 2.82 cm2 Velocity Ratio 0.80 Mitral Valve MV DT 241 (160-240 msec) MV Vmax TIPS 1.12 m/s MV Mean Grad 1.5 (<2mmHg) MV VTI 0.235 m Pulmonary Valve PV Vmax 1.11 (0.5-1.5 m/s) RVOT Vmax 0.79 m/s PV Peak Grad 5.0 mmHg RVOT Peak Gr. 2.5 mmHg PV Mean Laureano 0.76 m/s RVOT VTI 0.130 m PV Mean Grad 2.6 mmHg RVOT Mean Gr. 1.4 mmHg Tricuspid Valve RA Pressure 3.00 mmHg TV S' 0.12 m/s
== END 2024-11-06 15:10 ==
LOC: DI 14:50
PROVIDERS: PCP Nurse Practitioner Family; Visit Provider Nurse Practitioner Family
DX: J44.9 Chronic obstructive pulmonary disease, unspecified (principal)
CPT/HCPCS: 93306

== ENCOUNTER 2025-03-04 10:59 | Outpatient (REF) | payer MEDICAID, SELFPAY ==
[2025-03-04 15:57] LABS: Abs Immature Grans 0.03 10^3/uL (0.0-0.06); HCT 43.1 % (36.0-46.0); HGB 13.8 g/dL (11.2-15.7); Immature Grans % 0.2 %; MCH 28.6 pg (27.0-33.0); MCHC 32.0 % (32.0-36.0); MCV 89 fL (80-95); MPV 8.5 fL (8.0-11.0); Platelet Count 454 10^3/uL (130-400); RBC 4.82 10^6/uL (3.93-5.22); RDW 15.8 % (11.7-14.6); RDW-SD 51.7 fL; WBC 12.51 10^3/uL (4.4-10.8)
[2025-03-04 16:16] LABS: ALT 17 U/L (10-49); AST 20 U/L (<34); Albumin 3.9 g/dL (3.2-5.0); Alkaline Phosphatase 100 U/L (46-116); Anion Gap 7.8 mmol/L (3-11); BUN 10 mg/dL (9-23); Bilirubin, Total 0.3 mg/dL (0.2-1.2); CO2 26.2 mmol/L (20.0-31.0); Calcium 9.3 mg/dL (8.3-10.6); Chloride 108 mmol/L (98-107); Cholesterol 153 mg/dL (<200); Glucose 70 mg/dL (74-106); HDL Cholesterol 33 mg/dL (>or=50); Potassium 3.7 mmol/L (3.5-5.1); Sodium 142 mmol/L (136-145); Total Protein 6.5 g/dL (5.7-8.2)
[2025-03-04 16:19] LABS: Hemoglobin A1C 5.9 % (<5.7)
== END 2025-03-04 11:00 | disposition home or self-care (01) ==
LOC: NCHCN 10:59
PROVIDERS: PCP Nurse Practitioner Family; Visit Provider Nurse Practitioner Family
DX: J44.9 Chronic obstructive pulmonary disease, unspecified (principal); R06.09 Other forms of dyspnea; I10 Essential (primary) hypertension; R73.03 Prediabetes; E78.5 Hyperlipidemia, unspecified
CPT/HCPCS: 80053; 80061; 83036; 85025